=== PATIENT | male | born 1980 | race Caucasian/White ===

== ENCOUNTER 2018-08-13 20:25 | Emergency (ER) | payer MEDICAID ==
[2018-08-13 20:42] VITALS: BP 130/66
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
== END 2018-08-13 21:05 | disposition home or self-care (01) ==
LOC: EEVIPCON 20:25
DX: L97.529 Non-pressure chronic ulcer of other part of left foot with unspecified severity (principal); M20.42 Other hammer toe(s) (acquired), left foot

== ENCOUNTER 2018-10-07 20:59 | Inpatient (IN) | payer MEDICAID ==
[2018-10-07] MEDS ORDERED: NS 1,000 ML IV ONE (21:18)
[2018-10-07] MEDS ORDERED: ceFAZolin 2 GM/DEXTROSE 100 ML IV ONE (21:19)
[2018-10-07 22:05] LABS: PLATELET COUNT 176 10^3/uL (150-400)
[2018-10-07] MEDS ORDERED: ONDANSETRON 4 MG/2 ML VIAL IVP PRN (23:25)
[2018-10-07] MEDS ORDERED: NS 1,000 ML IV SCH (23:30)
--- NOTE | 2018-10-08 00:13 | PDGENHP ---
History and Physical - Chief Complaint left elbow pain - History of Present Illness Source - Patient provides history and appears reliable. EMR reviewed and case discussed with ED provider. HPI - this is a pleasant 38-year-old gentleman with past medical history significant for alcohol dependence, and a recent history of osteomyelitis in his left great toe that required amputation. Patient reports multiple injuries related to skateboarding. He recently sustained a fall on his left elbow lacerating it. Normally he has scrapes and cuts which heal on their own however this time patient has had worsening swelling and erythema and pain over the course of several days. Most recently patient had noticed increased swelling at his elbow joint without any joint pain with movement. Patient states that he attempted to squeeze at his elbow wound and he was able to get out serosanguineous type drainage. Patient denies any fevers although he has been feeling a little flushed. He does acknowledge some a night of sweats yesterday. Denies any nausea or vomiting. He denies any numbness tingling in his arm. He has chronic neuropathy in both feet. History Information - Allergies/Home Medication List Allergies/Adverse Reactions: No Known Allergies Allergy (Unverified 10/07/18 21:01) Home Medications: Amitriptyline HCl 08/13/18 [Last Taken Unknown] Gabapentin 08/13/18 [Last Taken Unknown] Hydroxyzine HCl 08/13/18 [Last Taken Unknown] Amitriptyline HCl 10/07/18 [Last Taken Unknown] Gabapentin 800 mg 10/07/18 [Last Taken Unknown] Hydroxyzine HCl 10/07/18 [Last Taken Unknown] I have personally reviewed and updated: family history, medical history, social history, surgical history - Past Medical History Additional medical history: History of osteomyelitis in the left great toe status post amputation. Alcohol dependence. Multiple injuries related to skateboarding accident. - Surgical History Additional surgical history: Left great toe amputation. - Family History Additional family history: Grandmother with colon and bladder cancer. Patient reports he has not seen his family in 7 years but does not believe there is any other chronic medical issues. - Social History Smoking Status: Current every day smoker Tobacco Use: Cigarettes (Up to 1 pack per day.) Alcohol Use: Heavy (Patient drinks hard liquor almost daily.) Drug Use: Marijuana Additional social history: Patient currently residing at a homeless [facility]. Cor status-full. Review of Systems Review of Systems: ROS: 10pt was reviewed & negative except for what was stated in HPI & below Constitutional: Reports: fever, other (Sweats overnight). Denies: chills EENMT: Reports: no symptoms Cardiac: Reports: no symptoms Respiratory: Reports: no symptoms Gastrointestinal: Reports: no symptoms Genitourinary: Reports: no symptoms Muscolosketal: Reports: other (Left arm pain.). Denies: joint pain (Patient denies any joint restrictions in the left elbow.) Skin: Reports: other (Left elbow wound with drainage, swelling, redness of the left forearm and increased pain.) Neurological: Reports: numbness (Patient with chronic neuropathy both feet.). Denies: weakness Hematologic/Lymphatic: Reports: no symptoms Physical Exam Physical Exam: Selected Entries 10/07/18 21:03 Blood Pressure Automatic Method Heart Rate 94 Respiratory 18 Rate O2 Sat (%) 94 Temperature (C) 37.3 C Blood Pressure 113/89 H Mean Arterial 97 Pressure (MAP) O2 Delivery Room Air Mode Temperature Oral Source Temp Pulse Resp BP Pulse Ox 37.0 C 74 16 126/68 H 90 L 10/08/18 00:00 10/08/18 00:00 10/08/18 00:00 10/08/18 00:00 10/08/18 00:00 Constitutional: no apparent distress, appears nourished, uncomfortable Eyes: anicteric sclera, EOMI Ears, Nose, Mouth, Throat: poor dentition, dry mucous membranes, other (No nasal discharge.) Cardiovascular: regular rate and rhythym, no murmur, rub, or gallop, pulses symmetric bilaterally, No edema Peripheral Pulses: 2+: dorsalis-pedis (R), dorsalis-pedis (L) Respiratory: no respiratory distress, no rales or rhonchi, No reduced air movement, No respiratory distress Gastrointestinal: normoactive bowel sounds, soft, non-tender abdomen, no palpable masses, No distension Genitourinary: no bladder tenderness, No delgadillo in urethra Skin: warm, normal color, no rashes or abrasions Neurologic: AAOx3, sensation intact bilaterally (Diminished lower extremities.) , No facial droop Psychiatric: interacting appropriately, not anxious, not encephalopathic, thought process linear Lab Data & Imaging Review 10/07/18 21:50 10/07/18 21:50 WBC 8.55 10^3/uL (3.80-9.50) 10/07/18 21:50 RBC 3.49 10^6/uL (4.40-6.38) L 10/07/18 21:50 Hgb 12.1 g/dL (13.7-17.5) L 10/07/18 21:50 Hct 33.9 % (40.0-51.0) L 10/07/18 21:50 MCV 97.1 fL (81.5-99.8) 10/07/18 21:50 MCH 34.7 pg (27.9-34.1) H 10/07/18 21:50 MCHC 35.7 g/dL (32.4-36.7) 10/07/18 21:50 RDW 13.9 % (11.5-15.2) 10/07/18 21:50 Plt Count 176 10^3/uL (150-400) 10/07/18 21:50 MPV 10.1 fL (8.7-11.7) 10/07/18 21:50 Neut % (Auto) 70.0 % (39.3-74.2) 10/07/18 21:50 Lymph % (Auto) 14.4 % (15.0-45.0) L 10/07/18 21:50 [place] % (Auto) 13.7 % (4.5-13.0) H 10/07/18 21:50 Eos % (Auto) 0.8 % (0.6-7.6) 10/07/18 21:50 Baso % (Auto) 0.5 % (0.3-1.7) 10/07/18 21:50 Nucleat RBC Rel Count 0.0 % (0.0-0.2) 10/07/18 21:50 Absolute Neuts (auto) 5.99 10^3/uL (1.70-6.50) 10/07/18 21:50 Absolute Lymphs (auto) 1.23 10^3/uL (1.00-3.00) 10/07/18 21:50 Absolute Monos (auto) 1.17 10^3/uL (0.30-0.80) H 10/07/18 21:50 Absolute Eos (auto) 0.07 10^3/uL (0.03-0.40) 10/07/18 21:50 Absolute Basos (auto) 0.04 10^3/uL (0.02-0.10) 10/07/18 21:50 Absolute Nucleated RBC 0.00 10^3/uL (0-0.01) 10/07/18 21:50 Immature Gran % 0.6 % (0.0-1.1) 10/07/18 21:50 Immature Gran # 0.05 10^3/uL (0.00-0.10) 10/07/18 21:50 Sodium 133 mEq/L (135-145) L 10/07/18 21:50 Potassium 4.1 mEq/L (3.5-5.2) 10/07/18 21:50 Chloride 98 mEq/L (97-110) 10/07/18 21:50 Carbon Dioxide 28 mEq/l (22-31) 10/07/18 21:50 Anion Gap 7 mEq/L (6-14) 10/07/18 21:50 BUN 10 mg/dL (7-23) 10/07/18 21:50 Creatinine 0.6 mg/dL (0.7-1.3) L 10/07/18 21:50 Estimated GFR > 60 10/07/18 21:50 Glucose 109 mg/dL (70-100) H 10/07/18 21:50 Calcium 8.7 mg/dL (8.5-10.4) 10/07/18 21:50 Imaging Review: Left Elbow, 3 Views Indication: Recent fall. Comparison: None Findings: The bones are anatomically aligned. No fracture or effusion. Moderate soft tissue swelling and subcutaneous gas is present along the dorsal aspect of the olecranon. No retained foreign body or periosteal reaction. Impression: 1. No acute fracture or effusion. 2. Diffuse posterior soft tissue swelling. Subcutaneous gas may be due to penetrating soft tissue injury or gas forming organism infection. No osteomyelitis. Dictated By: He Craft MD Visualized and Interpreted imaging results: Yes Assessment & Plan Assessment: 38-year-old male with history of alcohol dependence and remote osteo on the left great toe status post amputation presents to the emergency department complaining of several days of worsening left arm swelling pain and wound drainage at the left elbow following a fall. #Left arm cellulitis - patient with approximately 1 cm deep wound the left elbow following fall. He has been started on Unasyn. Erythema and swelling are quite extensive and do not feel this would be responsive appropriately to p.o. Antibiotics at this point. Patient with good radial pulse. He does not meet sepsis criteria. Anticipate he will require several days IV antibiotics. #Left elbow wound - patient with illness drainage. Wound cultures been obtained wound care consultation also ordered. X-ray of the elbow does not show any evidence of osteomyelitis. This some subcutaneous air at site of the wound and edema. Continue Unasyn as noted above. #Alcohol dependence - patient is reported history of withdrawals but no seizures. At this point patient feels that he would prefer to try to get off of alcohol and continue with Ativan. His last drink occurred approximately 4: 00 p.m. And patient reports that he still feels slightly buzzed when he arrived to the ED. Will monitor for signs of withdrawal initiate CIWA protocol as appropriate. #Hyponatremia - likely some component of dehydration versus alcohol dependence. Patient will be receiving continued IV fluids overnight on the medical floor will encourage oral intake. He does appear slightly dry. #Tobacco dependence - cessation encouraged. Patient declines nicotine patch. #Marijuana use - cessation also encouraged. #Anemia - likely of chronic disease in setting of alcohol dependence. Patient without elevation in MCV at this time. Thiamine replacement will be ordered. FEN - IV fluids overnight. Monitor sodium otherwise electrolytes appear adequate. Advance diet as tolerated. PPX-SCDs. Holding anticoagulation overnight pending reassessment in the morning for any potential need for surgical evaluation. Overall patient is low risk for DVT however. SCDs will be ordered. Encourage mobilization. Cor status-full Disposition-patient admitted to inpatient status on med surge floor. Anticipate greater than 2 midnight stay given the extensive nature of patient's cellulitis that warrants IV antibiotics at this time.
--- NOTE | 2018-10-08 02:25 | HOSPPROG ---
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 #Left arm cellulitis - patient with approximately 1 cm deep wound the left elbow following fall. He has been started on Unasyn. Erythema and swelling are quite extensive and do not feel this would be responsive appropriately to p.o. Antibiotics at this point. Patient with good radial pulse. He does not meet sepsis criteria. Anticipate he will require several days IV antibiotics. #Left elbow wound - patient with illness drainage. Wound cultures been obtained wound care consultation also ordered. X-ray of the elbow does not show any evidence of osteomyelitis. This some subcutaneous air at site of the wound and edema. Continue Unasyn as noted above. #Alcohol dependence - patient is reported history of withdrawals but no seizures. At this point patient feels that he would prefer to try to get off of alcohol and continue with Ativan. His last drink occurred approximately 4: 00 p.m. And patient reports that he still feels slightly buzzed when he arrived to the ED. Will monitor for signs of withdrawal initiate CIWA protocol as appropriate. #Hyponatremia - likely some component of dehydration versus alcohol dependence. Patient will be receiving continued IV fluids overnight on the medical floor will encourage oral intake. He does appear slightly dry. #Tobacco dependence - cessation encouraged. Patient declines nicotine patch. #Marijuana use - cessation also encouraged. #Anemia - likely of chronic disease in setting of alcohol dependence. Patient without elevation in MCV at this time. Thiamine replacement will be ordered. FEN - IV fluids overnight. Monitor sodium otherwise electrolytes appear adequate. Advance diet as tolerated. PPX-SCDs. Holding anticoagulation overnight pending reassessment in the morning for any potential need for surgical evaluation. Overall patient is low risk for DVT however. SCDs will be ordered. Encourage mobilization. Cor status-full Disposition-patient admitted to inpatient status on [facility] floor. Anticipate greater than 2 midnight stay given the extensive nature of patient's cellulitis that warrants IV antibiotics at this time. Objective: Vital Signs Temp Pulse Resp BP Pulse Ox 37.0 C 74 16 126/68 H 90 L 10/08/18 00:00 10/08/18 00:00 10/08/18 00:00 10/08/18 00:00 10/08/18 00:00 10/06/18 10/07/18 10/08/18 05:59 05:59 05:59 Intake Total 1000 Balance 1000
--- NOTE | 2018-10-08 02:57 | EDPHY ---
H & P Stated Complaint: Elbow Cellulitis Time Seen by Provider: 10/07/18 21:01 HPI/ROS: Chief complaint: Left elbow infection History of present illness: This is a 38-year-old male who presents to the emergency department concerned he has a left elbow infection. Reports a few days ago he fell onto the elbow cutting it open. Since then he has had increasing pain, redness and swelling. No report of fevers or chills, no red streaking, no abnormal coolness or paresthesias in the arm, he can still move the left arm well. His tetanus is reported as up-to-date. Review of systems: A 10 point review of systems was obtained and other than described above was negative - Personal History Current Tetanus/Diphtheria Vaccine: Unsure Current Tetanus Diphtheria and Acellular Pertussis (TDAP): Unsure - Medical/Surgical History Hx Asthma: No Hx Chronic Respiratory Disease: No Hx Diabetes: No Hx Cardiac Disease: No Hx Renal Disease: No Hx Cirrhosis: No Hx Alcoholism: Yes Hx HIV/AIDS: No Hx Splenectomy or Spleen Trauma: No Other PMH: neuropathy - Social History Smoking Status: Current every day smoker - Physical Exam Exam: General Appearance: Alert and nontoxic. Eyes: Pupils equal and round no injection. Respiratory: Chest is nontender, lungs are clear to auscultation. Cardiac: regular rate and rhythm. Gastrointestinal: Abdomen is soft and nontender, no masses, bowel sounds normal. Musculoskeletal: Patient is moving the left upper extremity well. He has full range of motion and strength in the left elbow without pain. Extremities have full range of motion and are nontender. Skin: There is erythema and edema starting around the olecranon region of the left elbow extending around and up onto the bicep region. It is warm and tender to palpation. Constitutional: Initial Vital Signs Temperature (C) 37.3 C 10/07/18 21:03 Heart Rate 94 10/07/18 21:03 Respiratory Rate 18 10/07/18 21:03 Blood Pressure 113/89 H 10/07/18 21:03 O2 Sat (%) 94 10/07/18 21:03 O2 Delivery Mode Room Air Allergies/Adverse Reactions: No Known Allergies Allergy (Unverified 10/07/18 21:01) Home Medications: Medication Instructions Recorded Amitriptyline HCl 08/13/18 Gabapentin 08/13/18 Hydroxyzine HCl 08/13/18 Amitriptyline HCl 10/07/18 Gabapentin 800 mg 10/07/18 Hydroxyzine HCl 10/07/18 Medical Decision Making - Diagnostics Imaging Results: Imaging Impressions Elbow X-Ray 10/07/18 21:18 Impression: 1. No acute fracture or effusion. 2. Diffuse posterior soft tissue swelling. Subcutaneous gas may be due to penetrating soft tissue injury or gas forming organism infection. No osteomyelitis. Imaging: I viewed and interpreted images myself ED Course/Re-evaluation: Patient is discussed with my secondary supervising physician Dr. Maurilio Bunch. Patient presents with what appears to be a significant cellulitis of the left elbow. However I do not appreciate evidence of severe complications such as septic joint or necrotizing fasciitis. Blood studies are obtained. He is started on 2 g of Ancef IV. He is admitted to the hospitalist service under the care of Dr. Savana Little for further evaluation and care. The plan has been discussed with the patient who voiced understanding and agreement with it. Differential Diagnosis: Included but not limited to cellulitis, abscess, bursitis, doubt full osteomyelitis, septic joint or necrotizing fasciitis - Data Points Laboratory Results: Laboratory Results 10/07/18 21:50 10/07/18 21:50 10/07/18 10/07/18 21:50 21:50 WBC 8.55 10^3/uL 10^3/uL (3.80-9.50) RBC 3.49 10^6/uL L 10^6/uL (4.40-6.38) Hgb 12.1 g/dL L g/dL (13.7-17.5) Hct 33.9 % L % (40.0-51.0) MCV 97.1 fL fL (81.5-99.8) MCH 34.7 pg H pg (27.9-34.1) MCHC 35.7 g/dL g/dL (32.4-36.7) RDW 13.9 % % (11.5-15.2) Plt Count 176 10^3/uL 10^3/uL (150-400) MPV 10.1 fL fL (8.7-11.7) Neut % (Auto) 70.0 % % (39.3-74.2) Lymph % (Auto) 14.4 % L % (15.0-45.0) [place] % (Auto) 13.7 % H % (4.5-13.0) Eos % (Auto) 0.8 % % (0.6-7.6) Baso % (Auto) 0.5 % % (0.3-1.7) Nucleat RBC Rel Count 0.0 % % (0.0-0.2) Absolute Neuts (auto) 5.99 10^3/uL 10^3/uL (1.70-6.50) Absolute Lymphs (auto) 1.23 10^3/uL 10^3/uL (1.00-3.00) Absolute Monos (auto) 1.17 10^3/uL H 10^3/uL (0.30-0.80) Absolute Eos (auto) 0.07 10^3/uL 10^3/uL (0.03-0.40) Absolute Basos (auto) 0.04 10^3/uL 10^3/uL (0.02-0.10) Absolute Nucleated RBC 0.00 10^3/uL 10^3/uL (0-0.01) Immature Gran % 0.6 % % (0.0-1.1) Immature Gran # 0.05 10^3/uL 10^3/uL (0.00-0.10) Sodium 133 mEq/L L mEq/L (135-145) Potassium 4.1 mEq/L mEq/L (3.5-5.2) Chloride 98 mEq/L mEq/L (97-110) Carbon Dioxide 28 mEq/l mEq/l (22-31) Anion Gap 7 mEq/L mEq/L (6-14) BUN 10 mg/dL mg/dL (7-23) Creatinine 0.6 mg/dL L mg/dL (0.7-1.3) Estimated GFR > 60 Glucose 109 mg/dL H mg/dL (70-100) Calcium 8.7 mg/dL mg/dL (8.5-10.4) Medications Given: Sodium Chloride (Ns) 1,000 mls @ 125 mls/hr IV CONT MEE Stop: 10/08/18 07:29 Last Admin: 10/08/18 00:34 Dose: 1,000 mls Discontinued Medications Sodium Chloride (Ns) 1,000 mls @ 0 mls/hr IV EDNOW ONE; Wide Open PRN Reason: Protocol Stop: 10/07/18 21:19 Last Admin: 10/07/18 22:00 Dose: 1,000 mls Cefazolin Sodium/Dextrose (Ancef) 100 mls @ 200 mls/hr IV EDNOW ONE PRN Reason: Protocol Stop: 10/07/18 21:48 Last Admin: 10/07/18 22:01 Dose: 100 mls Departure - Departure Disposition: [facility] Inpatient Acute Clinical Impression: Left arm cellulitis Condition: Good
[2018-10-08] MEDS: AMPICILLIN/SULBACTAM 3 GM in NS 100 ML IV SCH ×3 (04:42→20:43)
[2018-10-08] MEDS: IBUPROFEN 600 MG TAB PO PRN ×3 (04:49→20:45)
[2018-10-08 04:53] LABS: PLATELET COUNT 162 10^3/uL (150-400)
[2018-10-08] MEDS: oxyCODONE IR 5 MG TAB PO PRN ×2 (07:56→16:33)
[2018-10-08] MEDS: ACETAMINOPHEN 325 MG TAB PO PRN ×2 (07:56→16:33)
--- NOTE | 2018-10-08 12:52 | HOSPPROG ---
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 First encounter, chart reviewed. *left arm elbow area cellulitis -after fall on ice -on Unasyn -looks like a staph infection -curb sided ID and they agree w current treatment *left elbow wound -wound cx sent -xray shows no osteo *alcohol dependence -CIWA -no s/sx of withdrawal -will order prn Librium *hyponatremia -resolved *Nicotine dependence -declined patch, cessation recommended *Cannibis use *anemia -mild *plan: Mike will require another midnight stay for iv abx Subjective: Mike said he isn't have significant pain from left elbow area. Objective: Vital Signs Temp Pulse Resp BP Pulse Ox 36.8 C 63 14 122/66 H 96 10/08/18 12:00 10/08/18 12:00 10/08/18 12:00 10/08/18 12:00 10/08/18 12:00 Microbiology 10/07/18 23:46 Gram Stain - Final Elbow - Swab Laboratory Results 10/08/18 04:24 10/08/18 04:24 10/07/18 10/08/18 10/09/18 05:59 05:59 05:59 Intake Total 2130 Output Total 725 Balance 1405 - Physical Exam Constitutional: no apparent distress, unkempt Eyes: PERRL Ears, Nose, Mouth, Throat: hearing normal Cardiovascular: regular rate and rhythym Respiratory: no respiratory distress Gastrointestinal: normoactive bowel sounds Skin: other (left elbow area red without lymphadenopathy, able to get some serous purulent drainage) Musculoskeletal: full muscle strength, other (able to bend his elbow area without difficulty) Neurologic: AAOx3 Psychiatric: interacting appropriately ICD10 Worksheet Patient Problems: Problems Problem Status Onset Left arm cellulitis Acute
--- NOTE | 2018-10-08 14:21 | PDMN ---
Medical Necessity Medical necessity: Pt meets IP criteria as of 10/07/2018 per and MCG M-70 ( Cellulitis); est los > 2 mn for ongoing tx and management of L arm cellulitis in the setting of elbow wound s/p fall as well as ETOH dependence, hyponatremia and anemia; requiring IV ABX, CIWA protocol, wound care and pain management.
[2018-10-08] MEDS: GABAPENTIN 400 MG CAP PO SCH ×2 (16:33→20:46)
--- NOTE | 2018-10-08 17:00 | ASMTCMCOM ---
CM Note CM Note Notes: Pt is a 38 yo M with a history of ETOH dependence, osteomylitis of L great toe with am. Needs are TBD at this time. CM to follow. Plan: TBD Date Signed: 10/08/2018 04:59 PM Electronically Signed By:BERTA Sheridan
[2018-10-08] MEDS: LORazepam 0.5 MG TAB PO PRN (17:10)
[2018-10-08] MEDS: AMITRIPTYLINE HCL 25 MG TAB PO SCH (20:45)
[2018-10-08] MEDS: MELATONIN 3 MG TAB PO PRN (20:45)
--- NOTE | 2018-10-08 22:44 | PDCONSULT ---
<Autumn Guevara - Last Filed: 10/08/18 23:11> Field Instructor Note: - Chief Complaint Left elbow pain - History of Present Illness Supervising Physician: Dr. Rell Pineda. HPI: Patient is a pleasant 38-year-old D homeless male who presented to the ED following a left elbow laceration while skateboarding approximately 3-4 days ago, he does not recall exact DOI. He states normally he receives many cuts/ scrapes while skateboarding but this injury continued to cause pain and redness began to develop in addition to swelling. No other inciting injury or previous h/o trauma to the elbow. He presented to the ED 10/07/18 for F/U. He was admitted for cellulitis and placed on antibiotics and his erythema has begun to improve. Pain is well controlled at this time. Denies worsening pain, abnormal numbness/tingling, worsening change in ROM or strength, worsening swelling, fever, chills, worsening change in heat/color to the area since his admittance. History Information - Allergies/Home Medication List Allergies/Adverse Reactions: NKDA. Home Medications: Amitriptyline HCl, Gabapentin, Hydroxyzine. - Past Medical History Additional medical history: Peripheral neuropathy. History of osteomyelitis in the left great toe status post amputation. Alcohol dependence. Multiple injuries related to skateboarding accident. - Surgical History Additional surgical history: Left great toe amputation: no problems with bleeding/anesthesia at that time. - Family History Additional family history: Grandmother with colon and bladder cancer. - Social History Smoking Status: Current every day smoker Tobacco Use: Cigarettes (1ppd). Alcohol Use: Heavy (Daily hard liquor). Drug Use: Marijuana Additional social history: Patient currently residing at a homeless [facility]. FULL code status. POA: Self. Has not spoken to family in 7 years. Review of Systems Review of Systems: ROS: an otherwise 10pt was reviewed & negative except for as stated above. Physical Exam Physical Exam: Alone in room, able to respond appropriately to questions/ commands. Afebrile at this time. Constitutional: NAD, non-labored breathing, no diaphoresis. Eyes: EOMs intact. Ears, Nose, Mouth, Throat: Hearing normal, patent nares, moist bucosa. Cardiovascular: Non-labored breathing, no diaphoresis. Peripheral Pulses: 2+ BLUE/BLLE. Respiratory: Non-labored breathing, no diaphoresis. Gastrointestinal: soft, non-tender abdomen. MS: Focalized exam of b/l upper extremities: 5mm punctate wound noted to left elbow with mild serosanguinous drainage present and erythema around elbow, significantly decreased from prior outline performed in ED. Mild edema noted around area of erythema Calor associated with erythema around the elbow, approximately 11cm, but no longer has lymphangitis seen. No crepitation or gas felt during physical exam. No effusion noted. FROM with 5/5 strength present with brisk cap refill b/l and negative passive stretch. No pain during AROM/ PROM. DNVI with no focal deficits noted. All compartments soft with no other skin breakthrough noted. Calves soft/supple and NTTP b/l with negative b/l Homans. Neurologic: AAOx3, sensation intact bilaterally (Diminished lower extremities coinciding with h/o peripheral neuropathy). Psychiatric: interacting appropriately, not anxious, not encephalopathic, thought process linear Secondary Survey: Negative except for as stated above. Lab Data & Imaging Review Imaging Review: 3 views of left elbow shows no fractures, malalignments or deformities. Soft tissue swelling present over olecranon. Visualized and Interpreted imaging results: Yes by myself and Dr. Pineda. Labs: Swab of elbow wound showed gram positive cocci. Elevated CRP at this time. Will continue to monitor labs. Assessment & Plan Assessment: At this time patient's exam and findings were explained at length to the patient. Recommend continued plan per hospitalists regarding left elbow cellulitis with use of IV antibiotics and I/D consult. At this time appears there is no sign of active septic joint, however, we will continue to monitor as needed in close conjunction with hospitalists. Appreciate their consultation and the ability to assist in the care of this patient. Rest, ice, elevation prn recommended with dry dressing over punctate wound. Continue AROM/ PROM of left elbow as tolerated. Advised patient to watch for worsening pain, abnormal numbness/tingling, worsening ROM or strength, worsening change in heat/color of extremity ( specifically around original markings outlined in the ED) and to seek immediate medical attention if seen. He understands and agrees with this course of action. Patient was seen/examined in conjunction with Dr. Rell Pindea. Questions/concerns can be addressed to our clinic, [facility], at [phone]. <Rell Pineda - Last Filed: 10/09/18 10:29> Field Instructor Note: Agree with above. L elbow is nonsurgical at this time and responding to medical care, including IV abx. No fluid collection such as olecranon bursitis , gas, compartment syndrome or septic arthritis at this time. Continue non-op care, including local wound care. We will follow with you. Please call with any questions or change in his status.
[2018-10-09] MEDS: ACETAMINOPHEN 325 MG TAB PO PRN (00:42)
[2018-10-09] MEDS: oxyCODONE IR 5 MG TAB PO PRN (00:42)
[2018-10-09] MEDS: AMPICILLIN/SULBACTAM 3 GM in NS 100 ML IV SCH ×5 (01:26→23:08)
[2018-10-09] MEDS: IBUPROFEN 600 MG TAB PO PRN ×3 (05:44→23:04)
[2018-10-09] MEDS: GABAPENTIN 400 MG CAP PO SCH ×3 (08:37→21:06)
--- NOTE | 2018-10-09 12:15 | SOAPPROG ---
SOAP Progress Note Assessment/Plan: Assessment: L elbow laceration and wound infection (gm + cocci c/w staph) w/o any significant fluid collection or deep infection such as septic arthritis. He is improving with IV abx and medical management. Plan: Continue IV abx and medical care. Include local wound care with iodoform guaze packing and dsg changes BID-TID. Posterior long arm splint with elbow at 90 degrees, hand/wrist free. Sling prn. NWB LUE. All of the above discussed with Josee, who will obtain splint and apply. Please call with any questions. 10/09/18 12:15 Subjective: Pain well controlled. He feels his elbow is getting better, less red and hot, better motion. No fevers or chills noted. No LULA. Objective: Vital Signs Temp Pulse Resp BP Pulse Ox 36.9 C 85 17 124/91 H 96 10/09/18 12:00 10/09/18 12:00 10/09/18 12:00 10/09/18 12:00 10/09/18 12:00 Microbiology 10/07/18 23:46 Gram Stain - Final Elbow - Swab Laboratory Results 10/08/18 04:24 10/08/18 04:24 10/08/18 10/09/18 10/10/18 05:59 05:59 05:59 Intake Total 2130 2600 Output Total 725 1500 400 Balance 1405 1100 -400 L elbow erythema and calor improved from yesterday, edema present, no ecchymosis. 7-8mm laceration is open and w/o active drainage, though scant amount of purulence is expressible with milking. No palpable FC c/w a bursitis , no gas or crepitation. Compartments soft. ROM: 0-120 limited by minor pain , full P/S. DNVI BUE. Wound packed by me with 1/2" iodoform guaze and re-dressed. Wound does track somewhat, c/w olecranon bursal space. Tolerated well with limited pain. Micro: gm + cocci, most likely staph. ICD10 Worksheet Patient Problems: Problems Problem Status Onset Left arm cellulitis Acute
--- NOTE | 2018-10-09 15:16 | HOSPPROG ---
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 First encounter, chart reviewed. *left arm elbow area cellulitis -after fall on ice -on Unasyn -group A Strep -curb sided ID and they agree w current treatment *left elbow wound -wound cx sent -xray shows no osteo *alcohol dependence -CIWA -no s/sx of withdrawal -will order prn Librium *hyponatremia -resolved *Nicotine dependence -declined patch, cessation recommended *Cannibis use *anemia -mild *plan: Imke will require another midnight stay for iv abx cont supportive care Subjective: Still having pain. Tired. No other issues. Objective: Vital Signs Temp Pulse Resp BP Pulse Ox 36.9 C 85 17 124/91 H 96 10/09/18 12:00 10/09/18 12:00 10/09/18 12:00 10/09/18 12:00 10/09/18 12:00 Microbiology 10/07/18 23:46 Gram Stain - Final Elbow - Swab Laboratory Results 10/08/18 04:24 10/08/18 04:24 10/08/18 10/09/18 10/10/18 05:59 05:59 05:59 Intake Total 2130 2600 Output Total 725 1500 1100 Balance 1405 1100 -1100 - Physical Exam Constitutional: appears nourished, uncomfortable, No obese Eyes: PERRL, anicteric sclera, EOMI Ears, Nose, Mouth, Throat: moist mucous membranes, hearing normal, ears appear normal Cardiovascular: edema, No JVD, No tachycardia Respiratory: no respiratory distress, no rales or rhonchi, reduced air movement Gastrointestinal: normoactive bowel sounds, No tenderness, No ascites Skin: warm, normal color, erythema Musculoskeletal: joint effusion, joint tenderness, pain with ROM Neurologic: AAOx3 Psychiatric: not anxious, not encephalopathic, poor insight, poor judgement ICD10 Worksheet Patient Problems: Problems Problem Status Onset Left arm cellulitis Acute
[2018-10-09] MEDS: AMITRIPTYLINE HCL 25 MG TAB PO SCH (21:07)
[2018-10-09] MEDS: MELATONIN 3 MG TAB PO PRN (21:07)
[2018-10-10] MEDS: AMPICILLIN/SULBACTAM 3 GM in NS 100 ML IV SCH ×3 (05:32→17:50)
[2018-10-10] MEDS: oxyCODONE IR 5 MG TAB PO PRN ×2 (05:35→18:03)
[2018-10-10] MEDS: ACETAMINOPHEN 325 MG TAB PO PRN ×2 (07:41→18:02)
[2018-10-10] MEDS: GABAPENTIN 400 MG CAP PO SCH ×3 (07:41→20:52)
--- NOTE | 2018-10-10 12:55 | SOAPPROG ---
SOAP Progress Note Assessment/Plan: Assessment: L elbow laceration and wound infection with grp A strep pyo w/o any significant fluid collection or deep infection such as septic arthritis. He continues to improve with IV abx and medical management. Plan: Continue IV vs PO abx per ID recs and medical care. Include local wound care with iodoform guaze packing and dsg changes BID-TID while in-pt, daily changes once d/c'd. Consider wound care clinic referral for out-pt care. Posterior long arm splint with elbow at 90 degrees, hand/wrist free. Sling prn. NWB LUE. F/u with me 1 week after d/c. Please call with any questions. 10/09/18 12:15 10/10/18 12:53 Subjective: Continuing to improve subjectively. No LULA. Objective: Vital Signs Temp Pulse Resp BP Pulse Ox 36.6 C 71 16 135/87 H 94 10/10/18 08:00 10/10/18 08:00 10/10/18 08:00 10/10/18 08:00 10/10/18 08:00 Microbiology 10/07/18 23:46 Gram Stain - Final Elbow - Swab Wound Culture - Final Streptococcus Pyogenes Grp A Laboratory Results 10/08/18 04:24 10/08/18 04:24 10/09/18 10/10/18 10/11/18 05:59 05:59 05:59 Intake Total 2600 900 Output Total 1500 2100 Balance 1100 -1200 AF, VSS. L elbow improving with less erythema, edema and +skin wrinkle. Comp' s soft. FROM elbow. Wound packed, no expressible pus or palp FC. DNVI BUE. Micro: +s. pyo A ICD10 Worksheet Patient Problems: Problems Problem Status Onset Left arm cellulitis Acute
--- NOTE | 2018-10-10 13:32 | HOSPPROG ---
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 *left arm elbow area cellulitis -after fall on ice -on Unasyn -group A Strep -appreciate ortho consult *left elbow wound -wound cx sent -xray shows no osteo *alcohol dependence -CIWA -no s/sx of withdrawal -prn Librium *hyponatremia -resolved *Nicotine dependence -declined patch, cessation recommended *Cannibis use *anemia -mild *plan: Mike will require another midnight stay for iv abx cont supportive care Subjective: Feeling better today. Less tired. Objective: Vital Signs Temp Pulse Resp BP Pulse Ox 36.6 C 71 16 135/87 H 94 10/10/18 08:00 10/10/18 08:00 10/10/18 08:00 10/10/18 08:00 10/10/18 08:00 Microbiology 10/07/18 23:46 Gram Stain - Final Elbow - Swab Wound Culture - Final Streptococcus Pyogenes Grp A Laboratory Results 10/08/18 04:24 10/08/18 04:24 10/09/18 10/10/18 10/11/18 05:59 05:59 05:59 Intake Total 2600 900 Output Total 1500 2100 Balance 1100 -1200 - Physical Exam Constitutional: no apparent distress, appears nourished Eyes: PERRL, anicteric sclera Ears, Nose, Mouth, Throat: moist mucous membranes, hearing normal Cardiovascular: No JVD, No edema Respiratory: no respiratory distress, reduced air movement Gastrointestinal: No tenderness, No ascites Skin: warm, erythema, No mottled Musculoskeletal: joint tenderness, pain with ROM, generalized weakness Neurologic: AAOx3 Psychiatric: interacting appropriately, not anxious, not encephalopathic ICD10 Worksheet Patient Problems: Problems Problem Status Onset Left arm cellulitis Acute
[2018-10-10] MEDS: IBUPROFEN 600 MG TAB PO PRN (16:44)
[2018-10-10] MEDS: MELATONIN 3 MG TAB PO PRN (20:52)
[2018-10-10] MEDS: AMITRIPTYLINE HCL 25 MG TAB PO SCH (20:52)
[2018-10-11] MEDS: oxyCODONE IR 5 MG TAB PO PRN ×3 (00:24→21:16)
[2018-10-11] MEDS: AMPICILLIN/SULBACTAM 3 GM in NS 100 ML IV SCH ×4 (00:25→17:34)
[2018-10-11] MEDS: IBUPROFEN 600 MG TAB PO PRN ×2 (00:25→11:52)
[2018-10-11] MEDS: LORazepam 0.5 MG TAB PO PRN ×3 (00:33→17:33)
--- NOTE | 2018-10-11 07:39 | SOAPPROG ---
SOAP Progress Note Assessment/Plan: Assessment: L elbow laceration and wound infection (gm + cocci c/w staph) w/o any significant fluid collection or deep infection such as septic arthritis. He is improving with IV abx and medical management. Plan: Continue IV abx and current medical care per hospital team. Include local wound care with iodoform guaze packing and dsg changes BID-TID. Posterior long arm splint with elbow at 90 degrees, hand/wrist free. Sling prn. NWB LUE. Please call Dr. Castillo or Autumn SANDOVAL with any questions. Discharge: Progressing 10/11/18 07:41 Subjective: Subjective: Pain well controlled and Mike appears to be in good spirit/mood He feels his elbow is getting better day by day, less red and hot, better motion. No fever noted. He is having some intermittent chills. Denies CP, SOB, or N/V Objective: Vital Signs Temp Pulse Resp BP Pulse Ox 36.5 C 67 16 120/93 H 94 10/11/18 07:30 10/11/18 07:30 10/11/18 07:30 10/11/18 07:30 10/11/18 07:30 Microbiology 10/07/18 23:46 Gram Stain - Final Elbow - Swab Wound Culture - Final Streptococcus Pyogenes Grp A Laboratory Results 10/08/18 04:24 10/08/18 04:24 10/10/18 10/11/18 10/12/18 05:59 05:59 05:59 Intake Total 900 350 Output Total 2100 Balance -1200 350 PHYSICAL EXAM Alert and Oriented X3 Normal Mood/Affect Calm appearing LUE Splint and dressing removed. Moderate swelling and erythema localized around elbow (but improved since yesterday). No active drainage as packing is in place. Compartments soft and non-tender. Full ROM of wrist and fingers. Good strategic advisor strength. Distal Neurovasculature intact. ICD10 Worksheet Patient Problems: Problems Problem Status Onset Left arm cellulitis Acute
[2018-10-11] MEDS: GABAPENTIN 400 MG CAP PO SCH ×3 (09:03→20:55)
[2018-10-11] MEDS: ACETAMINOPHEN 325 MG TAB PO PRN (09:03)
--- NOTE | 2018-10-11 10:24 | HOSPPROG ---
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 *left arm elbow area cellulitis -after fall on ice -on Unasyn -group A Strep -appreciate ortho consult -I took care of him two days ago, skin is hot and has serous, purulent drainage when I evaluated today -will ask ID to get involved *left elbow wound -wound cx sent -xray shows no osteo *alcohol dependence -CIWA -no s/sx of withdrawal -prn Librium *hyponatremia -resolved *Nicotine dependence -declined patch, cessation recommended *Cannibis use *anemia -mild *homelessness -will ask CM to arrange a bed at the intermediate * ID to see today. He is improving slowly. Subjective: Mike is c/o ongoing pain at the left elbow site, the splint placed has helped w the pain. Objective: Vital Signs Temp Pulse Resp BP Pulse Ox 36.5 C 67 16 120/93 H 94 10/11/18 07:30 10/11/18 07:30 10/11/18 07:30 10/11/18 07:30 10/11/18 07:30 Microbiology 10/07/18 23:46 Gram Stain - Final Elbow - Swab Wound Culture - Final Streptococcus Pyogenes Grp A Laboratory Results 10/08/18 04:24 10/08/18 04:24 10/10/18 10/11/18 10/12/18 05:59 05:59 05:59 Intake Total 900 350 Output Total 2100 Balance -1200 350 - Physical Exam Constitutional: no apparent distress, appears nourished, uncomfortable Eyes: PERRL Ears, Nose, Mouth, Throat: hearing normal Respiratory: no respiratory distress Skin: warm, other (left forearm area warm, took dressing off and around the packing in the elbow was serous, purulent drainage) Neurologic: AAOx3 Psychiatric: interacting appropriately ICD10 Worksheet Patient Problems: Problems Problem Status Onset Left arm cellulitis Acute
[2018-10-11] MEDS: SULFAMETHOX/TMP 800/160 MG 1 TAB PO SCH ×2 (13:21→20:56)
--- NOTE | 2018-10-11 13:37 | ASMTCMCOM ---
CM Note CM Note Notes: Pt still on IV antibiotics, pt elbow had drainage today. ID to consult. Pt CIWA at 3 now. Pending is antibiotic plan, pt may need wound care clinic. CM to follow. D/c needs TBD still. Date Signed: 10/11/2018 01:36 PM Electronically Signed By:DARLYN Dia
--- NOTE | 2018-10-11 14:10 | PDCONSULT ---
Lawn Care Technician Note: Infectious Diseases Consult Note Impression: 38-year-old man with acute purulent cellulitis the left elbow after a fall. Suspect delayed resolution related to inability of purulence to drain with packing in the wound. Expressed purulence from around the wound until no more expressible fluid is obtainable and left the packing out of the wound so we can drain. Added oral Bactrim as this is consistent with Staphylococcus aureus as a cause of purulent cellulitis. 1. Left elbow cellulitis with underlying abscess, acute; no evidence for septic arthritis 2. Left elbow laceration 3. Alcohol abuse Plan: 1. Continue Unasyn 2. Start Bactrim 2 double-strength twice daily; 3. Discussed potential side effects of both antibiotics which include antibiotic associated diarrhea, C diff colitis, hyperkalemia, rash 4. Repeat CBC with diff and chemistries tomorrow Ladarius Hsieh MD Infectious Diseases Chief Complaint: Redness and pain in left elbow after a fall Requesting Provider: Shannon Keller Reason for Referral: Consultation was requested by Shannon Keller regarding antimicrobial management. HPI: 38-year-old man presented to the ED with approximately a week of increasing erythema, pain, and swelling of the left elbow. He notes a fall from a standing height on black top from a slipped on ice with all of his await the fell onto his left elbow. He was wearing both a long sleeve jacket and a long sleeve shirts at the time of his fall did not have any soil contamination of the caught in his elbow that developed. He notes no shoulder pain from the fall and no other joint pains. He presented to the ED because the pain and swelling did not improve on their own with the erythema spreading down his forearm. He had swelling extending down his forearm and into his hand that included his fingers. The cut that developed in his elbow from the fall initially blood with no purulent discharge. He notes no fever, chills, or night sweats after the fall including over the subsequent days as the swelling and erythema spread. Since admission he has had some improvement of the swelling of the left upper extremity and a slight improvement of the erythema. His arm has been maintained in a splint with dressing changes twice per day. He notes no diarrhea or rash since being placed on Unasyn admission. He has no other acute concerns. Past Medical History: Left great toe osteomyelitis Past Surgical History: Left great toe amputation December 2017 Social History: Smokes approximately a pack of cigarettes per day, drinks alcohol daily smokes marijuana daily, current homeless and sleeping on the street, no sexual activity over the past few months and none since his last HIV test which was negative Family History: No recurrent infections Allergies: NKDA Medications: Reviewed in medical record and confirmed with patient. ROS: 10 organ systems reviewed; pertinent positives and negatives listed in the HPI, all other organ systems negative. Physical Exam: VS: Reviewed Gen: No acute distress; Breathing comfortably without exogenous oxygen; Able to speak in complete sentences Eyes: No conjunctival injection; No scleral icterus HENT: No gross deformities Neck: No limitation in range of motion Pulm: Breath sounds clear to the bases bilaterally; No wheeze, rhonchi, or rales CV: Normal S1 and S2; Regular rate and rhythm; No murmurs, rubs, or gallops; No lower extremity edema Abd: Not distended; Normo-active bowel sounds; Soft; Non-tender Skin: A full skin exam including exposed bilateral upper extremities, bilateral lower extremities to the knees, face, neck, abdomen, chest, and back performed; Skin intact, warm, with no rash excepting the left elbow and erythema extending to the distal forearm MSK: Left elbow with approximately 1 cm linear laceration with visible soft tissue underneath; area of fluctuance distal to the laceration with fluid able to be mobilized and expressed through the laceration approximately 1-2 cc of purulent/bloody drainage expressed on to the gauze pad Ext: No clubbing or cyanosis Neuro: Awake and alert Psych: Normal mood and blunted affect Labs/Imaging: All microbiology testing (culture and non-culture) reviewed in the medical record. Personally reviewed and interpreted the images of the following radiographs: Left elbow x-ray without evidence for fracture. Medications Generic Name Dose Route Start Last Admin Trade Name Freq PRN Reason Stop Dose Admin Ampicillin Sodium/Sulbactam 100 mls @ 200 mls/hr 10/08/18 05:00 10/11/18 11: 52 Sodium 3 gm/ Sodium Chloride IV 11/07/18 04:59 100 mls Q6 [facility] Protocol Trimethoprim/Sulfamethoxazole 2 ea 10/11/18 12:30 10/11/18 13:21 Bactrim Ds PO 11/10/18 12:29 2 ea BID [facility] Protocol Laboratory Tests 10/07/18 10/07/18 10/08/18 21:50 21:50 04:24 WBC 8.55 7.04 Hgb 12.1 L 11.9 L Plt Count 176 162 Creatinine 0.6 L C-Reactive Protein 10/08/18 10/08/18 04:24 04:24 WBC Hgb Plt Count Creatinine 0.6 L C-Reactive Protein 57.6 H Ongoing monitoring for antimicrobial toxicity with: CBC, BMP. [id number] time with patient: 63 minutes with >50% of [id number] time spent in counseling, patient education, and coordinating care. Counseling provided included the microbiology of skin and soft tissue infections, purulent Staph infections, expected time to resolution, natural history without treatment, and side effects of treatment.
[2018-10-11] MEDS: AMITRIPTYLINE HCL 25 MG TAB PO SCH (20:56)
[2018-10-11] MEDS: ceFAZolin 2 GM/DEXTROSE 100 ML IV SCH (20:57)
[2018-10-12] MEDS: ceFAZolin 2 GM/DEXTROSE 100 ML IV SCH ×3 (05:32→21:54)
[2018-10-12] MEDS: oxyCODONE IR 5 MG TAB PO PRN ×3 (05:38→21:54)
[2018-10-12 05:55] LABS: PLATELET COUNT 450 10^3/uL (150-400)
[2018-10-12] MEDS: GABAPENTIN 400 MG CAP PO SCH ×3 (08:41→21:51)
[2018-10-12] MEDS: SULFAMETHOX/TMP 800/160 MG 1 TAB PO SCH ×3 (08:42→21:51)
--- NOTE | 2018-10-12 09:23 | PCMIDPN ---
Assessment/Plan: Assessment: 38-year-old man with acute purulent cellulitis of the left elbow after a fall. There is improvement of the erythema distally from the area of laceration on the left elbow, again able to express 1-2 cc of purulence from the wound. Change the dressing frequency to 3 times a day and wrapped loosely and cover with gauze to allow for drainage. Allowing drainage with accelerate healing and resolution of the cellulitis. 1. Left ankle cellulitis with underlying abscess, acute; no evidence for septic arthritis, improving 2. Left elbow laceration secondary to fall 3. Alcohol abuse 4. Thrombocytosis, likely secondary to inflammatory response related to cellulitis and abscess Plan: 1. Continue cefazolin 2 g q.8h 2. Continue Bactrim but increase dose to 2 double-strength tablets 3 times a day (12.8mg/kg/day) 3. Believe left upper extremity out of splint if tolerated 4. Dressing changes to be 3 times a day with gauze wrapped with Kerlix loosely to allow for drainage; also change dressing if gauze is soiled between scheduled changes 5. Discussed in detail potential side effects of Bactrim including hyperkalemia , increased creatinine, antibiotic associated diarrhea, and C diff colitis Ladarius Hsieh MD Infectious Diseases 10/12/18 09:30 Subjective: No fever or chills but does have occasional sensation of warmth in the morning. Denies diarrhea, nausea, rash. Appetite normal. Ambulating without difficulty. No new concerns today. Objective: Vital Signs Temp Pulse Resp BP Pulse Ox 36.4 C 104 H 14 115/75 95 10/12/18 08:00 10/12/18 08:00 10/12/18 08:00 10/12/18 08:00 10/12/18 08:00 Laboratory Results 10/12/18 05:23 10/12/18 05:23 10/11/18 10/12/18 10/13/18 05:59 05:59 05:59 Intake Total 350 350 Output Total 1450 Balance 350 -1100 ESR 6 MM/HR (0-15) 10/08/18 04:24 C-Reactive Protein 57.6 mg/L (<10.0) H 10/08/18 04:24 Medications Generic Name Dose Route Start Last Admin Trade Name Freq PRN Reason Stop Dose Admin Trimethoprim/Sulfamethoxazole 2 ea 10/12/18 14:00 Bactrim Ds PO 11/11/18 13:59 Q8 [facility] Protocol Cefazolin Sodium/Dextrose 100 mls @ 200 mls/hr 10/11/18 22:00 10/12/18 05:32 Ancef IV 11/10/18 21:59 100 mls Q8HRS [facility] Protocol Discontinued Medications Generic Name Dose Route Start Last Admin Trade Name Shen PRN Reason Stop Dose Admin Ampicillin Sodium/Sulbactam 100 mls @ 200 mls/hr 10/08/18 05:00 10/11/18 17: 34 Sodium 3 gm/ Sodium Chloride IV 11/07/18 04:59 100 mls Q6 [facility] Protocol Microbiology 10/07/18 23:46 Elbow - Swab Gram Stain - Final 10/07/18 23:46 Elbow - Swab Wound Culture - Final Streptococcus Pyogenes Grp A Laboratory Tests 10/08/18 10/08/18 10/12/18 04:24 04:24 05:23 WBC 7.04 9.87 H Hgb 11.9 L 13.4 L Plt Count 162 450 H Potassium Creatinine C-Reactive Protein 57.6 H 10/12/18 05:23 WBC Hgb Plt Count Potassium 4.5 Creatinine 0.7 C-Reactive Protein - Physical Exam General Appearance: alert, no apparent distress, non-toxic EENT: No scleral icterus Extremities: other (Left elbow with approximately 1 cm laceration with erythema extending distally the dorsal forearm and extending medially to the anterior forearm; tenderness about the left elbow with mobilization of fluctuant area) Skin: other (No rash except for the area of cellulitis on the left arm and elbow ) Neuro/Psych: alert, normal mood/affect, oriented x 3, No confused - Time Spent With Patient Time Spent with Patient: greater than 35 minutes Time Spent with Patient: Greater than 35 minutes spent on this patients care, greater than 50% of time spent counseling, educating, and coordinating care regarding the above mentioned plan. ICD10 Worksheet Patient Problems: Problems Problem Status Onset Left arm cellulitis Acute
[2018-10-12] MEDS: IBUPROFEN 600 MG TAB PO PRN ×2 (10:19→16:17)
[2018-10-12] MEDS: ACETAMINOPHEN 325 MG TAB PO PRN (10:20)
[2018-10-12] MEDS: ONDANSETRON DISINTEGRATING 4 MG TAB PO PRN ×2 (12:13→16:17)
--- NOTE | 2018-10-12 16:44 | HOSPPROG ---
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 *left arm elbow area cellulitis -after fall on ice -changed to Cefazolin -Bactrim added for MRSA coverage-he had purulent drainage -group A Strep *left elbow wound -wound cx sent -xray shows no osteo *alcohol dependence -CIWA -no s/sx of withdrawal -prn Librium *hyponatremia -resolved *Nicotine dependence -declined patch, cessation recommended *Cannibis use *anemia -mild *homelessness -will ask CM to arrange a bed at the senior care * Plan: slow improvement, suspect he will dc in the next few days w oral abx Subjective: Mike is feeling better daily. Objective: Vital Signs Temp Pulse Resp BP Pulse Ox 36.3 C 82 12 108/71 94 10/12/18 15:55 10/12/18 15:55 10/12/18 15:55 10/12/18 15:55 10/12/18 15:55 Laboratory Results 10/12/18 05:23 10/12/18 05:23 10/11/18 10/12/18 10/13/18 05:59 05:59 05:59 Intake Total 350 350 Output Total 1450 Balance 350 -1100 - Physical Exam Constitutional: no apparent distress, appears nourished, not in pain Eyes: PERRL Ears, Nose, Mouth, Throat: hearing normal Respiratory: no respiratory distress Skin: warm, other (left forearm still warm, red, less swelling, has a bit more redness extending towards the forearm area) Neurologic: AAOx3 Psychiatric: interacting appropriately ICD10 Worksheet Patient Problems: Problems Problem Status Onset Left arm cellulitis Acute
[2018-10-12] MEDS: AMITRIPTYLINE HCL 25 MG TAB PO SCH (21:51)
[2018-10-13] MEDS: SULFAMETHOX/TMP 800/160 MG 1 TAB PO SCH ×3 (05:42→21:54)
[2018-10-13] MEDS: ceFAZolin 2 GM/DEXTROSE 100 ML IV SCH (05:43)
[2018-10-13 06:10] LABS: PLATELET COUNT 465 10^3/uL (150-400)
--- NOTE | 2018-10-13 08:49 | PCMIDPN ---
Assessment/Plan: Assessment: 38-year-old man with acute purulent cellulitis of the left elbow after a fall. Overall the left elbow cellulitis and abscess or improving, with evolution to serosanguineous drainage as opposed to the gross purulence that was expressed of the last few days. More distally the elbows becoming more indurated with decreased intensity of erythema consistent with improving localized infection. 1. Hyperkalemia, mild; Bactrim side effect 2. Left elbow cellulitis with underlying abscess, acute; no evidence for septic arthritis, improving 3. Left elbow laceration secondary to fall 4. Alcohol abuse 5. Thrombocytosis, likely secondary to inflammatory response related to cellulitis and abscess Plan: 1. Encourage free water intake to clear except potassium, advised he exclude banana with breakfast and his smoothies the contains banana 2. Repeat potassium tomorrow 3. Stopped cefazolin 2 g q.8h 4. Continue Bactrim but decrease dose to 2 double-strength tablets 2 times a day (8.5mg/kg/day) 5. Leave left upper extremity out of splint if tolerated 6. Dressing changes to be 3 times a day with gauze wrapped with Kerlix loosely to allow for drainage; also change dressing if gauze is soiled between scheduled changes 7. Discussed in detail potential side effects of Bactrim including hyperkalemia , increased creatinine, antibiotic associated diarrhea, and C diff colitis Ladarius Hsieh MD Infectious Diseases 10/13/18 08:45 Subjective: No fever or chills. Denies diarrhea, nausea, rash. Appetite normal. Ambulating without difficulty. No new concerns today. Objective: Vital Signs Temp Pulse Resp BP Pulse Ox 36.5 C 84 16 104/71 94 10/13/18 07:29 10/13/18 07:29 10/13/18 07:29 10/13/18 07:29 10/13/18 07:29 Laboratory Results 10/13/18 05:14 10/13/18 05:14 10/12/18 10/13/18 10/14/18 05:59 05:59 05:59 Intake Total 350 500 Output Total 1450 Balance -1100 500 ESR 6 MM/HR (0-15) 10/08/18 04:24 C-Reactive Protein 57.6 mg/L (<10.0) H 10/08/18 04:24 Medications Generic Name Dose Route Start Last Admin Trade Name Shen PRN Reason Stop Dose Admin Cefazolin Sodium/Dextrose 100 mls @ 200 mls/hr 10/11/18 22:00 10/13/18 05:43 Ancef IV 11/10/18 21:59 100 mls Q8HRS [facility] Protocol Trimethoprim/Sulfamethoxazole 2 ea 10/13/18 09:00 Bactrim Ds PO 11/12/18 08:59 BID [facility] Protocol Discontinued Medications Generic Name Dose Route Start Last Admin Trade Name Freq PRN Reason Stop Dose Admin Trimethoprim/Sulfamethoxazole 2 ea 10/11/18 12:30 10/12/18 08:42 Bactrim Ds PO 11/10/18 12:29 2 ea [facility] Protocol Trimethoprim/Sulfamethoxazole 2 ea 10/12/18 16:00 10/13/18 05:42 Bactrim Ds PO 11/11/18 15:59 2 ea Q8 [facility] Protocol Laboratory Tests 10/12/18 10/12/18 10/13/18 05:23 05:23 05:14 WBC 9.87 H 7.95 Hgb 13.4 L 14.2 Plt Count 450 H 465 H Absolute Seg Neuts 4.37 Absolute Band Neuts 0.00 Potassium 4.5 10/13/18 05:14 WBC Hgb Plt Count Absolute Seg Neuts Absolute Band Neuts Potassium 5.3 H - Physical Exam General Appearance: alert, no apparent distress, non-toxic EENT: No scleral icterus Neck: full range of motion, supple Extremities: other (See skin exam) Skin: other (Left elbow erythema with a pocket of fluctuance, expressed serosanguineous fluid is less thick than the previous days, no isadora pus, erythema extends the dorsum of the left forearm approximately [address] towards the wrist with induration more proximally, erythema over the anterior portion of the forearm decreased, there is tenderness to palpation) Neuro/Psych: alert, normal mood/affect, oriented x 3, No confused - Time Spent With Patient Time Spent with Patient: greater than 25 minutes Time Spent with Patient: Greater than 25 minutes spent on this patients care, greater than 50% of time spent counseling, educating, and coordinating care regarding the above mentioned plan. ICD10 Worksheet Patient Problems: Problems Problem Status Onset Left arm cellulitis Acute
[2018-10-13] MEDS: GABAPENTIN 400 MG CAP PO SCH ×3 (09:07→21:54)
[2018-10-13] MEDS: IBUPROFEN 600 MG TAB PO PRN ×3 (09:18→21:55)
[2018-10-13] MEDS: LORazepam 0.5 MG TAB PO PRN ×2 (09:19→19:03)
[2018-10-13] MEDS: oxyCODONE IR 5 MG TAB PO PRN ×3 (09:19→21:55)
[2018-10-13] MEDS: ACETAMINOPHEN 325 MG TAB PO PRN ×2 (14:00→19:04)
--- NOTE | 2018-10-13 14:47 | HOSPPROG ---
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 *left arm elbow area cellulitis -after fall on ice -Cefazolin DC'd -Bactrim added for MRSA coverage-he had purulent drainage -group A Strep *left elbow wound -xray shows no osteo *alcohol dependence -CIWA DC -no s/sx of withdrawal -prn Librium *hyponatremia -resolved *Nicotine dependence -declined patch, cessation recommended *Hyperkalemia -related to bactrim dose -recheck in am *Cannibis use *anemia -mild *homelessness -will ask CM to arrange a bed at the senior living * Plan: slow improvement change to PO abx needs dressing changes 3 times a day follow in hospital Subjective: Feeling better. Less pain in elbow. Objective: Vital Signs Temp Pulse Resp BP Pulse Ox 36.5 C 84 16 104/71 94 10/13/18 07:29 10/13/18 07:29 10/13/18 07:29 10/13/18 07:29 10/13/18 07:29 Laboratory Results 10/13/18 05:14 10/13/18 05:14 10/12/18 10/13/18 10/14/18 05:59 05:59 05:59 Intake Total 350 500 Output Total 1450 Balance -1100 500 - Physical Exam Constitutional: no apparent distress, appears nourished Eyes: PERRL, anicteric sclera Ears, Nose, Mouth, Throat: moist mucous membranes, hearing normal Cardiovascular: No JVD, No edema Respiratory: no respiratory distress, reduced air movement Gastrointestinal: No tenderness, No ascites Skin: warm, erythema Musculoskeletal: joint tenderness, pain with ROM, generalized weakness Neurologic: AAOx3 Psychiatric: not anxious, not encephalopathic, thought process linear ICD10 Worksheet Patient Problems: Problems Problem Status Onset Left arm cellulitis Acute
--- NOTE | 2018-10-13 15:37 | ASMTCMCOM ---
CM Note CM Note Notes: Spoke w/[employer], pt will dc to [facility] on Tuesday on oral abx. CM to call and reserve bed. DC Plan: [facility] Date Signed: 10/13/2018 03:36 PM Electronically Signed By:Carmita Burrell RN
[2018-10-13] MEDS: AMITRIPTYLINE HCL 25 MG TAB PO SCH (21:54)
[2018-10-14] MEDS: IBUPROFEN 600 MG TAB PO PRN (08:20)
[2018-10-14] MEDS: GABAPENTIN 400 MG CAP PO SCH ×3 (08:20→22:20)
[2018-10-14] MEDS: oxyCODONE IR 5 MG TAB PO PRN ×3 (08:20→22:20)
[2018-10-14] MEDS ORDERED: DOXYCYCLINE HYCLATE 100 MG CAP/TAB PO SCH (09:00)
--- NOTE | 2018-10-14 12:53 | PCMIDPN ---
Assessment/Plan: 1. Left elbow septic olecranon bursitis/forearm cellulitis secondary to group a strep: Cellulitic component has markedly improved compared with previous as per patient. Still has some scant drainage from the bursa. Patient was transitioned to Bactrim 2 days ago, but has had recalcitrant hyperkalemia, necessitating a change to doxycycline. Of note, doxycycline unfortunately does not provide good coverage for group a strep. Given extent of infection and his homelessness, would prefer to put him back on cefazolin intravenously while he is in-house, and discharge on Tuesday with an oral beta-lactam. Asked the patient whether not he could remember to take an antibiotic like Keflex 4 times daily. He honestly told me that that would be difficult for him and he would prefer a twice daily drug. Augmentin 875 p. O. Twice daily is fine. Will also ask wound Care to see him. Expressed the importance of making sure that his elbow wound closes, to prevent additional complications such as osteomyelitis. Patient expressed understanding. 2. Miscellaneous: Will obtain hepatitis a total antibody to ensure he is immune in the setting of and hepatitis a outbreak among the homeless. This was explained to him today. He declines a flu vaccine in spite of my counseling. He states his last Tdap was in the past few years, given to him at [facility]. Over 25 min spent with this patient today. Subjective: Still has some tenderness of his left elbow and forearm and mild drainage from the incision. Transition to oral doxycycline this morning given refractory hyperkalemia from Bactrim. Objective: Doxycycline 100 mg p.o. Twice daily (total antibiotics day 7) No fevers Vital Signs Temp Pulse Resp BP Pulse Ox 36.4 C 88 16 104/70 94 10/14/18 08:00 10/14/18 08:00 10/14/18 08:00 10/14/18 08:00 10/14/18 08:00 Laboratory Results 10/13/18 05:14 10/14/18 05:17 10/13/18 10/14/18 10/15/18 05:59 05:59 05:59 Intake Total 500 Balance 500 ESR 6 MM/HR (0-15) 10/08/18 04:24 C-Reactive Protein 57.6 mg/L (<10.0) H 10/08/18 04:24 Wound culture with group a strep - Physical Exam General Appearance: alert, no apparent distress EENT: pharynx normal, No thrush Respiratory: lungs clear Extremities: other (Elbow: Small approximately 1 cm incision over olecranon there is draining a small amount of seropurulent drainage. No fluctuance. He does have some soft tissue pinkish erythema that extends up the forearm that has improved.) ICD10 Worksheet Patient Problems: Problems Problem Status Onset Left arm cellulitis Acute
[2018-10-14] MEDS ORDERED: ceFAZolin 2 GM/DEXTROSE 100 ML IV SCH (13:00)
--- NOTE | 2018-10-14 13:25 | HOSPPROG ---
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 *left arm elbow area cellulitis -after fall on ice -Cefazolin restarted, D/W Dr Perez -Bactrim added for MRSA coverage-he had purulent drainage -group A Strep *left elbow wound -xray shows no osteo *alcohol dependence -CIWA DC -no s/sx of withdrawal -prn Librium *hyponatremia -resolved *Nicotine dependence -declined patch, cessation recommended *Hyperkalemia -related to bactrim dose -DC bactrim -follow labs *Cannibis use *anemia -mild *homelessness -will ask CM to arrange a bed at the residential * Plan: slow improvement change to PO abx needs dressing changes 3 times a day follow in hospital Subjective: Feeling ok. No specific issues. Elbow still painful. Objective: Vital Signs Temp Pulse Resp BP Pulse Ox 36.4 C 88 16 104/70 94 10/14/18 08:00 10/14/18 08:00 10/14/18 08:00 10/14/18 08:00 10/14/18 08:00 Laboratory Results 10/13/18 05:14 10/14/18 05:17 10/13/18 10/14/18 10/15/18 05:59 05:59 05:59 Intake Total 500 Balance 500 - Physical Exam Constitutional: no apparent distress, appears nourished, No obese Eyes: PERRL, anicteric sclera, EOMI Ears, Nose, Mouth, Throat: moist mucous membranes, hearing normal, ears appear normal Cardiovascular: No JVD, No tachycardia, No edema Respiratory: no respiratory distress, no rales or rhonchi, reduced air movement Gastrointestinal: normoactive bowel sounds, No tenderness, No ascites Skin: warm, normal color, No mottled Musculoskeletal: joint tenderness, pain with ROM, generalized weakness Neurologic: AAOx3 Psychiatric: interacting appropriately, not anxious, not encephalopathic ICD10 Worksheet Patient Problems: Problems Problem Status Onset Left arm cellulitis Acute
[2018-10-14] MEDS: LORazepam 0.5 MG TAB PO PRN (13:34)
[2018-10-14] MEDS: ceFAZolin 2 GM/DEXTROSE 100 ML IV SCH ×2 (13:34→23:42)
[2018-10-14] MEDS: ACETAMINOPHEN 325 MG TAB PO PRN (18:52)
[2018-10-14] MEDS: AMITRIPTYLINE HCL 25 MG TAB PO SCH (22:20)
[2018-10-15] MEDS: ceFAZolin 2 GM/DEXTROSE 100 ML IV SCH ×3 (05:42→22:50)
[2018-10-15] MEDS: oxyCODONE IR 5 MG TAB PO PRN ×2 (07:57→22:48)
[2018-10-15] MEDS: ONDANSETRON DISINTEGRATING 4 MG TAB PO PRN (07:57)
[2018-10-15] MEDS: GABAPENTIN 400 MG CAP PO SCH ×3 (07:58→22:48)
--- NOTE | 2018-10-15 09:18 | PCMIDPN ---
Assessment/Plan: 1. Left elbow septic olecranon bursitis/forearm cellulitis secondary to group a strep: Much, much better this morning compared to yesterday. Forearm erythema practically gone, and drainage from the elbow has significantly diminished. Gave patient option of going home today on Augmentin, verses going home tomorrow , and he prefers tomorrow which is fine. Continue cefazolin IV while he is in- house, and change to oral Augmentin 875 p.o. Twice daily for 4 more days. Small incision over olecranon bursa is starting to close today, and emphasized the importance to the patient of making sure this heals. Have also asked him to reconnect with Abdirahman Peguero next week. He does not necessarily need to follow up with us. Given that the wound is closing, I do not feel he needs wound Care Clinic, either. 2. Miscellaneous: Hepatitis a total antibody should be run in the morning; if not immune needs 1st vaccine prior to discharge. This was also conveyed to him today. He declines a flu vaccine as per my note yesterday, and states he is up-to-date on Tdap. Will also try to get patient a new shirt (have spoken with social work), as he states he bled through all of the clothes he had previously. 3. Transaminitis: Talked to the patient about this today, and gave him a printout of his lab results to take to [facility]. Needs screening for hepatitis B and C moving forward. This could also be related to alcoholic hepatitis, as the patient imbibes quite a bit of alcohol. Counseled him to stop that. Over 25 min spent with this patient today. 10/15/18 09:19 Subjective: Arm is much less tender and much less swollen today. Erythema along his forearm is practically gone. Long conversation with patient today about unexplained transaminitis, and plans moving forward to reconnect with Abdirahman Peguero. Objective: Cefazolin 2 g IV q.8 hours antibiotics day 8 No fevers Vital Signs Temp Pulse Resp BP Pulse Ox 36.3 C 82 14 111/71 96 10/15/18 07:51 10/15/18 07:51 10/15/18 07:51 10/15/18 07:51 10/15/18 07:51 Laboratory Results 10/13/18 05:14 10/15/18 05:30 10/14/18 10/15/18 10/16/18 05:59 05:59 05:59 Intake Total 750 Balance 750 ESR 6 MM/HR (0-15) 10/08/18 04:24 C-Reactive Protein 57.6 mg/L (<10.0) H 10/08/18 04:24 - Physical Exam General Appearance: alert, no apparent distress EENT: No thrush Respiratory: lungs clear Extremities: other (Left arm: Scant drainage from small incision over bursa. Forearm erythema is practically gone. Swelling is much better today as well. No fluctuance around the bursa.) ICD10 Worksheet Patient Problems: Problems Problem Status Onset Left arm cellulitis Acute
--- NOTE | 2018-10-15 12:06 | HOSPPROG ---
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 *left arm elbow area cellulitis -after fall on ice -Cefazolin restarted, D/W Dr Perez -Bactrim added , did not tolerate -cont cefazolin, change to augmentin in am -group A Strep *left elbow wound -xray shows no osteo *alcohol dependence -CIWA DC -no s/sx of withdrawal -prn Librium *elevated LFT -hep A pending -needs outpatient follow up *hyponatremia -resolved *Nicotine dependence -declined patch, cessation recommended *Hyperkalemia -related to bactrim dose -DC bactrim -follow labs *Cannibis use *anemia -mild *homelessness -will ask CM to arrange a bed at the care home * Plan: slow improvement follow in hospital cont IV abx change to PO abx in am recheck potassium in am Subjective: Feeling better today. Less pain and tenderness. Objective: Vital Signs Temp Pulse Resp BP Pulse Ox 36.3 C 82 14 111/71 96 10/15/18 07:51 10/15/18 07:51 10/15/18 07:51 10/15/18 07:51 10/15/18 07:51 Laboratory Results 10/13/18 05:14 10/15/18 05:30 10/14/18 10/15/18 10/16/18 05:59 05:59 05:59 Intake Total 750 Balance 750 - Physical Exam Constitutional: no apparent distress, appears nourished, not in pain Eyes: PERRL, anicteric sclera, EOMI Ears, Nose, Mouth, Throat: moist mucous membranes, hearing normal, ears appear normal Cardiovascular: regular rate and rhythym, No JVD, No edema Respiratory: no respiratory distress, no rales or rhonchi, reduced air movement Gastrointestinal: normoactive bowel sounds, No tenderness, No ascites Skin: warm, abrasion, erythema, No mottled Musculoskeletal: full muscle strength, joint tenderness, pain with ROM Neurologic: AAOx3 Psychiatric: interacting appropriately, not anxious, not encephalopathic ICD10 Worksheet Patient Problems: Problems Problem Status Onset Left arm cellulitis Acute
[2018-10-15] MEDS: LORazepam 0.5 MG TAB PO PRN (13:54)
--- NOTE | 2018-10-15 15:44 | ASMTCMCOM ---
CM Note CM Note Notes: CM met with patient, he states he understands the plan is to discharge tomorrow and will take a long term bed placement tomorrow. We discussed [facility] service, he states he doesn't think he is connected to [facility] and has been having a difficult time getting around. CM completed online Medical Certificate of Transportation, CM explained process and patient will call [facility] (gave ) to confirm they received the form. Patient to call [facility] tomorrow to schedule a follow up appointment. Patient states he is interested in connecting to mental health support and will attempt to connect to [facility], CM encouraged patient to ask about connecting to Mental Health through [facility] as well. Patient is in need of a large shirt and pants. CM to look and see if there are any options in the clothing closet for him. CM to follow. D/C Plan: [facility] bed Date Signed: 10/15/2018 03:43 PM Electronically Signed By:Nidhi Weaver
[2018-10-15] MEDS: ACETAMINOPHEN 325 MG TAB PO PRN (18:23)
[2018-10-15] MEDS: AMITRIPTYLINE HCL 25 MG TAB PO SCH (22:48)
[2018-10-16] MEDS: AMOXICILLIN/CLAVULANATE POT 875/125 MG TAB PO SCH ×2 (05:33→07:57)
[2018-10-16 06:52] LABS: HEPATITIS A ANTIBODY TOTAL NEGATIVE (NEGATIVE)
[2018-10-16 07:43] VITALS: BP 110/86
[2018-10-16] MEDS: GABAPENTIN 400 MG CAP PO SCH (07:58)
[2018-10-16] MEDS: oxyCODONE IR 5 MG TAB PO PRN (08:02)
[2018-10-16] MEDS ORDERED: HEPATITIS A VIRUS VACCINE 1,440 UNIT/ML SYRINGE IM ONE (08:50)
--- NOTE | 2018-10-16 08:53 | PCMIDPN ---
Assessment/Plan: Assessment: 38-year-old man with acute purulent cellulitis of the left elbow after a fall. Erythema and fluctuance area have resolved. 1. Hyperkalemia, mild; Bactrim side effect; resolved with cessation of Bactrim 2. Left elbow cellulitis with underlying abscess, acute; no evidence for septic arthritis, improved 3. Left elbow laceration secondary to fall; healing 4. Alcohol abuse 5. Thrombocytosis, likely secondary to inflammatory response related to cellulitis and abscess Plan: 1. Finish planned Augmentin x4 more days 2. Follow-up in the ID clinic or with clinica 3. Hepatitis a vaccine x1 today followed by a 2nd dose in 4 weeks 4. Discussed in detail potential side effects of Augmentin including hyperkalemia, increased creatinine, antibiotic associated diarrhea, and C diff colitis Ladarius Hsieh MD Infectious Diseases 10/16/18 08:54 10/16/18 08:56 Subjective: No fever or chills. Denies diarrhea, nausea, rash. Appetite normal. Ambulating without difficulty. No new concerns today. Left elbow feels near-normal. Objective: Vital Signs Temp Pulse Resp BP Pulse Ox 36.6 C 72 16 110/86 H 96 10/16/18 07:41 10/16/18 07:41 10/16/18 07:41 10/16/18 07:41 10/16/18 07:41 Laboratory Results 10/13/18 05:14 10/16/18 04:49 10/15/18 10/16/18 10/17/18 05:59 05:59 05:59 Intake Total 750 Balance 750 ESR 6 MM/HR (0-15) 10/08/18 04:24 C-Reactive Protein 57.6 mg/L (<10.0) H 10/08/18 04:24 Laboratory Tests 10/12/18 10/13/18 10/14/18 05:23 05:14 13:30 WBC 9.87 H 7.95 Hgb 13.4 L 14.2 Plt Count 450 H 465 H Sodium Potassium Hepatitis A Ab Total NEGATIVE 10/15/18 10/16/18 05:30 04:49 WBC Hgb Plt Count Sodium 136 137 Potassium 5.6 H 4.6 Hepatitis A Ab Total - Physical Exam General Appearance: alert, no apparent distress, non-toxic EENT: No scleral icterus Extremities: other (Dressing taken down over left elbow, completely resolved erythema, slight swelling in fluctuance around the healing laceration, fluctuance that was previously present or distally has resolved, he has desquamation over the distal part of the left elbow) Neuro/Psych: alert, normal mood/affect, oriented x 3, No confused ICD10 Worksheet Patient Problems: Problems Problem Status Onset Left arm cellulitis Acute
--- NOTE | 2018-10-16 08:54 | HOSPPROG ---
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 Evaluated patient w Dr Hsieh this morning *left arm elbow area cellulitis -after fall on ice -Cefazolin restarted -dc on augmentin -cont cefazolin, change to augmentin in am -group A Strep *left elbow wound -xray shows no osteo *alcohol dependence -CIWA DC -no s/sx of withdrawal -prn Librium *elevated LFT *hyponatremia -resolved *Nicotine dependence -declined patch, cessation recommended *Hyperkalemia -related to bactrim dose -DC bactrim -follow labs *Cannibis use *anemia -mild *homelessness -will ask CM to [facility] bed [facility] *Plan: CM to get him clothes, Hepatitis A shot prior to dc, Augmentin from [facility] Subjective: Mike is feeling fine this morning, no coomplaints. Objective: Vital Signs Temp Pulse Resp BP Pulse Ox 36.6 C 72 16 110/86 H 96 10/16/18 07:41 10/16/18 07:41 10/16/18 07:41 10/16/18 07:41 10/16/18 07:41 Laboratory Results 10/13/18 05:14 10/16/18 04:49 10/15/18 10/16/18 10/17/18 05:59 05:59 05:59 Intake Total 750 Balance 750 - Physical Exam Constitutional: no apparent distress, appears nourished, not in pain Eyes: PERRL Ears, Nose, Mouth, Throat: hearing normal Respiratory: no respiratory distress Skin: other (left elbow area with no further erythema) Musculoskeletal: full muscle strength Neurologic: AAOx3 Psychiatric: interacting appropriately ICD10 Worksheet Patient Problems: Problems Problem Status Onset Left arm cellulitis Acute
--- NOTE | 2018-10-16 09:32 | ASMTLACE ---
[facility] Length of stay for Answers: 7-13 days current admission Acuity / Level of Answers: Yes Care: Did the patient have an inpatient admission? Comorbidities - select Answers: Other Notes: Hx of osteomyelitis all that apply # of Emergency department Answers: 1-2 visits in the last 6 months Social determinants Answers: History of substance abuse (ETOH, street drugs, prescription drugs, etc.) Score: 13 Date Signed: 10/16/2018 09:31 AM Electronically Signed By:BERTA Sellers
--- NOTE | 2018-10-16 09:43 | ASMTDCNOTE ---
Case Management Discharge Discharge Order Complete? Answers: Yes Patient to Obtain Answers: Independently Medications Transportation Arranged Answers: Bus Tokens EMTALA Complete Answers: No Case Management Transport Answers: No Form Complete Faxed Final Orders Answers: No Agency/Facility Transfer Answers: No Report Printed & Faxed to Receiving Agency Family Notified Answers: No Discharge Comments Notes: Pts case discussed w/ Shannon Keller NP and ANJELICA Mahoney. Pt is being d/c'd today. CM reserved a skilled nursing bed with [facility], provided pt w/ clothes and a bus pass. Referral made to [facility]. No other needs at this time. CM available for changes. Plan: Independent Date Signed: 10/16/2018 09:42 AM Electronically Signed By:BERTA Sellers
--- NOTE | 2018-10-16 10:01 | GDS ---
[f rep st] DISCHARGE SUMMARY DISCHARGE DIAGNOSES: 1. Left arm elbow cellulitis. 2. Alcohol dependence. 3. Elevated liver enzymes. 4. Hyponatremia. 5. Nicotine dependence. 6. Hyperkalemia. 7. Cannabis use. 8. Anemia. 9. Homelessness. CONSULTATION: Dr. Henry Hsieh with Infectious Disease. HISTORY OF PRESENT ILLNESS: Briefly, the patient is a 38-year-old gentleman with a past medical history significant for alcohol dependence. He has a recent history of osteomyelitis in his left great toe that required amputation. He has had multiple injuries related to skateboarding. He recently sustained a fall landing on his left elbow lacerating it. He was seen and evaluated by Orthopedics and recommendation with dressing changes and close monitoring. In addition, he was seen and evaluated by the Infectious Disease team. He was initially treated with Unasyn, Bactrim was added for MRSA coverage. During his stay he developed hyperkalemia secondary to Bactrim. This was discontinued. He will be discharged today on Augmentin. Recommendation is for him to follow up with Infectious Disease. He will get a hepatitis A shot today and will need one more in 4 weeks. HOSPITAL COURSE PER PROBLEM: 1. Left arm elbow cellulitis. He is doing markedly better. It is almost completely resolved with a small scab. 2. Alcohol dependence. He has had no signs or symptoms of withdrawal at discharge. Recommending abstinence with all alcohol use. 3. Elevated liver enzymes. This is likely secondary to his alcohol use. 4. Hyponatremia, resolved. 5. Nicotine dependence. He had a patch in place. 6. Hyperkalemia. This resolved. This was due to Bactrim. 7. Cannabis use. 8. Anemia, resolved. 9. Homelessness. He will go to the alf this evening. DISCHARGE CONDITION: Stable. VITAL SIGNS: Blood pressure is 110/86, heart rate is 72, respiratory rate is 16 , O2 sats on room air 96%, temperature is 36.6 Celsius. MEDICATIONS AT DISCHARGE: Please see the EMR. DISCHARGE INSTRUCTIONS: 1. To follow up with Orthopedics, they have written out in detail what they would like him to do. 2. Follow up with Dr. Ladarius Hsieh in 2-4 weeks. 3. Get his 2nd hepatitis A shot in 4 weeks. Greater than 30 minutes discharging and coordinating the patient's care. /[id number]/MODL MTDD
== END 2018-10-16 10:15 | disposition home or self-care (01) | DRG 383 ==
LOC: EDUNIT# → F3N 23:54 → F3E 10-11 13:36
PROVIDERS: ADMIT Family Medicine; ATTEND Family Medicine
DX: L03.114 Cellulitis of left upper limb (principal); E87.1 Hypo-osmolality and hyponatremia; E87.5 Hyperkalemia; D64.9 Anemia, unspecified; S51.012A Laceration without foreign body of left elbow, initial encounter; B95.0 Streptococcus, group A, as the cause of diseases classified elsewhere; W19.XXXA Unspecified fall, initial encounter; M70.22 Olecranon bursitis, left elbow; T37.0X5A Adverse effect of sulfonamides, initial encounter; E86.9 Volume depletion, unspecified; F10.20 Alcohol dependence, uncomplicated; F17.210 Nicotine dependence, cigarettes, uncomplicated; F12.90 Cannabis use, unspecified, uncomplicated; Z59.0 Homelessness; Z89.412 Acquired absence of left great toe; Z80.0 Family history of malignant neoplasm of digestive organs; Z80.52 Family history of malignant neoplasm of bladder
CPT/HCPCS: 86708-90; 96365; J0295; J0690

== ENCOUNTER 2018-10-26 01:07 | Emergency (ER) | payer MEDICAID ==
[2018-10-26 01:13] VITALS: BP 145/91
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
== END 2018-10-26 01:18 ==
DX: M79.671 Pain in right foot (principal); M79.672 Pain in left foot; G89.29 Other chronic pain; F17.200 Nicotine dependence, unspecified, uncomplicated; F10.99 Alcohol use, unspecified with unspecified alcohol-induced disorder; Z59.0 Homelessness

== ENCOUNTER 2018-11-01 15:13 | Emergency (ER) | payer MEDICAID ==
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
[2018-11-01] MEDS ORDERED: NS 1,000 ML IV ONE ×2 (19:41)
[2018-11-01] MEDS ORDERED: CHLORDIAZEPOXIDE 25MG PREPK#6 BTL TAKEHOME ONE (22:23)
[2018-11-01] MEDS ORDERED: chlordiazePOXIDE 25 MG CAP ONE (22:30)
[2018-11-01] MEDS ORDERED: chlordiazePOXIDE 25 MG CAP PO ONE (22:30)
[2018-11-01 22:36] VITALS: BP 97/67
== END 2018-11-01 23:23 | disposition home or self-care (01) ==
LOC: EDUNIT#
DX: T68.XXXA Hypothermia, initial encounter (principal); F10.129 Alcohol abuse with intoxication, unspecified; E86.9 Volume depletion, unspecified; Z59.0 Homelessness; Z89.412 Acquired absence of left great toe

== ENCOUNTER 2018-11-11 22:45 | Inpatient (IN) | payer MEDICAID ==
--- NOTE | 2018-11-12 04:20 | EDPHY ---
H & P Stated Complaint: L foot frostbite Time Seen by Provider: 11/12/18 04:19 HPI/ROS: HPI CHIEF COMPLAINT: Worsening left foot pain. HISTORY OF PRESENT ILLNESS: Patient is a 38-year-old male, homeless, presents to the emergency room with left worsening foot pain. Patient states for the past 48 hr if it increasing pain and drainage from his 2nd and 3rd toe and swelling and redness. Unsure about fever. However he states providing him to function walk. The pain has gotten worse. Patient states he initially got frostbite to his toes. Past Medical History: Significant medical history for cellulitis, alcohol dependency, hyponatremia, left elbow cellulitis Past Surgical History: Previous left great toe amputation. Social History: Smokes marijuana. Homeless. Family History: Noncontributory ROS REVIEW OF SYSTEMS: 10 Systems were reviewed and negative with the exception of the elements mentioned in the history of present illness. Exam Constitutional triage nursing summary reviewed, vital signs reviewed, awake/ alert. Eyes normal conjunctivae and sclera, EOMI, PERRLA. HENT normal inspection, atraumatic, moist mucus membranes, no epistaxis, neck supple/ no meningismus, no raccoon eyes. Respiratory clear to auscultation bilaterally, normal breath sounds, no respiratory distress, no wheezing. Cardiovascular rate normal, regular rhythm, no murmur, no edema, distal pulses normal. Gastrointestinal soft, non-tender, no rebound, no guarding, normal bowel sounds, no distension, no pulsatile mass. Genitourinary no CVA tenderness. Musculoskeletal Left lower extremity: Mild redness over the dorsum of the foot as well as the anterior tibia, his 1st great toe is previously amputated, 2nd and 3rd toe her swollen erythematous, appear infected grossly, and pus. Blackness to the distal aspect of the 3rd toe. no midline vertebral tenderness, full range of motion, no calf swelling, no tenderness of extremities, no meningismus, good pulses, neurovascularly intact. Skin pink, warm, & dry, no rash, skin atraumatic. Neurologic awake, alert and oriented x 3, AAOx3, moves all 4 extremities equally, motor intact, sensory intact, CN II-XII intact, normal cerebellar, normal vision, normal speech. Psychiatric normal mood/affect. Heme/Lymph/Immune no lymphadenopathy. Differential Diagnosis: Includes but is not limited to in a particular order frostbite of the toes, soft tissue infection, cellulitis, osteomyelitis, abscess , necrotizing fasciitis. Medical Decision Making: Plan for this patient IV establishment, inflammatory markers, blood cultures, IV vancomycin IV Zosyn, x-ray left foot, most likely needs admission to the hospital for surgical treatment and antibiotics. Re-evaluation: X-ray left foot review shows bony destruction of the 2nd phalanx. Plan for patient be admitted the hospital for IV antibiotics, further evaluation of his left foot cellulitis and infected toes. Concern for osteomyelitis. Will consult the hospitalist service for admission Serum alcohol level 282. Hospitalist service consult Dr. Ferguson, Agrees to admit. Source: Patient - Personal History Current Tetanus Diphtheria and Acellular Pertussis (TDAP): Yes - Medical/Surgical History Hx Asthma: No Hx Chronic Respiratory Disease: No Hx Diabetes: No Hx Cardiac Disease: No Hx Renal Disease: No Hx Cirrhosis: No Hx Alcoholism: Yes Hx HIV/AIDS: No Hx Splenectomy or Spleen Trauma: No Other PMH: neuropathy,frostbite, - Social History Smoking Status: Current every day smoker Constitutional: Initial Vital Signs Temperature (C) 36.4 C 11/11/18 23:22 Heart Rate 84 11/11/18 23:22 Respiratory Rate 16 11/11/18 23:22 Blood Pressure 145/74 H 11/11/18 23:22 O2 Sat (%) 92 11/11/18 23:22 O2 Delivery Mode Room Air Allergies/Adverse Reactions: No Known Allergies Allergy (Unverified 11/11/18 23:22) Home Medications: Medication Instructions Recorded Amitriptyline HCl [Elavil] 25 mg PO TID 10/08/18 Gabapentin [Gabapentin 800 mg] 800 mg PO TID 10/08/18 Herbals/Supplements -Info Only 1 ea PO DAILY 10/08/18 Melatonin [Melatonin 3 MG (*)] 3 mg PO HS PRN 10/08/18 Multivitamins [Multivitamin (*)] 1 each PO DAILY 10/08/18 [place]-3 Fatty Acids [Fish Oil 1000 1,000 mg PO DAILY 10/08/18 mg (*)] hydrOXYzine HCL [Vistaril 50MG 50 mg PO DAILY 10/08/18 (RX)] hydrOXYzine HCL [Vistaril 50MG 50 mg PO TID PRN 10/08/18 (RX)] Medical Decision Making - Data Points Laboratory Results: Laboratory Results 11/12/18 04:38 11/12/18 04:38 Medications Given: Acetaminophen (Tylenol) 650 mg PO Q4HRS PRN PRN Reason: Pain, Mild/Fever, Can Take PO Stop: 05/11/19 06:01 Last Admin: 11/12/18 09:50 Dose: 650 mg Enoxaparin Sodium (Lovenox) 40 mg SC DAILY [facility] Stop: 05/11/19 08:59 Last Admin: 11/12/18 10:10 Dose: Not Given Ethyl Alcohol (Vodka) 50 ml PO TID [facility] Stop: 05/11/19 12:14 Last Admin: 11/12/18 22:11 Dose: 50 ml Folic Acid (Folic Acid) 1 mg PO DAILY [facility] Stop: 05/11/19 08:59 Last Admin: 11/12/18 09:50 Dose: 1 mg Vancomycin HCl 1.25 gm/ Sodium (Chloride) 250 mls @ 166.667 mls/hr IV Q12H [facility] Stop: 12/12/18 16:59 Last Admin: 11/12/18 17:03 Dose: 250 mls Piperacillin/Tazobactam/Dextrose (Zosyn 3.375 Gm (Premix)) 50 mls @ 100 mls/hr IV Q6HRS [facility] PRN Reason: Protocol Stop: 12/12/18 14:59 Last Admin: 11/13/18 00:49 Dose: 50 mls Multivitamins (Tab-A-Ree) 1 each PO DAILY [facility] Stop: 05/11/19 08:59 Last Admin: 11/12/18 09:50 Dose: 1 each Oxycodone HCl (Oxycodone Ir) 5 - 10 mg PO Q4HRS PRN; Protocol PRN Reason: 1 tab for mod or 2 severe pain Stop: 11/22/18 11:48 Last Admin: 11/13/18 00:56 Dose: 10 mg Discontinued Medications Sodium Chloride (Ns) 1,000 mls @ 0 mls/hr IV EDNOW ONE; Wide Open PRN Reason: Protocol Stop: 11/12/18 04:27 Last Admin: 11/12/18 05:40 Dose: 1,000 mls Vancomycin/Sodium Chloride (Vancomycin 1 Gm (Premix)) 250 mls @ 250 mls/hr IV EDNOW ONE PRN Reason: Protocol Stop: 11/12/18 05:26 Last Admin: 11/12/18 07:17 Dose: 250 mls Piperacillin/Tazobactam/Dextrose (Zosyn (Premix)) 100 mls @ 200 mls/hr IV EDNOW ONE PRN Reason: Protocol Stop: 11/12/18 04:56 Last Admin: 11/12/18 08:27 Dose: 100 mls Lorazepam (Ativan Injection) 0 mg IVP Q1H PRN; Protocol PRN Reason: Alcohol Withdrawal w/IV access Stop: 05/11/19 06:04 Last Admin: 11/12/18 10:16 Dose: 2 mg Lorazepam (Ativan) 1 mg PO ONCE ONE Stop: 11/12/18 15:03 Last Admin: 11/12/18 17:04 Dose: 1 mg Departure - Departure Disposition: [facility] Clinical Impression: Cellulitis of foot Osteomyelitis Qualifiers: Osteomyelitis type: unspecified type Osteomyelitis location: foot Laterality: left Qualified Code(s): M86.9 - Osteomyelitis, unspecified Condition: Serious
[2018-11-12] MEDS ORDERED: NS 1,000 ML IV ONE (04:26)
[2018-11-12] MEDS ORDERED: VANCOMYCIN HCL/NORMAL SALINE 250 ML IV ONE (04:27)
[2018-11-12] MEDS ORDERED: PIPERACILLIN/TAZO 4.5 GM/DEX 100 ML IV ONE (04:27)
[2018-11-12 04:50] LABS: PLATELET COUNT 310 10^3/uL (150-400)
[2018-11-12 04:59] LABS: INR 1.04 (0.83-1.16); PROTIME(PATIENT) 13.2 SEC (12.0-15.0)
[2018-11-12] MEDS ORDERED: ACETAMINOPHEN 325 MG TAB PO PRN (06:02)
[2018-11-12] MEDS ORDERED: ONDANSETRON 4 MG/2 ML VIAL IVP PRN (06:02)
[2018-11-12] MEDS ORDERED: ONDANSETRON DISINTEGRATING 4 MG TAB PO PRN (06:02)
[2018-11-12] MEDS ORDERED: LORazepam 2 MG/ML INJ IVP PRN (06:05)
[2018-11-12] MEDS ORDERED: FLUMAZENIL 0.5 MG/5 ML MDV IVP PRN (06:05)
--- NOTE | 2018-11-12 06:54 | PDGENHP ---
History and Physical - Chief Complaint L foot pain - History of Present Illness 38 yo homeless male w/ ETOH use d/o presents with L foot pain. The patient has a hx of L great toe OM s/p osteomyelitis. Today he presents with 3 days of L 2nd and 3rd toe pain, redness, and purulent discharge. He has also had night sweats the last 2 nights. He is not displaying evidence of sepsis physiology but has markedly elevated CRP. XR demonstrates likely OM. The patient is being admitted for management of this. He drinks heavily on a daily basis, typically 1-2 pints daily. He tells me his last drink was about 6 hours prior to admission. He is not displaying signs of withdrawal at this point. Case discussed with ED physician Dr. Saini; records reviewed and summarized above. History Information - Allergies/Home Medication List Allergies/Adverse Reactions: No Known Allergies Allergy (Unverified 11/11/18 23:22) Home Medications: Amitriptyline HCl [Elavil] 25 mg PO HS 10/08/18 [Last Taken 09/08/18] Gabapentin [Gabapentin 800 mg] 800 mg PO TID 10/08/18 [Last Taken 09/08/18] Herbals/Supplements -Info Only 1 ea PO DAILY 10/08/18 [Last Taken 09/08/18] Melatonin [Melatonin 3 MG (*)] 3 mg PO HS PRN 10/08/18 [Last Taken 09/08/18] Multivitamins [Multivitamin (*)] 1 each PO DAILY 10/08/18 [Last Taken 09/08/18] [place]-3 Fatty Acids [Fish Oil 1000 mg (*)] 1,000 mg PO DAILY 10/08/18 [Last Taken 09/08/18] hydrOXYzine HCL [Vistaril 50MG (RX)] 50 mg PO DAILY 10/08/18 [Last Taken ] hydrOXYzine HCL [Vistaril 50MG (RX)] 50 mg PO TID PRN 10/08/18 [Last Taken 09/08] I have personally reviewed and updated: family history, medical history - Past Medical History Additional medical history: History of osteomyelitis in the left great toe status post amputation. Alcohol dependence. Multiple injuries related to skateboarding accident. - Surgical History Additional surgical history: Left great toe amputation. - Family History Additional family history: Grandmother with colon and bladder cancer. Patient reports he has not seen his family in 7 years but does not believe there is any other chronic medical issues. - Social History Smoking Status: Current every day smoker Additional social history: Patient currently residing at a homeless fdc. Cor status-full. Review of Systems Review of Systems: ROS: 10pt was reviewed & negative except for what was stated in HPI & below Physical Exam Physical Exam: Temp Pulse Resp BP Pulse Ox 36.4 C 90 16 89/62 L 94 11/12/18 03:08 11/12/18 06:47 11/12/18 06:47 11/12/18 06:47 11/12/18 06:47 Constitutional: uncomfortable, unkempt Eyes: PERRL, EOMI Ears, Nose, Mouth, Throat: moist mucous membranes, no oral mucosal ulcers Cardiovascular: regular rate and rhythym, no murmur, rub, or gallop Respiratory: no respiratory distress, no rales or rhonchi Gastrointestinal: normoactive bowel sounds, soft, non-tender abdomen Skin: warm, other (2nd, 3rd L toes erythematous w/ purulent drainage) Musculoskeletal: full muscle strength, no joint effusions Neurologic: AAOx3, CN II-XII Intact Psychiatric: interacting appropriately, not anxious Lab Data & Imaging Review 11/12/18 04:38 11/12/18 04:38 WBC 8.21 10^3/uL (3.80-9.50) 11/12/18 04:38 RBC 4.03 10^6/uL (4.40-6.38) L 11/12/18 04:38 Hgb 13.7 g/dL (13.7-17.5) 11/12/18 04:38 Hct 39.6 % (40.0-51.0) L 11/12/18 04:38 MCV 98.3 fL (81.5-99.8) 11/12/18 04:38 MCH 34.0 pg (27.9-34.1) 11/12/18 04:38 MCHC 34.6 g/dL (32.4-36.7) 11/12/18 04:38 RDW 14.1 % (11.5-15.2) 11/12/18 04:38 Plt Count 310 10^3/uL (150-400) 11/12/18 04:38 MPV 8.6 fL (8.7-11.7) L 11/12/18 04:38 Neut % (Auto) 57.8 % (39.3-74.2) 11/12/18 04:38 Lymph % (Auto) 28.5 % (15.0-45.0) 11/12/18 04:38 [place] % (Auto) 9.3 % (4.5-13.0) 11/12/18 04:38 Eos % (Auto) 3.0 % (0.6-7.6) 11/12/18 04:38 Baso % (Auto) 0.7 % (0.3-1.7) 11/12/18 04:38 Nucleat RBC Rel Count 0.0 % (0.0-0.2) 11/12/18 04:38 Absolute Neuts (auto) 4.74 10^3/uL (1.70-6.50) 11/12/18 04:38 Absolute Lymphs (auto) 2.34 10^3/uL (1.00-3.00) 11/12/18 04:38 Absolute Monos (auto) 0.76 10^3/uL (0.30-0.80) 11/12/18 04:38 Absolute Eos (auto) 0.25 10^3/uL (0.03-0.40) 11/12/18 04:38 Absolute Basos (auto) 0.06 10^3/uL (0.02-0.10) 11/12/18 04:38 Absolute Nucleated RBC 0.00 10^3/uL (0-0.01) 11/12/18 04:38 Immature Gran % 0.7 % (0.0-1.1) 11/12/18 04:38 Immature Gran # 0.06 10^3/uL (0.00-0.10) 11/12/18 04:38 ESR 34 MM/HR (0-15) H 11/12/18 04:38 PT 13.2 SEC (12.0-15.0) 11/12/18 04:38 INR 1.04 (0.83-1.16) 11/12/18 04:38 APTT 41.0 SEC (23.0-38.0) H 11/12/18 04:38 VBG Lactic Acid 1.9 mmol/L (0.7-2.1) 11/12/18 04:38 Sodium 145 mEq/L (135-145) 11/12/18 04:38 Potassium 3.8 mEq/L (3.5-5.2) 11/12/18 04:38 Chloride 107 mEq/L (97-110) 11/12/18 04:38 Carbon Dioxide 27 mEq/l (22-31) 11/12/18 04:38 Anion Gap 11 mEq/L (6-14) 11/12/18 04:38 BUN 6 mg/dL (7-23) L 11/12/18 04:38 Creatinine 0.6 mg/dL (0.7-1.3) L 11/12/18 04:38 Estimated GFR > 60 11/12/18 04:38 Glucose 80 mg/dL (70-100) 11/12/18 04:38 Calcium 8.3 mg/dL (8.5-10.4) L 11/12/18 04:38 C-Reactive Protein 87.4 mg/L (<10.0) H 11/12/18 04:38 Ethyl Alcohol 282 mg/dL (0-10) H 11/12/18 04:38 Assessment & Plan Assessment: 38 yo homeless M w/ ETOH use d/o presents with L foot infection, likely OM. Plan: 1. L foot infection - Suspect OM noting appearance of foot XR (personally reviewed/interpreted), although formal read is pending. CRP 87, ESR 34. - Vancomycin IV - Blood cultures pending - ID consult placed - Consider additional imaging if OM questionable - Will likely benefit from surgical consult for I&D 2. ETOH use d/o - Drinks 1-2 pints daily; no signs of ETOH withdrawal yet. - CIWA protocol ordered - Daily MVI, folate, thiamine 3. Homelessness - CM consult placed Diet - Regular Code - Full Ppx - LMWH Dispo - Admit under observation status
[2018-11-12] MEDS: MULTIVITAMINS 1 EACH TAB PO SCH (09:50)
[2018-11-12] MEDS: FOLIC ACID 1 MG TAB PO SCH (09:50)
[2018-11-12] MEDS: ENOXAPARIN 40 MG/0.4 ML SYR SC SCH (10:10)
[2018-11-12] MEDS: VODKA 50 ML BOTTLE PO SCH ×3 (14:39→22:11)
[2018-11-12] MEDS: oxyCODONE IR 5 MG TAB PO PRN ×2 (14:43→20:10)
--- NOTE | 2018-11-12 14:56 | PCMIDPN ---
Assessment/Plan: 1. Left 2nd and 3rd toe skin and soft tissue infection/osteomyelitis with concomitant left lower extremity cellulitis in homeless alcoholic male: Drainage from his toes is extremely foul-smelling, suggesting a mixed infection. Patient is at risk for MRSA given recent hospitalization and chronic homelessness. He states he has a history of MRSA many years ago. For now, will cover broadly with vancomycin and Zosyn, and obtain MRI to further evaluate extent of infection. The patient will need surgical intervention moving forward, and Dr. Desouza will see him after the MRI. Asked patient please keep his left lower extremity elevated as much as he is able to tolerate. 2. Miscellaneous: Patient recently tested HIV negative. He received a 1st vaccination for hepatitis a. Tdap up-to-date. Over 30 mins spent with pt today. 11/12/18 14:59 Subjective: Patient is well known to me from previous admission for group a strep septic olecranon bursitis. Patient tells me that it has been extremely cold outside, and his left foot has become increasingly more painful. He has mal-fitting shoes, and noticed redness in his 2nd and 3rd toes for the past several days, and new redness in his left lower extremity over the past 48 hr. He denies fevers or shaking chills. He says that it is difficult for him to take a shower , and he has been doing his best to keep his wounds clean. He agrees that the drainage from his toes is extremely foul-smelling. Objective: Vancomycin 1.25 g IV q.12 hours Status post Zosyn 4.5 g x1 in the emergency room No fevers Vital Signs Temp Pulse Resp BP Pulse Ox 36.6 C 90 16 108/62 92 11/12/18 11:50 11/12/18 11:50 11/12/18 11:50 11/12/18 11:50 11/12/18 11:50 11/11/18 11/12/18 11/13/18 04:59 05:59 05:59 Intake Total 800 Balance 800 ESR 34 MM/HR (0-15) H 11/12/18 04:38 C-Reactive Protein 87.4 mg/L (<10.0) H 11/12/18 04:38 No new microbiologic data Blood cultures x2 no growth so far Previous cultures from left elbow showed group a strep - Physical Exam General Appearance: other (Disheveled, nontoxic) EENT: No scleral icterus, No thrush Respiratory: lungs clear Cardiac/Chest: regular rate, rhythm, No systolic murmur Extremities: other (Left great toe is missing from previous amputation. The left lower extremity and foot are swollen compared to the right. The 2nd and 3rd toes are extremely swollen, with foul-smelling purulence draining from the tips of the toes. The toes are hammertoes. Both toes are erythematous. There is some mild erythema on the dorsum of the foot that skips the ankle, then significant erythema is noted in his left lower extremity pretibial area that is circumferential. No vesicles or hypesthesia. No significant tenderness out of proportion to exam findings.) Skin: No rash ICD10 Worksheet Patient Problems: Problems Problem Status Onset Cellulitis of foot Acute Left arm cellulitis Acute
[2018-11-12] MEDS ORDERED: LORazepam 1 MG TAB PO ONE (15:02)
[2018-11-12] MEDS: PIPERACILLIN/TAZO 3.375 GM/DEX 50 ML IV SCH ×2 (15:25→20:41)
--- NOTE | 2018-11-12 16:01 | HOSPPROG ---
Hospitalist Progress Note Assessment/Plan: Pt admitted this am. Chart reviewed. He is admitted with left foot osteomyelitis with risk factors for resistant organisms. Plan is to continue broad spectrum atbx with Vanc and Zosyn. MRI today to further evaluate for osteo. Surgery will consult as he will likely need surgical intervention. VSS , afebrile, no sepsis. He has h/o etoh abuse and does not wish to stop drinking. Will d/c CIWA and give vodka TID to prevent w/d. CM following given homelessness. Objective: Vital Signs Temp Pulse Resp BP Pulse Ox 36.6 C 85 16 120/79 92 11/12/18 15:35 11/12/18 15:35 11/12/18 15:35 11/12/18 15:35 11/12/18 15:35 11/11/18 11/12/18 11/13/18 04:59 05:59 05:59 Intake Total 800 Balance 800 PT 13.2 SEC (12.0-15.0) 11/12/18 04:38 INR 1.04 (0.83-1.16) 11/12/18 04:38 ICD10 Worksheet Patient Problems: Problems Problem Status Onset Cellulitis of foot Acute Left arm cellulitis Acute
[2018-11-12] MEDS: VANCOMYCIN 1.25 GM in NS 250 ML IV SCH (17:03)
[2018-11-12] MEDS ORDERED: GADOBUTROL 10 ML VIAL IVP ONE (17:06)
--- NOTE | 2018-11-12 23:27 | GCON ---
[f rep st] CONSULTATION DATE OF CONSULTATION: 11/12/2018 CHIEF COMPLAINT: Osteomyelitis of left 2nd and 3rd toes. HISTORY OF PRESENT ILLNESS: The patient is a 38-year-old man who initially had been camping with a female 3 years ago and he took off his wool socks to give to the pail tester. His feet became very sweaty. He had unzipped the bottom of his sleeping bag, and the temperature that night had plummeted to 17 which was unexpected. He suffered some frostbite. He initially thought he would recover from this as he had in the past. However, he has since then developed neuropathy in the area, and he has also had an amputation of the great toe. More recently he has had pain on the 2nd and 3rd toes with associated night sweats. He has no history of diabetes. PAST MEDICAL HISTORY: He drinks 1-2 pints daily. PAST SURGICAL HISTORY: Left great toe amputation. SOCIAL HISTORY: Every day smoker. He lives in a homeless nursing home. He drinks on a daily basis. FAMILY HISTORY: Significant for cancer. REVIEW OF SYSTEMS: No chest pain or shortness of breath. PHYSICAL EXAMINATION: VITAL SIGNS: 36.6, 85, 120/79, 16, 92% room air. GENERAL: Pleasant, sitting up in bed, well-groomed, cooperative with exam. HEENT: Normocephalic, atraumatic. No gross hearing deficits. Mucous membranes moist. Pupils equal and round. No scleral icterus. LUNGS: Clear to auscultation bilaterally. No increased work of breathing. CARDIAC: Regular rate. No peripheral edema. MUSCULOSKELETAL: Normal strength. SKIN: He has obvious osteomyelitis of the left 2nd and 3rd toes. They are markedly edematous. There is no ascending infection. NEURO: Decreased sensation. IMPRESSION/PLAN: 38-year-old with osteomyelitis of the 2nd and 3rd toes as evidenced on plain film as well as clinically. He is going for MRI. We discussed that IV antibiotics do not work in this case. I recommend amputation. He has had this for quite some time. I do not feel he has to make an emergent decision in terms of going to the operating room tonight. Continue antibiotics. /[id number]/MODL MTDD
[2018-11-13] MEDS: PIPERACILLIN/TAZO 3.375 GM/DEX 50 ML IV SCH ×3 (00:49→12:41)
[2018-11-13] MEDS: oxyCODONE IR 5 MG TAB PO PRN ×4 (00:56→20:43)
[2018-11-13] MEDS: VANCOMYCIN 1.25 GM in NS 250 ML IV SCH ×3 (04:51→19:03)
[2018-11-13] MEDS: FOLIC ACID 1 MG TAB PO SCH (09:03)
[2018-11-13] MEDS: MULTIVITAMINS 1 EACH TAB PO SCH (09:03)
[2018-11-13] MEDS: ENOXAPARIN 40 MG/0.4 ML SYR SC SCH (09:04)
[2018-11-13] MEDS: VODKA 50 ML BOTTLE PO SCH ×3 (09:04→21:41)
--- NOTE | 2018-11-13 09:49 | HOSPPROG ---
Hospitalist Progress Note Assessment/Plan: 38 yo homeless M w/ ETOH abuse d/o presents with L foot infection, likely OM. Plan: Osteomyelitis of 2nd MT and 3rd MT and 3rd toe - MRI reviewed. He is s/p great toe amputation. - cont Zosyn plus Vanc per ID - surgery following, will require amputation ETOH abuse - Drinks 1-2 pints daily, does not plan to quit - vodka TID - Daily MVI, folate, thiamine Homelessness - CM consult placed, will need assistance at d/c, ?respite bed Diet - Regular Code - Full Ppx - LMWH Dispo - Change to inpt for ongoing management of OM and probable amputation Subjective: Pt doing ok. Pain controlled. No fevers/chills. Taking po well. He is worried about his discharge needs if he gets an amputation as he is homeless. Objective: Vital Signs Temp Pulse Resp BP Pulse Ox 36.7 C 68 20 128/75 H 94 11/13/18 07:19 11/13/18 07:19 11/13/18 07:19 11/13/18 07:19 11/13/18 07:19 Microbiology 11/12/18 15:00 Gram Stain - Final Toe - Eswab 11/12/18 11/13/18 11/14/18 05:59 05:59 05:59 Intake Total 2800 Output Total 550 Balance 2250 PT 13.2 SEC (12.0-15.0) 11/12/18 04:38 INR 1.04 (0.83-1.16) 11/12/18 04:38 - Physical Exam Constitutional: no apparent distress Eyes: PERRL Ears, Nose, Mouth, Throat: moist mucous membranes Cardiovascular: regular rate and rhythym Respiratory: no respiratory distress, clear to auscultation Gastrointestinal: normoactive bowel sounds, soft, non-tender abdomen Skin: warm Musculoskeletal: full muscle strength, other (2nd and 3rd toe with ulceration / callous, no purulence) Neurologic: AAOx3 Psychiatric: interacting appropriately ICD10 Worksheet Patient Problems: Problems Problem Status Onset Cellulitis of foot Acute Osteomyelitis Acute Left arm cellulitis Acute
[2018-11-13] MEDS ORDERED: LORazepam 1 MG TAB PO ONE (12:51)
[2018-11-13] MEDS: NICOTINE 14 MG/24 HR PATCH TD SCH (13:11)
--- NOTE | 2018-11-13 15:21 | PDGENHP ---
History & Physical Chief Complaint: L foot pain. History of Present Illness: see admitting and ER H and P. 38 M Homeless. Left Great toe amp less than one year ago at [facility]. Works odd labor jobs. EtOH. 2nd and 3rd toe pain over the last month. Freezing weather has made it worse. Pertinent Past, Social, Family History: NC Relevant Physical Exam: 2nd and 3rd toes look wet and necrotic. minimal tender midfoot. skin looks healthy on plantar and dorsal side of foot. MRI with edema in toes, 2nd/3rd met and middle cuneiform. Xrays with evidence of GT amp and chronic changes in involved metatarsals Cardiorespiratory Assessment: RRR CTAB
--- NOTE | 2018-11-13 15:29 | PCMIDPN ---
Assessment/Plan: Assessment: 38-year-old man with left 2nd and 3rd toe osteomyelitis and cellulitis with osteomyelitis of the 2nd metatarsal extending proximally to involve 3/4 of the bone. No ongoing systemic manifestations of infection. He has been wearing waterproof boots but has been showering at a fpc in his bare feet. Although the shower at a fpc may place him at higher risk for environmental non-fermenting gram negative organisms, Staph and Streptococcal organisms are more likely underlying this infection. 1. 2nd and 3rd left toe chronic osteomyelitis with deep soft tissue infection 2. 2nd metatarsal chronic osteomyelitis with deep soft tissue infection 3. History of left elbow abscess with cellulitis (treated October 2018) 4. Alcohol abuse 5. Chronic homelessness 6. Intolerance to Bactrim with hyperkalemia (October 2018) Plan: 1. Continue vancomycin with goal trough 15-20 2. Stop pip/tazo 3. Start ceftriaxone 2gm daily 4. If no surgical amputation/debridement, will require IV antibiotics for osteomyelitis 5. Reviewed in detail potential side effects of beta-lactam antibiotics to include: allergy, rash, nausea, antibiotic-associated diarrhea, Clostridioides difficile colitis. 6. Reviewed in detail potential side effects of vancomycin to include: allergy, rash, nausea, antibiotic-associated diarrhea, Clostridioides difficile colitis, acute kidney injury. Ladarius Hsieh MD Infectious Diseases 11/13/18 15:53 Subjective: No fever or chills in the past 24-hours. Tolerating oral diet with solids and liquids. No diarrhea, nausea, or other GI symptoms. No rash. Appetite improving. Pain in left second and third toe ongoing. No improvement overall since admission with left foot pain the most prominent symptom(s). Objective: Vital Signs Temp Pulse Resp BP Pulse Ox 36.9 C 76 16 115/72 97 11/13/18 11:44 11/13/18 11:44 11/13/18 11:44 11/13/18 11:44 11/13/18 11:44 Microbiology 11/12/18 15:00 Gram Stain - Final Toe - Eswab 11/12/18 11/13/18 11/14/18 05:59 05:59 05:59 Intake Total 2800 Output Total 550 Balance 2250 ESR 34 MM/HR (0-15) H 11/12/18 04:38 C-Reactive Protein 87.4 mg/L (<10.0) H 11/12/18 04:38 Medications Generic Name Dose Route Start Last Admin Trade Name Freq PRN Reason Stop Dose Admin Piperacillin/Tazobactam/Dextrose 50 mls @ 100 mls/hr 11/12/18 15:00 11/13/18 12:41 Zosyn 3.375 Gm (Premix) IV 12/12/18 14:59 50 mls Q6HRS MEE Protocol Vancomycin HCl 1.25 gm/ Sodium 250 mls @ 166.667 mls/hr 11/12/18 17:00 04:51 Chloride IV 12/12/18 16:59 250 mls Q12H [facility] Microbiology 11/12/18 15:00 Toe - Eswab Gram Stain - Final 11/12/18 04:38 Blood Blood Culture - Preliminary 11/12/18 04:30 Blood Blood Culture - Preliminary Laboratory Tests 11/12/18 11/12/18 11/12/18 04:38 04:38 04:38 WBC 8.21 Hgb 13.7 Plt Count 310 ESR 34 H INR 1.04 Creatinine 0.6 L C-Reactive Protein 87.4 H Ethyl Alcohol 282 H - Physical Exam General Appearance: no apparent distress, thin, non-toxic EENT: No scleral icterus Respiratory: No accessory muscle use Neck: full range of motion, supple Extremities: other (Left great toe amputation site well healed; left 2nd and 3rd toe with circumferential edema, loss of medial from the 2nd left toe, edema extending to the dorsum of the left foot without extension of erythema; 3 cm diameter circular area of erythema the distal mid rasmussen with minimal blanching, no tenderness to palpation, no induration or fluctuance) Skin: No rash Neuro/Psych: alert, oriented x 3, depressed affect, No confused - Time Spent With Patient Time Spent with Patient: greater than 25 minutes Time Spent with Patient: Greater than 25 minutes spent on this patients care, greater than 50% of time spent counseling, educating, and coordinating care regarding the above mentioned plan. ICD10 Worksheet Patient Problems: Problems Problem Status Onset Cellulitis of foot Acute Osteomyelitis Acute Left arm cellulitis Acute
--- NOTE | 2018-11-13 15:31 | SOAPPROG ---
SOAP Progress Note Assessment/Plan: Assessment: Plan: Subjective: see h and P patient has strong desires to keep his foot and ankle. I spoke with foot and ankle team. Limited toe amp, trans metatarsal amp and BKA are all reasonable options. I spoke with Dr Desouza and communicated the ortho perspective Please let us know if you would like us to be involved. Objective: Vital Signs Temp Pulse Resp BP Pulse Ox 36.9 C 76 16 115/72 97 11/13/18 11:44 11/13/18 11:44 11/13/18 11:44 11/13/18 11:44 11/13/18 11:44 Microbiology 11/12/18 15:00 Gram Stain - Final Toe - Eswab 11/12/18 11/13/18 11/14/18 05:59 05:59 05:59 Intake Total 2800 Output Total 550 Balance 2250 PT 13.2 SEC (12.0-15.0) 11/12/18 04:38 INR 1.04 (0.83-1.16) 11/12/18 04:38 ICD10 Worksheet Patient Problems: Problems Problem Status Onset Cellulitis of foot Acute Osteomyelitis Acute Left arm cellulitis Acute
--- NOTE | 2018-11-13 15:46 | ASMTCMCOM ---
CM Note CM Note Notes: Patient admitted with L Foot Osteomyelitis, surgery following - may need amputation. Per RN, patient has concerns about long-term plan if surgery is indicated. Met with patient to discuss concerns. Patient is currently homeless, has been staying with a friend some. He states he has been trying to work, however, the pain in his feet has caused some limitations. CM explained the options including: possible SNF placement under LTC Medicaid or fpc/[facility] follow-up if surgery is not indicated (Patient is currently being followed by [facility]). Patient states he is a [facility] patient and has completed CE in the past. Once medical plan is confirmed, will proceed with disposition plan, either d/c home with community follow-up or attempt to place in SNF. Patient states he would agree to the 30-day Medicaid stay. CM will follow. Plan: TBD Date Signed: 11/13/2018 03:45 PM Electronically Signed By:Tegan Sotelo RN
--- NOTE | 2018-11-13 15:49 | SOAPPROG ---
SOAP Progress Note Assessment/Plan: Assessment/Plan: 38yo M admitted with left foot osteomyelitis. Homelessness. Alcohol abuse. Smoker. MRI shows osteomyelitis of the 2nd and 3rd metatarsals, to the cuneiform. Continue IV antibiotics Discussed amputation options - MRI looks very extensive and only way to fully remove osteo would be below-knee amputation. Patient is very upset with this and desires a 2nd opinion. Will consult with orthopedics Appreciate hospitalist management Dispo: Inpatient for surgical planning and intervention S: Very nervous about needing surgery. Reports that pain is stable, no worsening swelling, fevers or chills. O: Lying in bed, comfortable, no acute distress Respiratory: No increased work of breathing Cardiovascular: Edema of the left toes and foot. No peripheral edema right lower extremity. Palpable left PT and DP pulses MSK: Status post left great toe amputation. Skin: Ulceration of left 2nd and 3rd toes significant edema. Erythema of the left 2nd and 3rd toes, with another patch of erythema of the left rasmussen. Objective: Vital Signs Temp Pulse Resp BP Pulse Ox 36.9 C 76 16 115/72 97 11/13/18 11:44 11/13/18 11:44 11/13/18 11:44 11/13/18 11:44 11/13/18 11:44 Microbiology 11/12/18 15:00 Gram Stain - Final Toe - Eswab 11/12/18 11/13/18 11/14/18 05:59 05:59 05:59 Intake Total 2800 Output Total 550 Balance 2250 PT 13.2 SEC (12.0-15.0) 11/12/18 04:38 INR 1.04 (0.83-1.16) 11/12/18 04:38 ICD10 Worksheet Patient Problems: Problems Problem Status Onset Cellulitis of foot Acute Osteomyelitis Acute Left arm cellulitis Acute
--- NOTE | 2018-11-13 16:18 | PDMN ---
Medical Necessity Medical necessity: MCG M600 Osteomyelitis, 3 days: 38 yo w/ L foot infection, suspicious for OM, initially OBS for workup tx but pt requires additional MN for confirmed dx of osteomyelitis of 2nd MT and 3rd MT and 3rd toe after dx testing. Surgery and ID consults, amputation pending. Cont IV antibx. Change to IP status 11/13/18@1602 per MD order. Hx homeless, etoh abuse
[2018-11-13] MEDS: GABAPENTIN 400 MG CAP PO SCH (21:41)
[2018-11-13] MEDS: AMITRIPTYLINE HCL 25 MG TAB PO SCH (21:41)
[2018-11-14] MEDS: oxyCODONE IR 5 MG TAB PO PRN ×3 (01:05→21:40)
[2018-11-14] MEDS: VANCOMYCIN 1.25 GM in NS 250 ML IV SCH ×3 (02:21→20:47)
--- NOTE | 2018-11-14 08:58 | SOAPPROG ---
SOAP Progress Note Assessment/Plan: Assessment/Plan: 38yo M admitted with left foot osteomyelitis. Homelessness. Alcohol abuse. Smoker. MRI shows osteomyelitis of the 2nd and 3rd metatarsals, to the cuneiform. Culture MSSA, group A strep pyogenes - continue IV antibiotics per ID Will go to OR this afternoon for amputation of L 2nd and 3rd toes. NPO. Therapeutic abx. Pt understands that if osteo at margin on final path, will need a second surgery - he understands this and wishes to proceed. Appreciate hospitalist management Case management work on placement after admission - SNF or respite Seen with Dr. Desouza S: Very nervous about needing surgery - has many concerns which were discussed in great detail. Reports that pain is stable, no worsening swelling, fevers or chills. O: Lying in bed, comfortable, no acute distress Respiratory: No increased work of breathing Cardiovascular: No peripheral edema Dressings in place 11/14/18 09:18 Objective: Vital Signs Temp Pulse Resp BP Pulse Ox 36.8 C 68 16 115/74 92 11/14/18 04:00 11/14/18 04:00 11/14/18 04:00 11/14/18 04:00 11/14/18 04:00 11/13/18 11/14/18 11/15/18 05:59 05:59 05:59 Intake Total 350 Balance 350 PT 13.2 SEC (12.0-15.0) 11/12/18 04:38 INR 1.04 (0.83-1.16) 11/12/18 04:38 ICD10 Worksheet Patient Problems: Problems Problem Status Onset Cellulitis of foot Acute Osteomyelitis Acute Left arm cellulitis Acute
[2018-11-14] MEDS: GABAPENTIN 400 MG CAP PO SCH ×3 (09:28→20:47)
[2018-11-14] MEDS: FOLIC ACID 1 MG TAB PO SCH (09:31)
[2018-11-14] MEDS: OMEGA-3 FATTY ACIDS 1,000 MG CAP PO SCH (09:31)
[2018-11-14] MEDS: AMITRIPTYLINE HCL 25 MG TAB PO SCH ×3 (09:31→20:47)
[2018-11-14] MEDS: MULTIVITAMINS 1 EACH TAB PO SCH (09:31)
[2018-11-14] MEDS: VODKA 50 ML BOTTLE PO SCH ×3 (09:32→22:30)
[2018-11-14] MEDS: hydrOXYzine HCL 50 MG TAB PO SCH (09:38)
[2018-11-14] MEDS: NICOTINE 14 MG/24 HR PATCH TD SCH (10:26)
[2018-11-14] MEDS: hydrOXYzine HCL 50 MG TAB PO PRN (12:37)
[2018-11-14] MEDS ORDERED: NICOTINE POLACRILEX 2 MG GUM B PRN (14:23)
--- NOTE | 2018-11-14 14:26 | HOSPPROG ---
Hospitalist Progress Note Assessment/Plan: 38 yo homeless M w/ ETOH abuse presents with L foot infection, now with confirmed osteomyelitis. Will go to OR today for 2nd and 3rd toe amputation. He is distraught 1 hr prior to surgery, states he wants to end it all. Plan: Osteomyelitis of 2nd MT and 3rd MT and 3rd toe - MRI reviewed. He is s/p great toe amputation. - OR today for 2nd/3rd toe amputation, pt understands may need 2nd surgery - cont Zosyn plus Vanc per ID Suicidal thoughts - I contacted [facility] immediately and they will evaluate him STAT - he is deemed safe and will go to OR ETOH abuse - Drinks 1-2 pints daily, does not plan to quit - vodka TID - Daily MVI, folate, thiamine Tobacco abuse - 1/2 ppd, has nicoderm patch, which he feels is not effective. He is upset about not being able to smoke - trial nicorette gum Homelessness - CM consult placed, will need assistance at d/c, ?respite bed Diet - Regular Code - Full Ppx - LMWH Dispo - Cont inpt, surgery today, CM involved with dispo planning Subjective: Pt is distraught. Upset with his life, wants to smoke. Says he is thinking about "ending it all". Says he has a plan, I asked him what that was and he did not want to share that. Pain is controlled. No CP or SOB. Objective: Vital Signs Temp Pulse Resp BP Pulse Ox 36.3 C 80 16 127/74 H 94 11/14/18 11:59 11/14/18 11:59 11/14/18 11:59 11/14/18 11:59 11/14/18 11:59 Laboratory Results 11/14/18 09:50 11/13/18 11/14/18 11/15/18 05:59 05:59 05:59 Intake Total 350 Balance 350 PT 13.2 SEC (12.0-15.0) 11/12/18 04:38 INR 1.04 (0.83-1.16) 11/12/18 04:38 - Physical Exam Constitutional: no apparent distress Eyes: PERRL Ears, Nose, Mouth, Throat: moist mucous membranes Cardiovascular: regular rate and rhythym Respiratory: no respiratory distress, clear to auscultation Gastrointestinal: normoactive bowel sounds, soft, non-tender abdomen Skin: warm Musculoskeletal: full muscle strength, other (LE itoe ulcers unchanged) Neurologic: AAOx3 Psychiatric: interacting appropriately ICD10 Worksheet Patient Problems: Problems Problem Status Onset Cellulitis of foot Acute Osteomyelitis Acute Left arm cellulitis Acute
[2018-11-14] MEDS ORDERED: BUPIVACAINE 0.5% 30 ML SDV ONE (14:33)
--- NOTE | 2018-11-14 15:42 | ASMTCMCOM ---
CM Note CM Note Notes: Patient is to go to OR for amputation of two toes. He expressed to hospital medicine a desire to inflict harm to himself, [facility] called and is seeing patient. I have sent the ULTC 100 application to see if LTC can be a feasible option. CM to follow for needs. Plan: TBD Date Signed: 11/14/2018 03:41 PM Electronically Signed By:Martha Banuelos RN
--- NOTE | 2018-11-14 16:23 | ASMTLCPROG ---
Notes Note: Notes: Pt's hospitalist contacted [facility], after pt referred to some vague SI, just prior to undergoing surgery where he will lose part if not all of his foot. [facility] clinician spent 90 minutes with pt. Pt is presently unemployed and homeless; he has had multiple losses throughout his life, both material and emotional, and is now facing the loss of part of his limb. He is without family support and is not involved in [facility] or other supportive agency. He has had medical needs in the past that have been addressed and left him feeling uncared for and neglected. He is expressing much anxiety, fear and sadness. Pt will not directly say whether he is suicidal. He speaks of a friend who has committed suicide and casually expresses methods that he could use if he also wanted to kill himself. His suicidal language appears directly related to above mentioned emotions and to his concern of surviving in his world with less physical capacity. He has been treated for psychiatric issues in the past, most probablly depression. Following the amputation of his big toe,from his presently infected foot, he was sent to [facility]. He also refers to being placed on anti-depressants in the past. Throughout the course of the discussion pt's speech became less guarded and less angry; he was able to express increasingly personal information. Many of his statements inferred that he is expecting a future following surgery. Pt does not currently present as a danger to himelf ; however depending on the outcome of surgery and whether he will be able to be provided some medical respite prior to returning to his homelessness, this could again become a concern. [facility] clincian will check in with pt following his surgery. Date Signed: 11/14/2018 04:22 PM Electronically Signed By:Shira Barragan
[2018-11-14] MEDS ORDERED: LR 1,000 ML IV ONE (16:33)
[2018-11-14] MEDS ORDERED: MIDAZOLAM 2 MG/2 ML VIAL IVP ONE (16:47)
--- NOTE | 2018-11-14 16:55 | PDANEPAE ---
ANE History of Present Illness Left 2nd and third toe amputation ANE Past Medical History - Cardiovascular History Hx Hypertension: No Hx Arrhythmias: No Hx Chest Pain: No Hx Coronary Artery / Peripheral Vascular Disease: No Hx CHF / Valvular Disease: No Hx Palpitations: No - Pulmonary History Hx COPD: No Hx Asthma/Reactive Airway Disease: No Hx Recent Upper Respiratory Infection: No Hx Oxygen in Use at Home: No Hx Sleep Apnea: No Sleep Apnea Screening Result - Last Documented: Negative - Endocrine History Hx Diabetes: No Hypothyroid: No Hyperthyroid: No Obesity: no - Chronic Pain History Chronic Pain: Yes ANE Review of Systems Review of Systems: - Exercise capacity METS (RN): 4 METS ANE Patient History - Allergies Allergies/Adverse Reactions: No Known Allergies Allergy (Unverified 11/11/18 23:22) - Home Medications Home Medications: Amitriptyline HCl [Elavil] 25 mg PO TID 10/08/18 [Last Taken 11/11/18 PM] Gabapentin [Gabapentin 800 mg] 800 mg PO TID 10/08/18 [Last Taken 11/11/18 PM] Herbals/Supplements -Info Only 1 ea PO DAILY 10/08/18 [Last Taken 09/08/18] Melatonin [Melatonin 3 MG (*)] 3 mg PO HS PRN 10/08/18 [Last Taken 09/08/18] Multivitamins [Multivitamin (*)] 1 each PO DAILY 10/08/18 [Last Taken 09/08/18] Beverly-3 Fatty Acids [Fish Oil 1000 mg (*)] 1,000 mg PO DAILY 10/08/18 [Last Taken 09/08/18] hydrOXYzine HCL [Vistaril 50MG (RX)] 50 mg PO DAILY 10/08/18 [Last Taken ] hydrOXYzine HCL [Vistaril 50MG (RX)] 50 mg PO TID PRN 10/08/18 [Last Taken 11/11 PM] - NPO status NPO Status: no food or drink >8 hours NPO Since - Liquids (Date): 11/14/18 NPO Since - Liquids (Time): 10:30 NPO Since - Solids (Date): 11/13/18 NPO Since - Solids (Time): 20:00 - Smoking Hx Smoking Status: Current every day smoker ANE Labs/Vital Signs - Labs Result Diagrams: 11/12/18 04:38 11/14/18 09:50 - Vital Signs Blood Pressure: 125/85 Heart Rate: 65 Respiratory Rate: 16 O2 Sat (%): 94 Height: 187.96 cm Weight: 79.379 kg ANE Physical Exam - Airway Neck exam: FROM Mouth exam: dentures - Pulmonary Pulmonary: no respiratory distress, no rales or rhonchi - Cardiovascular Cardiovascular: regular rate and rhythym, no murmur, rub, or gallop - ASA Status ASA Status: III ANE Anesthesia Plan Anesthesia Plan: general endotracheal anesthesia (Possible popliteal and ACB Pt has neuropathy left foot .. 6 inches above ankle)
[2018-11-14] MEDS ORDERED: fentaNYL 250 MCG/5 ML INJ ONE (16:59)
[2018-11-14] MEDS ORDERED: PROPOFOL/EMULSION 500 MG/50 ML BOTTLE IV ONE (16:59)
[2018-11-14] MEDS ORDERED: fentaNYL 100 MCG/2 ML INJ ONE (17:25)
[2018-11-14] MEDS ORDERED: PROPOFOL 200 MG/20 ML VIAL ONE ×2 (17:25)
[2018-11-14] MEDS ORDERED: ROCURONIUM 50 MG/5 ML VIAL ONE (17:30)
[2018-11-14] MEDS ORDERED: GLYCOPYRROLATE 0.2 MG/1 ML VIAL ONE ×4 (17:30→18:05)
[2018-11-14] MEDS ORDERED: NEOSTIGMINE METHYLSULFATE 5 MG/5 ML SYR ONE (18:05)
--- NOTE | 2018-11-14 18:05 | POSTOPPROG ---
Post Op Note Date of Operation: 11/14/18 Surgeon: Hermelinda Desouza Unloader Operator: love Anesthesiologist: prakash Anesthesia: GET(General Endotracheal) Pre-op Diagnosis: osteomylitis Post-op Diagnosis: same Indication: 38 yo with osteomylitis Procedure: amputation 2nd 3rd toe and met head Findings: soft 2nd met head Inf/Abcess present in the surg proc area at time of surgery?: Yes Depth: Deep Incisional (Fascial) EBL: Minimal Specimen(s): toes, met head
[2018-11-14] MEDS ORDERED: fentaNYL 100 MCG/2 ML INJ IVP PRN (18:27)
[2018-11-14] MEDS ORDERED: DIAZEPAM 5 MG/ML 1 ML SYR IVP PRN (18:27)
[2018-11-14] MEDS ORDERED: HYDROmorphONE/DILAUDID 2 MG/ML INJ IVP PRN (18:27)
[2018-11-14] MEDS ORDERED: NALOXONE HCL 0.4 MG/ML INJ IVP PRN (18:27)
[2018-11-14] MEDS ORDERED: ONDANSETRON 4 MG/2 ML VIAL IVP PRN (18:27)
--- NOTE | 2018-11-14 19:18 | POSTANESTH ---
Post Anesthetic Evaluation Cardiovascular Status: Normal, Stable, Similar to Pre-Op Cond Respiratory Status: Normal, Stable Level of Consciousness/Mental Status: Can Participate in Eval Pain Control: Adequate, Prn Tx Ordered Nausea/Vomiting Control: Adequate, Prn Tx Ordered Complications Possibly Related to Anesthesia: None Noted
--- NOTE | 2018-11-14 20:47 | ASMTLCPROG ---
Notes Note: Notes: [facility] clinician met again with pt following surgery. He had 2 of his toes on his left foot removed. In 3 days they will determine if any additional surgery is needed. Pt's spirits were bright; he shared details of his growing up in a poor and tough neighborhood and used his sense of humor to, as he called it ,"reframe" this experience. He spoke of things he would like to do in his future; he has been thinking of returning to school. There are noconcerns at the current time re self-harm/suicidal intent. Date Signed: 11/14/2018 08:47 PM Electronically Signed By:Shira Barragan
[2018-11-15] MEDS: oxyCODONE IR 5 MG TAB PO PRN ×3 (01:21→08:21)
[2018-11-15] MEDS: VANCOMYCIN 1.25 GM in NS 250 ML IV SCH ×5 (01:23→20:49)
[2018-11-15] MEDS: THIAMINE HCL 100 MG TAB PO SCH ×2 (05:51→08:21)
[2018-11-15] MEDS: AMITRIPTYLINE HCL 25 MG TAB PO SCH ×4 (08:21→21:07)
[2018-11-15] MEDS: OMEGA-3 FATTY ACIDS 1,000 MG CAP PO SCH (08:21)
[2018-11-15] MEDS: GABAPENTIN 400 MG CAP PO SCH ×3 (08:21→21:24)
[2018-11-15] MEDS: MULTIVITAMINS 1 EACH TAB PO SCH (08:21)
[2018-11-15] MEDS: hydrOXYzine HCL 50 MG TAB PO SCH (08:21)
[2018-11-15] MEDS: FOLIC ACID 1 MG TAB PO SCH (08:22)
[2018-11-15] MEDS: NICOTINE 14 MG/24 HR PATCH TD SCH (08:37)
[2018-11-15] MEDS: VODKA 50 ML BOTTLE PO SCH ×4 (09:15→21:06)
[2018-11-15] MEDS: hydrOXYzine HCL 50 MG TAB PO PRN (21:06)
--- NOTE | 2018-11-15 22:22 | PCMIDPN ---
Assessment/Plan: Assessment: 38-year-old man with left 2nd and 3rd toe osteomyelitis and cellulitis with osteomyelitis of the 2nd metatarsal extending proximally to involve 3/4 of the bone. Although he has undergone source control with amputation of the left 2nd and 3rd toes the 2nd metatarsal remains in place with osteomyelitis of the bone identified on MRI. Will require ongoing IV therapy for curative intent. 1. 2nd and 3rd left toe chronic osteomyelitis with deep soft tissue infection 2. 2nd metatarsal chronic osteomyelitis with deep soft tissue infection 3. Status post left 2nd and left 3rd toe amputation 11/14/2018 4. History of left elbow abscess with cellulitis (treated October 2018) 5. Alcohol abuse 6. Chronic homelessness 7. Intolerance to Bactrim with hyperkalemia (October 2018) Plan: 1. Continue vancomycin with goal trough 15-20 2. Continue ceftriaxone 2gm daily 3. Reviewed in detail potential side effects of beta-lactam antibiotics to include: allergy, rash, nausea, antibiotic-associated diarrhea, Clostridioides difficile colitis. 4. Reviewed in detail potential side effects of vancomycin to include: allergy, rash, nausea, antibiotic-associated diarrhea, Clostridioides difficile colitis, acute kidney injury. Ladarius Hsieh MD Infectious Diseases 11/15/18 22:23 Subjective: No fever or chills in the past 24-hours. Underwent amputation of the left 2nd and 3rd toes yesterday. Continues to have pain on the dorsum of the left foot that is unchanged over the past few months. Tolerating oral diet with solids and liquids. No diarrhea, nausea, or other GI symptoms. No rash. Appetite improving. Objective: Vital Signs Temp Pulse Resp BP Pulse Ox 37.2 C 82 18 126/89 H 92 11/15/18 20:00 11/15/18 20:00 11/15/18 20:00 11/15/18 20:00 11/15/18 20:00 Microbiology 11/14/18 17:30 Gram Stain - Final Toe - Bone Laboratory Results 11/14/18 09:50 11/14/18 11/15/18 11/16/18 05:59 05:59 05:59 Intake Total 350 2040 550 Output Total 310 525 Balance 350 1730 25 ESR 34 MM/HR (0-15) H 11/12/18 04:38 C-Reactive Protein 87.4 mg/L (<10.0) H 11/12/18 04:38 Medications Generic Name Dose Route Start Last Admin Trade Name Shen PRN Reason Stop Dose Admin Ceftriaxone Sodium 2 gm/ 50 mls @ 100 mls/hr 11/13/18 16:00 11/15/18 09:16 Sodium Chloride IV 12/13/18 15:59 50 mls DAILY [facility] Protocol Vancomycin HCl 1.25 gm/ Sodium 250 mls @ 166.667 mls/hr 11/13/18 18:00 20:49 Chloride IV 12/13/18 17:59 Not Given Q8H [facility] Microbiology 11/14/18 17:30 Toe - Bone Gram Stain - Final 11/12/18 15:00 Toe - Eswab Gram Stain - Final 11/14/18 17:30 Toe - Bone Anaerobic Culture - Preliminary 11/12/18 15:00 Toe - Eswab Anaerobic Culture - Preliminary Streptococcus Pyogenes Grp A MRSA Finegoldia Magna 11/12/18 04:38 Blood Blood Culture - Preliminary 11/12/18 04:30 Blood Blood Culture - Preliminary Laboratory Tests 11/12/18 11/12/18 11/13/18 04:38 04:38 16:40 WBC 8.21 Plt Count 310 ESR 34 H Creatinine 0.6 L C-Reactive Protein 87.4 H Vancomycin Trough 6.2 Ethyl Alcohol 282 H 11/15/18 09:25 WBC Plt Count ESR Creatinine C-Reactive Protein Vancomycin Trough 14.5 Ethyl Alcohol - Physical Exam General Appearance: no apparent distress, non-toxic EENT: No scleral icterus Respiratory: No accessory muscle use Neck: full range of motion, supple Extremities: other (Left foot with postsurgical dressing in place over the amputated sites of the 2nd and 3rd toe, blood on the dressing with no surrounding erythema, and no erythema extending proximally over the dorsum of the foot) Skin: other (Small circular area of erythema the mid left rasmussen, improved with no induration fluctuance) Neuro/Psych: alert, oriented x 3, depressed affect, No confused - Time Spent With Patient Time Spent with Patient: greater than 25 minutes Time Spent with Patient: Greater than 25 minutes spent on this patients care, greater than 50% of time spent counseling, educating, and coordinating care regarding the above mentioned plan. ICD10 Worksheet Patient Problems: Problems Problem Status Onset Cellulitis of foot Acute Osteomyelitis Acute Left arm cellulitis Acute
[2018-11-16] MEDS: VANCOMYCIN 1.25 GM in NS 250 ML IV SCH ×3 (02:26→18:15)
[2018-11-16] MEDS: oxyCODONE IR 5 MG TAB PO PRN ×3 (05:40→19:59)
[2018-11-16] MEDS: VODKA 50 ML BOTTLE PO SCH (08:27)
[2018-11-16] MEDS: FOLIC ACID 1 MG TAB PO SCH (08:27)
[2018-11-16] MEDS: THIAMINE HCL 100 MG TAB PO SCH (08:28)
[2018-11-16] MEDS: hydrOXYzine HCL 50 MG TAB PO SCH (08:28)
[2018-11-16] MEDS: AMITRIPTYLINE HCL 25 MG TAB PO SCH ×3 (08:28→22:20)
[2018-11-16] MEDS: GABAPENTIN 400 MG CAP PO SCH ×3 (08:28→18:15)
[2018-11-16] MEDS: MULTIVITAMINS 1 EACH TAB PO SCH (08:28)
[2018-11-16] MEDS: OMEGA-3 FATTY ACIDS 1,000 MG CAP PO SCH (08:28)
[2018-11-16] MEDS: NICOTINE 14 MG/24 HR PATCH TD SCH (08:29)
--- NOTE | 2018-11-16 10:20 | ASMTCMCOM ---
CM Note CM Note Notes: Chart reviewed. POD 2. No therapies yet. [facility] to come to assess today. [facility] following. CM to follow for needs, Plan: TBD Date Signed: 11/16/2018 10:19 AM Electronically Signed By:Martha Banuelos RN
--- NOTE | 2018-11-16 10:32 | SOAPPROG ---
SOAP Progress Note Assessment/Plan: Assessment/Plan 38 year old male with OM left foot s/p P2/P3 amputation POD#2. Homeless, alcohol abuse. wound swab-strep pyogenes, MRSA+ continue IV vanc per ID-bone cultures pending, oxy/gabapentin for pain control clear for discharge from a surgical standpoint continue wound management/dressing changes-ok to shower cam boot for walking and support S: Still having pain that he feels is not controlled with oral meds, no fever/ chills. Adjusting to walking with cam boot. O: laying in bed, NAD afebrile, VSS no increased WOB HR reg skin warm and dry, left foot-pedal and distal tibial pulses 2+. Minor swelling and erythema , incisions with small amount serosanguinous drainage on bandage. Erythema on medial edge of foot is new - strep like color vs pressure from boot ? Will monitor 11/16/18 10:27 11/16/18 10:33 11/16/18 10:35 11/16/18 10:37 11/16/18 15:34 11/16/18 15:37 11/16/18 15:39 11/16/18 16:27 Objective: Vital Signs Temp Pulse Resp BP Pulse Ox 36.9 C 82 14 124/85 H 94 11/16/18 08:00 11/16/18 08:00 11/16/18 08:00 11/16/18 08:00 11/16/18 08:00 Microbiology 11/14/18 17:30 Gram Stain - Final Toe - Bone Laboratory Results 11/16/18 04:34 11/15/18 11/16/18 11/17/18 05:59 05:59 05:59 Intake Total 2040 1700 Output Total 310 1075 Balance 1730 625 PT 13.2 SEC (12.0-15.0) 11/12/18 04:38 INR 1.04 (0.83-1.16) 11/12/18 04:38 ICD10 Worksheet Patient Problems: Problems Problem Status Onset Cellulitis of foot Acute Osteomyelitis Acute Left arm cellulitis Acute
--- NOTE | 2018-11-16 10:54 | GOP ---
[f rep st] OPERATIVE REPORT DATE OF OPERATION: 11/14/2018 SURGEON: Hermelinda Desouza MD BODY HANGER: Lalita Silva, SAIGE. ANESTHESIA: General. ANESTHESIOLOGIST: Roz Rascon MD. PREOPERATIVE DIAGNOSIS: Osteomyelitis of second and third toe and metatarsals. POSTOPERATIVE DIAGNOSIS: Osteomyelitis of second and third toe and metatarsals. PROCEDURE PERFORMED: Amputation of left second and third toes and metatarsal heads. FINDINGS: SPECIMENS: Second and third toe for pathology, stitch marked second toe. Second toe for microbiolog y. Second metatarsal head ink rodríguez proximal and third metatarsal head ink rodríguez proximal for perman ent. ESTIMATED BLOOD LOSS: 25 cc. INDICATIONS: The patient is a 38-year-old man, who developed a frostbite injury approximately 3 year s ago. He had his great toe amputated, and then he is now having difficulty with his second and thir d toes. MRI was performed, which showed osteomyelitis of the second ray including second cuneiform, third metatarsal, and third toe; osteomyelitis of the distal third toe distal and distal middle phala nge. We discussed multiple options with the patient and even had Orthopedics come see him. The best option for him would be a below-knee amputation. He could try for an ankle-sparing procedure with a transmetatarsal amputation, although having osteomyelitis of the cuneiform does create some instabil ity. The patient began having suicidal ideation and even said things like he would rather take 20 g of heroin and alcohol than proceed. I had another conversation with the patient and discussed we cou ld take the second and third toe, and see if there is pathologic evidence of osteomyelitis at the met atarsal heads. This would require a second surgery, but it seemed that this was appropriate stepwise . [facility] was also involved. DESCRIPTION OF PROCEDURE: The patient was brought into the operating room and placed supine on the t able. General anesthesia was administered. His foot was prepped and draped in the usual sterile fas hion. I infiltrated the areas with 0.5% Marcaine prior to making incisions. I removed the second an d third toe, and I marked the second toe with a stitch and submitted this to Pathology. I used a per iosteal elevator and elevated the skin away from the bone. I took a slice of bone from the second to e and sent this for microbiology. I extended my incision over the dorsum of the foot so that I could evaluate the metatarsals. I used a periosteal elevator to continue my dissection beyond the metatar sharmin heads. The third metatarsal head was actually quite firm, and the second metatarsal head was sma ll and had a tendency to crumble. I used the microsagittal saw to obtain a sample of both the second and third metatarsals. These were inked proximally and sent to Pathology for permanent. Hemostasis was achieved within the wound. The deep layer was closed with 2-0 Vicryl. I was able to close the skin with 2-0 nylon. A sterile dressing was applied. He was awakened in the operating room, extubat ed, and transferred to PACU in stable condition. /[id number]/MODL
--- NOTE | 2018-11-16 12:15 | HOSPPROG ---
Hospitalist Progress Note Assessment/Plan: # R toe OM s/p resection of 2nd and 3rd toes (great toe previously resected) - wound swab with MRSA, GAS, finegoldia - cont rocephin and vanc per ID - pain control with gabapentin and oxy # etOH abuse - we discussed tapering his vodka - change to just HS today and stop entirely in a few days - he is very open to this # SI - suspect there is a component of PTSD - Carmita Arreola will consult today # tobacco use - Nicorette gum # homeless - working on SNF discharge; [id number] sent # dvt ppx - lovenox Subjective: long conversation about his foot and toes, etOH and seeing a counselor Objective: Vital Signs Temp Pulse Resp BP Pulse Ox 36.8 C 87 14 131/85 H 94 11/16/18 11:30 11/16/18 11:30 11/16/18 11:30 11/16/18 11:30 11/16/18 11:30 Microbiology 11/14/18 17:30 Gram Stain - Final Toe - Bone Laboratory Results 11/16/18 04:34 11/15/18 11/16/18 11/17/18 05:59 05:59 05:59 Intake Total 2040 1700 Output Total 310 1075 Balance 1730 625 PT 13.2 SEC (12.0-15.0) 11/12/18 04:38 INR 1.04 (0.83-1.16) 11/12/18 04:38 - Time Spent With Patient Time Spent with Patient: greater than 35 minutes Time Spent with Patient: Greater than 35 minutes spent on this patients care, greater than 50% of time spent counseling, educating, and coordinating care regarding the above mentioned plan. - Physical Exam Constitutional: no apparent distress, appears nourished Musculoskeletal: other (R foot with bandage, CDI) ICD10 Worksheet Patient Problems: Problems Problem Status Onset Left arm cellulitis Acute Cellulitis of foot Acute Osteomyelitis Acute
--- NOTE | 2018-11-16 15:33 | ASMTCMCOM ---
CM Note CM Note Notes: Patient plan of care reviewed in am rounds. Patient is a 38 year old homeless male with anxiety and history of alcohol abuse admitted with osteomylitis of his toes on left foot. Amputation of second and third toes 2 days ago. Awaiting PT evaluation. Dr. Lorena Hernandez asked to weigh in on behaviours and [facility] has seen the patient two times recently. He is not appropriate for behavioral health admission per Dr. Hernandez at this time. This brief writer has left a message with Carmita Arreola to see patient. Patient is hoping to get some type of respite care and seems very cooperative with measures to taper alcohol use. He has no family or contacts. ULTC 100 pending. Awaiting therapy recommendations. Plan: TBD Date Signed: 11/16/2018 03:32 PM Electronically Signed By:Martha Banuelos RN
--- NOTE | 2018-11-16 16:02 | PCMIDPN ---
Assessment/Plan: Assessment/Plan: * Left 2/3 toe osteomyelitis with concern for residual more proximal osteomyelitis post amputation: Bone culture showing growth of Staphylococcus aureus which likely will represent MRSA. Prior tissue culture showing growth of MRSA, group A Streptococcus, and Finegoldia. No gram-negative chitra isolated to date. Given this finding, will transition to vancomycin monotherapy with discontinuation of ceftriaxone. Continued followup of cultures over time with modification of antibiotic therapy based on findings. Patient with new erythema over foot today which does appear cellulitic in nature. Other consideration would be irritant effect from wearing boot. Will continue to monitor this with time. Repeat vancomycin trough tomorrow to ensure no evidence of accumulation. Await pathology findings. If residual osteomyelitis present, additional debridement/amputation would be necessary as medical therapy alone unlikely to be curative. 11/16/18 15:59 11/16/18 16:08 11/16/18 16:10 Subjective: Patient without specific complaints. No itching, rash or diarrhea. Objective: Vital Signs Temp Pulse Resp BP Pulse Ox 36.8 C 87 14 131/85 H 94 11/16/18 11:30 11/16/18 11:30 11/16/18 11:30 11/16/18 11:30 11/16/18 11:30 Microbiology 11/14/18 17:30 Gram Stain - Final Toe - Bone Laboratory Results 11/16/18 04:34 11/15/18 11/16/18 11/17/18 05:59 05:59 05:59 Intake Total 2040 1700 Output Total 310 1075 Balance 1730 625 ESR 34 MM/HR (0-15) H 11/12/18 04:38 C-Reactive Protein 87.4 mg/L (<10.0) H 11/12/18 04:38 Vancomycin #5 Ceftriaxone #4 Bone culture with growth of Staphylococcus aureus Tissue culture with growth of MRSA, group A Laboratory Tests 11/15/18 09:25 Vancomycin Trough 14.5 Streptococcus, and Finegoldia - Physical Exam General Appearance: alert, no apparent distress EENT: No scleral icterus, No thrush Respiratory: lungs clear, No respiratory distress Cardiac/Chest: regular rate, rhythm Extremities: inflammation (Right foot amputation site with intact incision line with scant blood draining; faint erythema present over dorsum laterally and medially aspect of foot with mild warmth) Abdomen: non-tender, No distended ICD10 Worksheet Patient Problems: Problems Problem Status Onset Cellulitis of foot Acute Osteomyelitis Acute Left arm cellulitis Acute
[2018-11-16] MEDS ORDERED: VODKA 50 ML BOTTLE PO SCH (18:00)
[2018-11-16] MEDS: hydrOXYzine HCL 50 MG TAB PO PRN (19:58)
[2018-11-17] MEDS: VANCOMYCIN 1.25 GM in NS 250 ML IV SCH ×3 (02:48→20:15)
[2018-11-17 05:40] LABS: PLATELET COUNT 384 10^3/uL (150-400)
--- NOTE | 2018-11-17 08:53 | SOAPPROG ---
SOAP Progress Note Assessment/Plan: Assessment/Plan: 38yo M admitted with left foot osteomyelitis. Homelessness. Alcohol abuse. Smoker. POD#3 s/p amputation L 2nd and 3rd toes and distal metatarsals Wound culture - strep pyogenes, MRSA PO pain meds Clear for discharge from a surgical standpoint Continue wound management/dressing changes-ok to shower Cam boot for walking and support Awaiting path report to determine if needs further amputation Appreciate hospitalists and ID Seen with Dr. Desouza S: No new complaints this am. PO pain control. Ambulating without difficulty O: laying in bed, comfortable, NAD No increased WOB Palp L DP pulse Left foot edematous to midfoot, erythema of medial foot improved compared to yesterday but persistent around incision. Sutures intact. Objective: Vital Signs Temp Pulse Resp BP Pulse Ox 37.0 C 91 16 134/99 H 94 11/17/18 08:27 11/17/18 08:27 11/17/18 08:27 11/17/18 08:27 11/17/18 08:27 Microbiology 11/14/18 17:30 Gram Stain - Final Toe - Bone Laboratory Results 11/17/18 04:50 11/16/18 04:34 11/16/18 11/17/18 11/18/18 05:59 05:59 05:59 Intake Total 1700 1425 Output Total 1075 525 Balance 625 900 PT 13.2 SEC (12.0-15.0) 11/12/18 04:38 INR 1.04 (0.83-1.16) 11/12/18 04:38 ICD10 Worksheet Patient Problems: Problems Problem Status Onset Cellulitis of foot Acute Osteomyelitis Acute Left arm cellulitis Acute
[2018-11-17] MEDS: hydrOXYzine HCL 50 MG TAB PO SCH (08:59)
[2018-11-17] MEDS: THIAMINE HCL 100 MG TAB PO SCH (08:59)
[2018-11-17] MEDS: GABAPENTIN 400 MG CAP PO SCH ×3 (08:59→17:57)
[2018-11-17] MEDS: FOLIC ACID 1 MG TAB PO SCH (08:59)
[2018-11-17] MEDS: MULTIVITAMINS 1 EACH TAB PO SCH (08:59)
[2018-11-17] MEDS: AMITRIPTYLINE HCL 25 MG TAB PO SCH ×3 (08:59→21:15)
[2018-11-17] MEDS: OMEGA-3 FATTY ACIDS 1,000 MG CAP PO SCH (08:59)
[2018-11-17] MEDS: NICOTINE 14 MG/24 HR PATCH TD SCH (09:00)
[2018-11-17] MEDS: oxyCODONE IR 5 MG TAB PO PRN ×3 (11:43→21:15)
[2018-11-17] MEDS: ENOXAPARIN 40 MG/0.4 ML SYR SC SCH (11:43)
--- NOTE | 2018-11-17 11:47 | HOSPPROG ---
Hospitalist Progress Note Assessment/Plan: # R toe OM s/p resection of 2nd and 3rd toes (great toe previously resected) - bone culture with staph a. - suspect will be MRSA - vanc per ID - follow up on path for margins # etOH abuse - we discussed stopping his vodka today # SI - suspect there is a component of PTSD - Carmita Arreola will was not able to consult due to being over her hours - i think he would greatly benefit from this consult # tobacco use - Nicorette gum # homeless - working on SNF discharge; [id number] sent # dvt ppx - lovenox Subjective: He expresses frustration over multiple facet of his hospitalization including not being able to smoke, not getting socks quickly enough, people not answering his call light quickly enough, IVs beeping Objective: Vital Signs Temp Pulse Resp BP Pulse Ox 36.7 C 85 18 121/80 H 95 11/17/18 11:22 11/17/18 11:22 11/17/18 11:22 11/17/18 11:22 11/17/18 11:22 Microbiology 11/14/18 17:30 Gram Stain - Final Toe - Bone Laboratory Results 11/17/18 04:50 11/16/18 04:34 11/16/18 11/17/18 11/18/18 05:59 05:59 05:59 Intake Total 1700 1425 Output Total 1075 525 Balance 625 900 PT 13.2 SEC (12.0-15.0) 11/12/18 04:38 INR 1.04 (0.83-1.16) 11/12/18 04:38 - Time Spent With Patient Time Spent with Patient: greater than 35 minutes Time Spent with Patient: Greater than 35 minutes spent on this patients care, greater than 50% of time spent counseling, educating, and coordinating care regarding the above mentioned plan. - Physical Exam Constitutional: no apparent distress, appears nourished, other (sitting in chair ) ICD10 Worksheet Patient Problems: Problems Problem Status Onset Left arm cellulitis Acute Cellulitis of foot Acute Osteomyelitis Acute
--- NOTE | 2018-11-17 13:23 | PCMIDPN ---
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 Patient on vancomycin monotherapy. Will check vancomycin trough prior to next Vanco dose today. Adjust as to levels. Erythema on the dorsum of the right foot appears to be somewhat improved. Will continue to observe this. Plan: 1. Continue vancomycin at present dose. 2. Follow up on vancomycin trough later today. 11/17/18 13:21 Subjective: Patient is resting in his hospital bed. Awakened easily upon my entry. Notes that the redness on the top of his foot is improved since yesterday. Is having no problems with diarrhea or rash. No fevers. Objective: Vancomycin # 6 Vital Signs Temp Pulse Resp BP Pulse Ox 36.7 C 85 18 121/80 H 95 11/17/18 11:22 11/17/18 11:22 11/17/18 11:22 11/17/18 11:22 11/17/18 11:22 Microbiology 11/14/18 17:30 Gram Stain - Final Toe - Bone Laboratory Results 11/17/18 04:50 11/16/18 04:34 11/16/18 11/17/18 11/18/18 05:59 05:59 05:59 Intake Total 1700 1425 Output Total 1075 525 Balance 625 900 ESR 34 MM/HR (0-15) H 11/12/18 04:38 C-Reactive Protein 87.4 mg/L (<10.0) H 11/12/18 04:38 - Physical Exam General Appearance: WD/WN, alert, no apparent distress, non-toxic Extremities: non-tender, erythema, No normal inspection (Right foot status post 2nd and 3rd toe amputation. Erythema on the dorsum.), No necrosis Skin: normal color, warm/dry, No rash Neuro/Psych: alert, normal mood/affect, oriented x 3 ICD10 Worksheet Patient Problems: Problems Problem Status Onset Cellulitis of foot Acute Osteomyelitis Acute Left arm cellulitis Acute
--- NOTE | 2018-11-17 14:57 | ASMTCMCOM ---
CM Note CM Note Notes: CM received call from Carmita Maxwell, she shared she is unable to meet with the patient and will be able to meet with him on Tuesday if he is still inpatient. CM met with patient to sign Release of Information for [employer] [facility] to support [facility] processing. Patient signed WILLIAM without issue. Mike shared he is ready to leave the hospital and is frustrated about his condition. CM worked with the patient during the last discharge and reflected back to him that he is sharing his discomfort with medical treatment and also see he presented back to the hospital after he was discharged and asked what motivated him to come back. He shared his toes looked really bad and though he is frustrated & depressed, he does not want to . 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 CM shared I will fax the Medical Records request to [employer] [facility] [employer] (faxed & received confirmation) to continue processing for application for LTC Medicaid. CM to follow. D/C Plan: TBD Date Signed: 11/17/2018 02:56 PM Electronically Signed By:Nidhi Weaver
[2018-11-17] MEDS: hydrOXYzine HCL 50 MG TAB PO PRN (21:16)
[2018-11-18] MEDS: VANCOMYCIN 1.25 GM in NS 250 ML IV SCH ×3 (03:33→17:36)
[2018-11-18] MEDS: oxyCODONE IR 5 MG TAB PO PRN ×5 (03:40→20:56)
[2018-11-18] MEDS: GABAPENTIN 400 MG CAP PO SCH ×3 (09:28→17:36)
[2018-11-18] MEDS: OMEGA-3 FATTY ACIDS 1,000 MG CAP PO SCH (09:28)
[2018-11-18] MEDS: hydrOXYzine HCL 50 MG TAB PO SCH (09:28)
[2018-11-18] MEDS: AMITRIPTYLINE HCL 25 MG TAB PO SCH ×3 (09:28→20:55)
[2018-11-18] MEDS: MULTIVITAMINS 1 EACH TAB PO SCH (09:29)
[2018-11-18] MEDS: FOLIC ACID 1 MG TAB PO SCH (09:29)
[2018-11-18] MEDS: NICOTINE 14 MG/24 HR PATCH TD SCH (09:30)
[2018-11-18] MEDS: ENOXAPARIN 40 MG/0.4 ML SYR SC SCH (09:30)
[2018-11-18] MEDS: THIAMINE HCL 100 MG TAB PO SCH (09:30)
--- NOTE | 2018-11-18 10:02 | SOAPPROG ---
SOAP Progress Note Assessment/Plan: Assessment/Plan: 38yo M admitted with left foot osteomyelitis. Homelessness. Alcohol abuse. Smoker. S/p amputation L 2nd and 3rd toes and distal metatarsals Wound culture - strep pyogenes, MRSA. Surgical cultures pending PO pain meds Clear for discharge from a surgical standpoint Continue wound management/dressing changes-ok to shower CAM boot for walking and support Awaiting path report to determine if needs further amputation Appreciate hospitalists and ID Dispo: Awaiting placement. Cleared for discharge from surgery standpoint, but may require readmission for further amputation if needed S: No changes today. Continues to be frustrated about the situation and this hospitalization O: laying in bed, comfortable, NAD No increased WOB Palp L DP pulse Left foot edema improving, erythema of dorsal foot stable/slightly improved. Dressing intact 11/18/18 10:00 Objective: Vital Signs Temp Pulse Resp BP Pulse Ox 37.1 C 80 16 118/73 96 11/18/18 08:00 11/18/18 08:00 11/18/18 08:00 11/18/18 08:00 11/18/18 08:00 Microbiology 11/14/18 17:30 Gram Stain - Final Toe - Bone Laboratory Results 11/17/18 04:50 11/18/18 05:00 11/17/18 11/18/18 11/19/18 05:59 05:59 05:59 Intake Total 1425 1400 Output Total 525 Balance 900 1400 PT 13.2 SEC (12.0-15.0) 11/12/18 04:38 INR 1.04 (0.83-1.16) 11/12/18 04:38 ICD10 Worksheet Patient Problems: Problems Problem Status Onset Cellulitis of foot Acute Osteomyelitis Acute Left arm cellulitis Acute
--- NOTE | 2018-11-18 10:09 | PCMIDPN ---
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 Patient on vancomycin monotherapy. Vanc trough of 13. Creatinine stable. No adjustment required. Erythema on the dorsum of the right foot appears to be somewhat improved. Deeper tissue culture is growing a methicillin sensitive strain of Staph aureus. Regardless given the MRSA isolate from 2 days prior will continue to cover with vancomycin. Plan: 1. Continue vancomycin at present dose. 2. Follow clinical appearance of the right foot. Subjective: Patient is resting comfortably in his hospital bed. He is in good spirits. He has no new complaints. No rash. Tolerating antibiotics. Objective: Vancomycin # 7 Vital Signs Temp Pulse Resp BP Pulse Ox 37.1 C 80 16 118/73 96 11/18/18 08:00 11/18/18 08:00 11/18/18 08:00 11/18/18 08:00 11/18/18 08:00 Microbiology 11/14/18 17:30 Gram Stain - Final Toe - Bone Laboratory Results 11/17/18 04:50 11/18/18 05:00 11/17/18 11/18/18 11/19/18 05:59 05:59 05:59 Intake Total 1425 1400 Output Total 525 Balance 900 1400 ESR 34 MM/HR (0-15) H 11/12/18 04:38 C-Reactive Protein 87.4 mg/L (<10.0) H 11/12/18 04:38 - Physical Exam General Appearance: WD/WN, alert, non-toxic Respiratory: lungs clear, normal breath sounds, No respiratory distress Cardiac/Chest: regular rate, rhythm, No tachycardia Extremities: non-tender, No normal inspection Skin: normal color, warm/dry, No rash Neuro/Psych: alert, normal mood/affect, oriented x 3 ICD10 Worksheet Patient Problems: Problems Problem Status Onset Cellulitis of foot Acute Osteomyelitis Acute Left arm cellulitis Acute
--- NOTE | 2018-11-18 13:43 | HOSPPROG ---
Hospitalist Progress Note Assessment/Plan: # R toe OM: s/p resection of 2nd and 3rd toes (great toe previously resected) -awaiting further path. Cont IV Vanc -cont dressing changes # Etoh abuse: counseled on cessation. Alcohol stopped # SI - suspect there is a component of PTSD - Carmita mendoza was not able to consult due to being over her hours - reconsult Tuesday # tobacco use - Nicorette gum # homeless - working on SNF discharge; ULTC10 #DVT ppx: Lovenox Disp: inpatient admission for IV abx Subjective: sad "I won't be normal person again" Objective: Vital Signs Temp Pulse Resp BP Pulse Ox 37.1 C 75 16 109/79 95 11/18/18 12:05 11/18/18 12:05 11/18/18 12:05 11/18/18 12:05 11/18/18 12:05 Microbiology 11/14/18 17:30 Gram Stain - Final Toe - Bone Laboratory Results 11/17/18 04:50 11/18/18 05:00 11/17/18 11/18/18 11/19/18 05:59 05:59 05:59 Intake Total 1425 1400 Output Total 525 Balance 900 1400 PT 13.2 SEC (12.0-15.0) 11/12/18 04:38 INR 1.04 (0.83-1.16) 11/12/18 04:38 - Time Spent With Patient Time Spent with Patient: greater than 35 minutes Time Spent with Patient: Greater than 35 minutes spent on this patients care, greater than 50% of time spent counseling, educating, and coordinating care regarding the above mentioned plan. - Physical Exam Constitutional: no apparent distress Eyes: PERRL Ears, Nose, Mouth, Throat: moist mucous membranes Cardiovascular: regular rate and rhythym Respiratory: no respiratory distress Gastrointestinal: normoactive bowel sounds, soft, non-tender abdomen Genitourinary: no bladder fullness Skin: warm Musculoskeletal: other (right 2nd-3rd amputation site sutured. Min purulence, some redness extending on dorsum of foot) Neurologic: AAOx3, CN II-XII Intact Psychiatric: interacting appropriately, flat affect ICD10 Worksheet Patient Problems: Problems Problem Status Onset Cellulitis of foot Acute Osteomyelitis Acute Left arm cellulitis Acute
[2018-11-19] MEDS: oxyCODONE IR 5 MG TAB PO PRN ×6 (01:03→21:41)
[2018-11-19] MEDS: VANCOMYCIN 1.25 GM in NS 250 ML IV SCH ×3 (01:03→18:40)
[2018-11-19] MEDS: THIAMINE HCL 100 MG TAB PO SCH (09:30)
[2018-11-19] MEDS: ENOXAPARIN 40 MG/0.4 ML SYR SC SCH (09:30)
[2018-11-19] MEDS: OMEGA-3 FATTY ACIDS 1,000 MG CAP PO SCH (09:31)
[2018-11-19] MEDS: MULTIVITAMINS 1 EACH TAB PO SCH (09:31)
[2018-11-19] MEDS: hydrOXYzine HCL 50 MG TAB PO SCH (09:31)
[2018-11-19] MEDS: GABAPENTIN 400 MG CAP PO SCH ×3 (09:31→18:26)
[2018-11-19] MEDS: AMITRIPTYLINE HCL 25 MG TAB PO SCH ×3 (09:33→21:42)
[2018-11-19] MEDS: NICOTINE 14 MG/24 HR PATCH TD SCH (09:33)
[2018-11-19] MEDS: FOLIC ACID 1 MG TAB PO SCH (09:33)
[2018-11-19] MEDS ORDERED: BISACODYL 10 MG SUPP PR PRN (10:59)
[2018-11-19] MEDS ORDERED: POLYETHYLENE GLYCOL 3350 17 GM PKT PO PRN (10:59)
[2018-11-19] MEDS ORDERED: MAGNESIUM HYDROXIDE 30 ML UDCUP PO PRN (10:59)
[2018-11-19] MEDS ORDERED: LACTULOSE 20 GM/30 ML UDCUP PO PRN (10:59)
--- NOTE | 2018-11-19 13:20 | SOAPPROG ---
SOAP Progress Note Assessment/Plan: Assessment/Plan: 38yo M admitted with left foot osteomyelitis. Homelessness. Alcohol abuse. Smoker. S/p amputation L 2nd and 3rd toes and distal metatarsals. Cultures MRSA CAM boot for walking and support Awaiting path report to determine if needs further amputation Appreciate hospitalists and ID Dispo: Awaiting placement. Cleared for discharge from surgery standpoint, but may require readmission for further amputation if needed S: No changes today O: laying in bed, comfortable, NAD No increased WOB Dressings intact Objective: Vital Signs Temp Pulse Resp BP Pulse Ox 36.9 C 86 16 99/67 L 92 11/19/18 12:35 11/19/18 12:35 11/19/18 12:35 11/19/18 12:35 11/19/18 12:35 Microbiology 11/14/18 17:30 Gram Stain - Final Toe - Bone Laboratory Results 11/17/18 04:50 11/19/18 10:12 11/18/18 11/19/18 11/20/18 05:59 05:59 05:59 Intake Total 1400 1000 Balance 1400 1000 PT 13.2 SEC (12.0-15.0) 11/12/18 04:38 INR 1.04 (0.83-1.16) 11/12/18 04:38 ICD10 Worksheet Patient Problems: Problems Problem Status Onset Cellulitis of foot Acute Osteomyelitis Acute Left arm cellulitis Acute
--- NOTE | 2018-11-19 15:18 | HOSPPROG ---
Hospitalist Progress Note Assessment/Plan: #Left foot OM: s/p resection of 2nd and 3rd toes (great toe previously resected) -awaiting further path. Cont IV Vanc -cont dressing changes #Etoh abuse: counseled on cessation. Alcohol stopped # SI - suspect there is a component of PTSD, mood depressed with amputation -reconsult Carmita Arreola Tuesday #Tobacco use - Nicorette gum # Homeless - working on SNF discharge; ULTC10 #DVT ppx: Lovenox Disp: inpatient admission for IV abx Subjective: "very frustrated, almost want to leave here" Objective: Vital Signs Temp Pulse Resp BP Pulse Ox 36.9 C 86 16 99/67 L 92 11/19/18 12:35 11/19/18 12:35 11/19/18 12:35 11/19/18 12:35 11/19/18 12:35 Microbiology 11/14/18 17:30 Gram Stain - Final Toe - Bone Laboratory Results 11/17/18 04:50 11/19/18 10:12 11/18/18 11/19/18 11/20/18 05:59 05:59 05:59 Intake Total 1400 1000 Balance 1400 1000 PT 13.2 SEC (12.0-15.0) 11/12/18 04:38 INR 1.04 (0.83-1.16) 11/12/18 04:38 - Time Spent With Patient Time Spent with Patient: greater than 35 minutes Time Spent with Patient: Greater than 35 minutes spent on this patients care, greater than 50% of time spent counseling, educating, and coordinating care regarding the above mentioned plan. - Physical Exam Constitutional: no apparent distress Eyes: PERRL Ears, Nose, Mouth, Throat: moist mucous membranes Cardiovascular: regular rate and rhythym Respiratory: no respiratory distress Gastrointestinal: normoactive bowel sounds Genitourinary: no bladder fullness Skin: warm Musculoskeletal: other (left foot dressed with EDNA, CDI. No streaking up ankle) Neurologic: AAOx3, CN II-XII Intact Psychiatric: flat affect ICD10 Worksheet Patient Problems: Problems Problem Status Onset Cellulitis of foot Acute Osteomyelitis Acute Left arm cellulitis Acute
[2018-11-19] MEDS: MELATONIN 3 MG TAB PO PRN (21:42)
[2018-11-19] MEDS: SENNOSIDES/DOCUSATE SODIUM TAB PO SCH (22:06)
[2018-11-20] MEDS: oxyCODONE IR 5 MG TAB PO PRN ×5 (00:46→21:15)
[2018-11-20] MEDS: VANCOMYCIN 1.25 GM in NS 250 ML IV SCH ×3 (00:46→18:15)
[2018-11-20] MEDS: hydrOXYzine HCL 50 MG TAB PO SCH (09:09)
[2018-11-20] MEDS: FOLIC ACID 1 MG TAB PO SCH (09:09)
[2018-11-20] MEDS: ENOXAPARIN 40 MG/0.4 ML SYR SC SCH (09:09)
[2018-11-20] MEDS: OMEGA-3 FATTY ACIDS 1,000 MG CAP PO SCH (09:09)
[2018-11-20] MEDS: MULTIVITAMINS 1 EACH TAB PO SCH (09:09)
[2018-11-20] MEDS: GABAPENTIN 400 MG CAP PO SCH ×3 (09:09→21:15)
[2018-11-20] MEDS: AMITRIPTYLINE HCL 25 MG TAB PO SCH ×3 (09:10→21:15)
[2018-11-20] MEDS: NICOTINE 14 MG/24 HR PATCH TD SCH (09:10)
[2018-11-20] MEDS: SENNOSIDES/DOCUSATE SODIUM TAB PO SCH ×2 (09:10→21:16)
[2018-11-20] MEDS: THIAMINE HCL 100 MG TAB PO SCH (09:10)
--- NOTE | 2018-11-20 12:47 | ASMTCMCOM ---
CM Note CM Note Notes: 11/20/2018 Case Management Note Discussed pt during rounds this morning. Path results pending to determine discharge iv antibiotic needs. Pt on contact precautions for MRSA and MSSA. PT has cleared for independent discharge. Pt ambulates in the halls without difficulty. Met w/pt to discuss discharge options. Pt is not willing to agree to a 30 day stay in SNF. Pt states he feels he will recover faster than that. Mari Vickers from [facility] to assess pt today for Level 2 PASRR. Provided requested records. Pt does not have friends or family in the area where he can recuperate. Attempted to discuss coming to the outpatient infusion center daily. Pt stated if transportation were provided he would consider it, however he felt the iv abx were not needed. Pt is upset about multiple iv insertions. Pt also upset that he is not allowed to smoke on [facility]. Updated Formal Waiter/Waitress and Director on case. Case Management d/c poc: to be determined. Case Management to follow. Date Signed: 11/20/2018 12:47 PM Electronically Signed By:Brii Rascon RN
[2018-11-20] MEDS ORDERED: IBUPROFEN 600 MG TAB PO PRN (15:19)
--- NOTE | 2018-11-20 15:21 | HOSPPROG ---
Hospitalist Progress Note Assessment/Plan: #Left foot OM: s/p resection of 2nd and 3rd toes (great toe previously resected) -awaiting further path. Cont IV Vanc -cont dressing changes #RUE swelling: check U/S. Warm compresses, NSAIDs #Etoh abuse: counseled on cessation. Alcohol stopped # SI - suspect there is a component of PTSD, mood depressed with amputation -Carmita Arreola evaluated today #Tobacco use - Nicorette gum # Homeless - working on SNF discharge; ULTC10. Frustrated and keeps threatening to leave #DVT ppx: Lovenox Disp: inpatient admission for IV abx. Subjective: right arm swollen and red. "sick of this place" Objective: Vital Signs Temp Pulse Resp BP Pulse Ox 36.9 C 71 16 116/89 H 95 11/20/18 11:13 11/20/18 11:13 11/20/18 11:13 11/20/18 11:13 11/20/18 11:13 Microbiology 11/14/18 17:30 Gram Stain - Final Toe - Bone Laboratory Results 11/17/18 04:50 11/19/18 10:12 11/19/18 11/20/18 11/21/18 05:59 05:59 05:59 Intake Total 1000 1450 Balance 1000 1450 PT 13.2 SEC (12.0-15.0) 11/12/18 04:38 INR 1.04 (0.83-1.16) 11/12/18 04:38 - Time Spent With Patient Time Spent with Patient: greater than 35 minutes Time Spent with Patient: Greater than 35 minutes spent on this patients care, greater than 50% of time spent counseling, educating, and coordinating care regarding the above mentioned plan. - Physical Exam Eyes: PERRL Ears, Nose, Mouth, Throat: moist mucous membranes Cardiovascular: regular rate and rhythym Respiratory: no respiratory distress Gastrointestinal: normoactive bowel sounds Genitourinary: No delgadillo in urethra Skin: warm Musculoskeletal: full muscle strength, other (RUE swollen/red. Left foot wrapped with EDNA bandage) Psychiatric: depressed, agitated ICD10 Worksheet Patient Problems: Problems Problem Status Onset Cellulitis of foot Acute Osteomyelitis Acute Left arm cellulitis Acute
--- NOTE | 2018-11-20 15:54 | ASMTCMCOM ---
CM Note CM Note Notes: Mari from [facility] here today to complete a Level 2 PASRR evaluation. She will write up report tonight. Pt's d/c plan still unclear. D/C plan: TBD Date Signed: 11/20/2018 03:53 PM Electronically Signed By:DARLYN Nathan
--- NOTE | 2018-11-20 17:00 | SOAPPROG ---
SOAP Progress Note Assessment/Plan: Pt meeting with Carmita Arreola - will try to stop by later Assessment/Plan: 38yo M admitted with left foot osteomyelitis. Homelessness. Alcohol abuse. Smoker. S/p amputation L 2nd and 3rd toes and distal metatarsals. Cultures MRSA CAM boot for walking and support Awaiting path report to determine if needs further amputation Appreciate hospitalists and ID Dispo: Awaiting placement. Cleared for discharge from surgery standpoint, but may require readmission for further amputation if needed Objective: Vital Signs Temp Pulse Resp BP Pulse Ox 37.1 C 74 18 130/86 H 92 11/20/18 15:28 11/20/18 15:28 11/20/18 15:28 11/20/18 15:28 11/20/18 15:28 Microbiology 11/14/18 17:30 Gram Stain - Final Toe - Bone Laboratory Results 11/17/18 04:50 11/19/18 10:12 11/19/18 11/20/18 11/21/18 05:59 05:59 05:59 Intake Total 1000 1450 Balance 1000 1450 PT 13.2 SEC (12.0-15.0) 11/12/18 04:38 INR 1.04 (0.83-1.16) 11/12/18 04:38 ICD10 Worksheet Patient Problems: Problems Problem Status Onset Cellulitis of foot Acute Osteomyelitis Acute Left arm cellulitis Acute
--- NOTE | 2018-11-20 18:23 | PCMIDPN ---
Assessment/Plan: Assessment/Plan: * Left 2/3 toe osteomyelitis with concern for residual more proximal osteomyelitis post amputation: Bone culture showing growth of MSSA with prior tissue culture showing growth of MRSA, group A Streptococcus, and Fine[place]ia. No gram-negative chitra isolated to date. Continue vancomycin given mixed staphylococcal susceptibilities pending pathology data. Will reassess vancomycin trough tomorrow. Creatinine remains stable on therapy. * Right upper extremity superficial thrombophlebitis: Continue supportive care. 11/20/18 18:20 11/20/18 18:21 Subjective: Patient complains of right forearm pain. Mild itching with vancomycin. Objective: Vital Signs Temp Pulse Resp BP Pulse Ox 37.1 C 74 18 130/86 H 92 11/20/18 15:28 11/20/18 15:28 11/20/18 15:28 11/20/18 15:28 11/20/18 15:28 Microbiology 11/14/18 17:30 Gram Stain - Final Toe - Bone Laboratory Results 11/17/18 04:50 11/19/18 10:12 11/19/18 11/20/18 11/21/18 05:59 05:59 05:59 Intake Total 1000 1450 Balance 1000 1450 ESR 34 MM/HR (0-15) H 11/12/18 04:38 C-Reactive Protein 87.4 mg/L (<10.0) H 11/12/18 04:38 Vancomycin # 9 - Physical Exam General Appearance: alert, no apparent distress EENT: No scleral icterus Respiratory: No respiratory distress Extremities: inflammation (Right foot with resolution of prior erythema; incision line intact with scant bleeding; no purulent drainage) Skin: other (Thrombophlebitis with small cord present over right upper forearm without fluctuance) ICD10 Worksheet Patient Problems: Problems Problem Status Onset Cellulitis of foot Acute Osteomyelitis Acute Left arm cellulitis Acute
[2018-11-21] MEDS: oxyCODONE IR 5 MG TAB PO PRN ×4 (00:52→21:38)
[2018-11-21] MEDS: VANCOMYCIN 1.25 GM in NS 250 ML IV SCH ×3 (02:57→18:47)
[2018-11-21] MEDS: MELATONIN 3 MG TAB PO PRN ×2 (03:23→21:37)
[2018-11-21] MEDS: ENOXAPARIN 40 MG/0.4 ML SYR SC SCH (09:36)
[2018-11-21] MEDS: THIAMINE HCL 100 MG TAB PO SCH (09:37)
[2018-11-21] MEDS: hydrOXYzine HCL 50 MG TAB PO SCH ×2 (09:37→21:38)
[2018-11-21] MEDS: OMEGA-3 FATTY ACIDS 1,000 MG CAP PO SCH (09:37)
[2018-11-21] MEDS: GABAPENTIN 400 MG CAP PO SCH ×4 (09:37→21:43)
[2018-11-21] MEDS: SENNOSIDES/DOCUSATE SODIUM TAB PO SCH ×2 (09:37→21:37)
[2018-11-21] MEDS: MULTIVITAMINS 1 EACH TAB PO SCH (09:38)
[2018-11-21] MEDS: AMITRIPTYLINE HCL 25 MG TAB PO SCH ×3 (09:38→21:39)
[2018-11-21] MEDS: FOLIC ACID 1 MG TAB PO SCH (09:38)
[2018-11-21] MEDS: NICOTINE 14 MG/24 HR PATCH TD SCH (09:38)
--- NOTE | 2018-11-21 11:50 | ASMTCMCOM ---
CM Note CM Note Notes: 11/21/2018 Case Management Note Discussed pt during rounds. Pathology report pending. Please see Carmita Arreola note from 11/20. Please see RN note from 11/20 regarding pt behaviors overnight. Discharge plan regarding IV antibiotics will be complicated by event last night. Case Management d/c poc: to be determined. Case Management to follow. Date Signed: 11/21/2018 11:49 AM Electronically Signed By:Brii Rascon RN
--- NOTE | 2018-11-21 15:34 | HOSPPROG ---
Hospitalist Progress Note Assessment/Plan: #Left foot OM: s/p resection of 2nd and 3rd toes (great toe previously resected) -awaiting further path. Cont IV Vanc per ID -cont dressing changes #RUE Superficial Thrombophlebitis: seen on U/S done 11/20. Apply warm compress. #Etoh abuse: counseled on cessation. Alcohol stopped # SI - suspect there is a component of PTSD, mood depressed with amputation -[facility] evaluation ordered #Tobacco use - Nicorette gum # Homeless - working on SNF discharge; ULTC10. Frustrated and keeps threatening to leave #DVT ppx: Lovenox Disp: inpatient admission for IV abx. Subjective: Patient reports frustration with not being able to smoke cigarettes Objective: Vital Signs Temp Pulse Resp BP Pulse Ox 36.9 C 96 16 123/77 H 95 11/21/18 08:23 11/21/18 11:52 11/21/18 11:52 11/21/18 11:52 11/21/18 11:52 Microbiology 11/14/18 17:30 Gram Stain - Final Toe - Bone Anaerobic Culture - Final Staphylococcus Aureus Laboratory Results 11/17/18 04:50 11/21/18 09:30 11/20/18 11/21/18 11/22/18 05:59 05:59 05:59 Intake Total 1450 1200 Balance 1450 1200 PT 13.2 SEC (12.0-15.0) 11/12/18 04:38 INR 1.04 (0.83-1.16) 11/12/18 04:38 - Physical Exam Constitutional: unkempt Eyes: PERRL Ears, Nose, Mouth, Throat: moist mucous membranes Cardiovascular: regular rate and rhythym Respiratory: no respiratory distress Gastrointestinal: normoactive bowel sounds Skin: warm Musculoskeletal: full muscle strength Neurologic: AAOx3 Psychiatric: anxious ICD10 Worksheet Patient Problems: Problems Problem Status Onset Cellulitis of foot Acute Osteomyelitis Acute Left arm cellulitis Acute
--- NOTE | 2018-11-21 15:34 | HOSPPROG ---
Hospitalist Progress Note Objective: Vital Signs Temp Pulse Resp BP Pulse Ox 36.9 C 96 16 123/77 H 95 11/21/18 08:23 11/21/18 11:52 11/21/18 11:52 11/21/18 11:52 11/21/18 11:52 Microbiology 11/14/18 17:30 Gram Stain - Final Toe - Bone Anaerobic Culture - Final Staphylococcus Aureus Laboratory Results 11/17/18 04:50 11/21/18 09:30 11/20/18 11/21/18 11/22/18 05:59 05:59 05:59 Intake Total 1450 1200 Balance 1450 1200 PT 13.2 SEC (12.0-15.0) 11/12/18 04:38 INR 1.04 (0.83-1.16) 11/12/18 04:38 ICD10 Worksheet Patient Problems: Problems Problem Status Onset Cellulitis of foot Acute Osteomyelitis Acute Left arm cellulitis Acute
--- NOTE | 2018-11-21 18:14 | PCMIDPN ---
Assessment/Plan: Assessment/Plan: * Left 2/3 toe osteomyelitis with concern for residual more proximal osteomyelitis post amputation: Bone pathology shows no evidence of osteomyelitis at proximal margins of left 2nd and 3rd toes as well as no osteomyelitis of the 2nd and 3rd metatarsal heads. Given this finding, will complete 10 days of vancomycin in total (day # 10/10) with plans for observation off antibiotics thereafter. Patient will have follow-up with surgery postoperatively for ongoing management of his surgical site. * Right upper extremity superficial thrombophlebitis: Clinically improving with supportive care. No signs or symptoms of superinfection. 11/21/18 18:11 Subjective: Patient with less right forearm pain. Objective: Vital Signs Temp Pulse Resp BP Pulse Ox 37.1 C 75 18 121/81 H 93 11/21/18 16:00 11/21/18 16:00 11/21/18 16:00 11/21/18 16:00 11/21/18 16:00 Microbiology 11/14/18 17:30 Gram Stain - Final Toe - Bone Anaerobic Culture - Final Staphylococcus Aureus Laboratory Results 11/17/18 04:50 11/21/18 09:30 11/20/18 11/21/18 11/22/18 05:59 05:59 05:59 Intake Total 1450 1200 850 Balance 1450 1200 850 ESR 34 MM/HR (0-15) H 11/12/18 04:38 C-Reactive Protein 87.4 mg/L (<10.0) H 11/12/18 04:38 Vancomycin # 10 Pathology showing no evidence of osteomyelitis at proximal margins of 2nd and 3rd toe; no evidence of osteomyelitis affecting 2nd or 3rd metatarsal head Laboratory Tests 11/21/18 09:30 Vancomycin Trough 18.2 - Physical Exam General Appearance: alert, no apparent distress EENT: No scleral icterus, No thrush Extremities: inflammation (Right foot without residual cellulitis; tiny area of incisional dehiscence distally; no drainage present other than scant blood on dressing; no tenderness to palpation) Abdomen: non-tender, No distended Skin: other (Right forearm phlebitis less prominent without fluctuance) ICD10 Worksheet Patient Problems: Problems Problem Status Onset Cellulitis of foot Acute Osteomyelitis Acute Left arm cellulitis Acute
[2018-11-22] MEDS: VANCOMYCIN 1.25 GM in NS 250 ML IV SCH (01:59)
[2018-11-22] MEDS: oxyCODONE IR 5 MG TAB PO PRN ×2 (02:07→08:23)
[2018-11-22] MEDS: OMEGA-3 FATTY ACIDS 1,000 MG CAP PO SCH (08:16)
[2018-11-22] MEDS: SENNOSIDES/DOCUSATE SODIUM TAB PO SCH (08:16)
[2018-11-22] MEDS: FOLIC ACID 1 MG TAB PO SCH (08:16)
[2018-11-22] MEDS: AMITRIPTYLINE HCL 25 MG TAB PO SCH (08:16)
[2018-11-22] MEDS: MULTIVITAMINS 1 EACH TAB PO SCH (08:16)
[2018-11-22] MEDS: THIAMINE HCL 100 MG TAB PO SCH (08:17)
[2018-11-22] MEDS: NICOTINE 14 MG/24 HR PATCH TD SCH (08:18)
[2018-11-22] MEDS: ENOXAPARIN 40 MG/0.4 ML SYR SC SCH (08:24)
--- NOTE | 2018-11-22 09:28 | SOAPPROG ---
SOAP Progress Note Assessment/Plan: Assessment/Plan 38 year old male with OM left foot s/p 2d 3rd toe and metatarsal amputatio. Path negative for osteo. Homeless, alcohol abuse. IV vanc to stop today, oxy/gabapentin for pain control clear for discharge from a surgical standpoint continue wound management/dressing changes-ok to shower cam boot for walking and support S: Very relieved O: Sitting on edge of bed, NAD afebrile, VSS no increased WOB HR reg skin warm and dry, left foot-pedal and distal tibial pulses 2+. Minor swelling. No erythema , 11/16/18 10:27 11/16/18 10:33 11/16/18 10:35 11/16/18 10:37 11/16/18 15:34 11/16/18 15:37 11/16/18 15:39 11/16/18 16:27 11/22/18 09:26 Objective: Vital Signs Temp Pulse Resp BP Pulse Ox 37.0 C 88 16 106/74 96 11/22/18 08:52 11/22/18 08:52 11/22/18 08:52 11/22/18 08:52 11/22/18 08:52 Microbiology 11/14/18 17:30 Gram Stain - Final Toe - Bone Anaerobic Culture - Final Staphylococcus Aureus Laboratory Results 11/17/18 04:50 11/21/18 09:30 11/21/18 11/22/18 11/23/18 05:59 05:59 05:59 Intake Total 1200 850 Balance 1200 850 PT 13.2 SEC (12.0-15.0) 11/12/18 04:38 INR 1.04 (0.83-1.16) 11/12/18 04:38 ICD10 Worksheet Patient Problems: Problems Problem Status Onset Cellulitis of foot Acute Osteomyelitis Acute Left arm cellulitis Acute
[2018-11-22 11:23] VITALS: BP 112/82
--- NOTE | 2018-11-22 12:27 | ASDISCHSUM ---
Discharge Information Plan Status:Homeless/[facility] Medically Cleared to Leave:11/22/2018 Discharge Date:11/22/2018 CM D/C Disposition:Home, Routine, Self-Care ADT D/C Disposition: Projected Discharge Date:11/22/2018 Transportation at D/C:Bus Ticket Discharge Delay Reason: Follow-Up Date:11/22/2018 Discharge Slot: Final Diagnosis: Placement Information Patient Contact Information Contact Name:ANA Relationship: Address: Home Phone: Work Phone: City: Alternate Phone: State/PCS [place] Code: Email: Financial Information Financial Class:Medicaid Primary Plan Desc:[facility] Primary Plan Number:[id number] Secondary Plan Desc: Secondary Plan Number: Assessment Information [facility] Progress Note CM Note CM Note Notes: Patient admitted with L Foot Osteomyelitis, surgery following - may need amputation. Per RN, patient has concerns about long-term plan if surgery is indicated. Met with patient to discuss concerns. Patient is currently homeless, has been staying with a friend some. He states he has been trying to work, however, the pain in his feet has caused some limitations. CM explained the options including: possible SNF placement under LTC Medicaid or residential/[facility] follow-up if surgery is not indicated (Patient is currently being followed by [facility]). Patient states he is a [facility] patient and has completed CE in the past. Once medical plan is confirmed, will proceed with disposition plan, either d/c home with community follow-up or attempt to place in SNF. Patient states he would agree to the 30-day Medicaid stay. CM will follow. Plan: TBD Date Signed: 11/13/2018 03:45 PM Electronically Signed By:Tegan Sotelo RN [facility] Progress Note CM Note CM Note Notes: Patient is to go to OR for amputation of two toes. He expressed to hospital medicine a desire to inflict harm to himself, [facility] called and is seeing patient. I have sent the [facility] 100 application to see if LTC can be a feasible option. CM to follow for needs. Plan: TBD Date Signed: 11/14/2018 03:41 PM Electronically Signed By:Martha Banuelos RN [facility] Progress Note Notes Note: Notes: Pt's hospitalist contacted [facility], after pt referred to some vague SI, just prior to undergoing surgery where he will lose part if not all of his foot. [facility] clinician spent 90 minutes with pt. Pt is presently unemployed and homeless; he has had multiple losses throughout his life, both material and emotional, and is now facing the loss of part of his limb. He is without family support and is not involved in [facility] or other supportive agency. He has had medical needs in the past that have been addressed and left him feeling uncared for and neglected. He is expressing much anxiety, fear and sadness. Pt will not directly say whether he is suicidal. He speaks of a friend who has committed suicide and casually expresses methods that he could use if he also wanted to kill himself. His suicidal language appears directly related to above mentioned emotions and to his concern of surviving in his world with less physical capacity. He has been treated for psychiatric issues in the past, most probablly depression. Following the amputation of his big toe,from his presently infected foot, he was sent to [facility]. He also refers to being placed on anti-depressants in the past. Throughout the course of the discussion pt's speech became less guarded and less angry; he was able to express increasingly personal information. Many of his statements inferred that he is expecting a future following surgery. Pt does not currently present as a danger to himelf ; however depending on the outcome of surgery and whether he will be able to be provided some medical respite prior to returning to his homelessness, this could again become a concern. [facility]HA clincian will check in with pt following his surgery. Date Signed: 11/14/2018 04:22 PM Electronically Signed By:Shira Barragan [facility] Progress Note Notes Note: Notes: [facility] clinician met again with pt following surgery. He had 2 of his toes on his left foot removed. In 3 days they will determine if any additional surgery is needed. Pt's spirits were bright; he shared details of his growing up in a poor and tough neighborhood and used his sense of humor to, as he called it ,"reframe" this experience. He spoke of things he would like to do in his future; he has been thinking of returning to school. There are noconcerns at the current time re self-harm/suicidal intent. Date Signed: 11/14/2018 08:47 PM Electronically Signed By:Shira Barragan [facility] Progress Note CM Note CM Note Notes: Chart reviewed. POD 2. No therapies yet. [facility] to come to assess today. [facility] following. CM to follow for needs, Plan: TBD Date Signed: 11/16/2018 10:19 AM Electronically Signed By:Martha Banuelos RN [facility] Progress Note CM Note CM Note Notes: Patient plan of care reviewed in am rounds. Patient is a 38 year old homeless male with anxiety and history of alcohol abuse admitted with osteomylitis of his toes on left foot. Amputation of second and third toes 2 days ago. Awaiting PT evaluation. Dr. Lorena Hernandez asked to weigh in on behaviours and [facility] has seen the patient two times recently. He is not appropriate for behavioral health admission per Dr. Hernandez at this time. This feature writer has left a message with Carmita Arreola to see patient. Patient is hoping to get some type of respite care and seems very cooperative with measures to taper alcohol use. He has no family or contacts. [facility] 100 pending. Awaiting therapy recommendations. Plan: TBD Date Signed: 11/16/2018 03:32 PM Electronically Signed By:Martha Banuelos RN [facility] Progress Note CM Note CM Note Notes: CM received call from Carmita Arreola, she shared she is unable to meet with the patient and will be able to meet with him on Tuesday if he is still inpatient. CM met with patient to sign Release of Information for [employer] to support [facility] processing. Patient signed WILLIAM without issue. Mike shared he is ready to leave the hospital and is frustrated about his condition. CM worked with the patient during the last discharge and reflected back to him that he is sharing his discomfort with medical treatment and also see he presented back to the hospital after he was discharged and asked what motivated him to come back. He shared his toes looked really bad and though he is frustrated & depressed, he does not want to . 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 CM shared I will fax the Medical Records request to [facility] (faxed & received confirmation) to continue processing for application for [facility] Medicaid. CM to follow. D/C Plan: TBD Date Signed: 11/17/2018 02:56 PM Electronically Signed By:Nidhi Weaver [facility] Progress Note CM Note CM Note Notes: 11/20/2018 Case Management Note Discussed pt during rounds this morning. Path results pending to determine discharge iv antibiotic needs. Pt on contact precautions for MRSA and MSSA. PT has cleared for independent discharge. Pt ambulates in the halls without difficulty. Met w/pt to discuss discharge options. Pt is not willing to agree to a 30 day stay in SNF. Pt states he feels he will recover faster than that. Mari Vickers from [facility] to assess pt today for Level 2 PASRR. Provided requested records. Pt does not have friends or family in the area where he can recuperate. Attempted to discuss coming to the outpatient infusion center daily. Pt stated if transportation were provided he would consider it, however he felt the iv abx were not needed. Pt is upset about multiple iv insertions. Pt also upset that he is not allowed to smoke on [facility] campus. Updated Correctional Officer Captain and Director on case. Case Management d/c poc: to be determined. Case Management to follow. Date Signed: 11/20/2018 12:47 PM Electronically Signed By:Brii Rascon RN [facility] Progress Note CM Note CM Note Notes: Mari from [facility] here today to complete a Level 2 PASRR evaluation. She will write up report jeni. Pt's d/c plan still unclear. D/C plan: TBD Date Signed: 11/20/2018 03:53 PM Electronically Signed By:DARLYN Nathan [facility] Progress Note CM Note CM Note Notes: 11/21/2018 Case Management Note Discussed pt during rounds. Pathology report pending. Please see Carmita Arreola note from 11/20. Please see RN note from 11/20 regarding pt behaviors overnight. Discharge plan regarding IV antibiotics will be complicated by event last night. Case Management d/c poc: to be determined. Case Management to follow. Date Signed: 11/21/2018 11:49 AM Electronically Signed By:Brii Rascon RN Intervention Information
--- NOTE | 2018-11-22 14:15 | PDDCSUM ---
Discharge Summary Discharge Summary: Date of Admission: 11/13/2018 Date of Discharge: 11/22/2018 Consults: Surgery, ID Procedures: Foot XR, MRI LE, UE U/S, S/p resection of 2nd/3rd toes LLE Followup: Surgery, PCP Hospital Course Problem List: #Left foot OM: s/p resection of 2nd and 3rd toes (great toe previously resected) -S/p 10 days of IV Vanc per ID - Bone pathology shows no evidence of osteomyelitis at proximal margins of left 2nd and 3rd toes as well as no osteomyelitis of the 2nd and 3rd metatarsal heads. - Patient will have follow-up with surgery postoperatively for ongoing management of his surgical site. #RUE Superficial Thrombophlebitis: seen on U/S done 11/20. Apply warm compress. #ETOH abuse: counseled on cessation. # SI - suspect there is a component of PTSD, mood depressed with amputation -[facility] evaluation ordered #Tobacco use - Nicorette gum # Homeless Time spent on discharge was >35 minutes with >50% of time spent on patient education and counseling.
--- NOTE | 2018-11-22 16:25 | ASMTLACE ---
IDALIA Length of stay for Answers: 7-13 days current admission Acuity / Level of Answers: Yes Care: Did the patient have an inpatient admission? Comorbidities - select Answers: Other Notes: neuropathy in feet, toe all that apply amputation, osteomyelit is # of Emergency department Answers: 5-8 visits in the last 6 months Social determinants Answers: History of substance abuse (ETOH, street drugs, prescription drugs, etc.) Homelessness (street, assisted) Score: 19 Date Signed: 11/22/2018 04:25 PM Electronically Signed By:DARLYN Nathan
--- NOTE | 2018-11-22 16:26 | ASMTDCNOTE ---
Case Management Discharge Discharge Order Complete? Answers: Yes Patient to Obtain Answers: Independently Medications Transportation Arranged Answers: Bus Tokens Discharge Comments Notes: Pt is discharging independent today. A long term bed was reserved for him tonight and he was provided a bus voucher. Date Signed: 11/22/2018 04:25 PM Electronically Signed By:DARLYN Nathan
== END 2018-11-22 13:21 | disposition home or self-care (01) | DRG 314 ==
LOC: EDUNIT# → F1N 11-12 07:58 → OBSVTOIN 11-13 16:02
PROVIDERS: ADMIT Student in an Organized Health Care Education/Training Program; ATTEND Student in an Organized Health Care Education/Training Program
PROC: 0Y6U0Z0 Detachment at Left 3rd Toe, Complete, Open Approach (ICD-10-PCS; principal; 2018-11-14 15:30)
PROC: 0Y6S0Z0 Detachment at Left 2nd Toe, Complete, Open Approach (ICD-10-PCS; principal; 2018-11-14 15:30)
DX: M86.172 Other acute osteomyelitis, left ankle and foot (principal); I80.8 Phlebitis and thrombophlebitis of other sites; L03.032 Cellulitis of left toe; Y90.8 Blood alcohol level of 240 mg/100 ml or more; F10.10 Alcohol abuse, uncomplicated; Z59.0 Homelessness; F43.10 Post-traumatic stress disorder, unspecified; F32.9 Major depressive disorder, single episode, unspecified; Z72.0 Tobacco use; Z89.412 Acquired absence of left great toe
CPT/HCPCS: 96365; 97161-GP; 97165-GO; 97530-GO; A9585; G0378; G0480; J0696; J1650; J2060; J2250; J2543; J2704; J2710; J3010; J3370

== ENCOUNTER 2019-01-25 17:29 | Emergency (ER) | payer MEDICAID ==
--- NOTE | 2019-01-25 17:46 | EDPHY ---
H & P Time Seen by Provider: 01/25/19 17:34 HPI/ROS: CHIEF COMPLAINT: "Feeling high" HISTORY OF PRESENT ILLNESS: The patient is a 38-year-old male presents emergency department with a strain sensation of feeling high. This morning the patient smoked marijuana. This is typical for him. He did not have any odd sensation. The patient states that approximately 1:00 p.m. he took 800 mg of gabapentin. He had been off that medication for the past month and this was his 1st dose. He says after taking the gabapentin he felt hot and high. The patient also complains of a right buttock wound. He feels he may have sat on a pine needle. Patient denies any fevers or chills. No focal weakness or numbness. No visual change. No headache. No neck pain. No chest pain or shortness of breath. No abdominal pain. The patient denies alcohol use. REVIEW OF SYSTEMS: 10 systems were reveiwed and are negative with the exception of the elements mentioned in the history of present illness. Past Medical/Surgical History: Social history: Includes marijuana use. [facility]. Smoking Status: Current every day smoker Physical Exam: Vitals noted GENERAL: Well-appearing, in no acute distress, alert. HEENT: Eyes normal to inspection, normal pharynx, no signs of dehydration. NECK: Normal, supple. RESPIRATORY: Clear to auscultation bilaterally, no rales, rhonchi or wheezing. CVS: Regular rate and rhythm, no rubs, murmurs, or gallops. ABDOMEN: Soft, nontender, nondistended, no organomegaly. BACK: Normal to inspection, no CVA tenderness. SKIN: Patient's right buttock has an early superficial ulcer. There is no surrounding erythema or warmth. No fluctuance or mass. No discharge. No visible foreign body. His skin is otherwisenormal color, no rash, warm, dry. No pallor. EXTREMITIES: No pedal edema, no calf tenderness, no Homans sign or cords, no joint swelling. NEURO/PSYCH: Alert and oriented, normal mood and affect, normal motor sensory exam. No obvious cranial nerve deficit. Allergies/Adverse Reactions: No Known Allergies Allergy (Unverified 11/11/18 23:22) Home Medications: Medication Instructions Recorded Amitriptyline HCl [Elavil] 25 mg PO TID 10/08/18 Gabapentin [Gabapentin 800 mg] 800 mg PO TID 10/08/18 Herbals/Supplements -Info Only 1 ea PO DAILY 10/08/18 Melatonin [Melatonin 3 MG (*)] 3 mg PO HS PRN 10/08/18 Multivitamins [Multivitamin (*)] 1 each PO DAILY 10/08/18 Regina-3 Fatty Acids [Fish Oil 1000 1,000 mg PO DAILY 10/08/18 mg (*)] hydrOXYzine HCL [Vistaril 50MG 50 mg PO DAILY 10/08/18 (RX)] hydrOXYzine HCL [Vistaril 50MG 50 mg PO TID PRN 10/08/18 (RX)] Folic Acid [Folic Acid 1 MG (*)] 1 mg PO DAILY #30 tab 11/22/18 Ibuprofen [Motrin (*)] 600 mg PO Q6HRS PRN tab 11/22/18 Thiamine HCl [Vitamin B-1] 100 mg PO DAILY #30 tab 11/22/18 oxyCODONE IR [Oxycodone Ir (*)] 5 - 15 mg PO Q3HRS PRN #30 tab 11/22/18 Medical Decision Making ED Course/Re-evaluation: In the emergency department discussed possible etiologies. I answered all his questions. At this time I do not feel the patient needs laboratories 10 sting or imaging. Patient's wound was cleaned and dressed. He was given Band-Aids and bacitracin upon discharge for wound care. He was given follow-up with outpatient medicine. I do not feel the patient needs systemic antibiotics. Differential Diagnosis: Differential includes but is not limited to ulcer, cellulitis, abscess, medication reaction, CVA, toxication Departure - Departure Disposition: Home, Routine, Self-Care Clinical Impression: Decubitus ulcer, buttock Qualifiers: Pressure injury stage: stage 1 Laterality: right Qualified Code(s): L89.311 - Pressure ulcer of right buttock, stage 1 Condition: Good Instructions: Pressure Injury (ED), Acute Wounds (ED) Additional Instructions: Return with increasing confusion, headache, weakness, numbness, fever or any other concerns. Change your buttock dressing once daily. Referrals: Abel Orr DO [Doctor of Osteopathy] - 5-7 days, call for appt.
[2019-01-25 18:59] VITALS: BP 110/77
== END 2019-01-25 18:59 | disposition home or self-care (01) ==
LOC: EDUNIT#
DX: L89.311 Pressure ulcer of right buttock, stage 1 (principal); F17.210 Nicotine dependence, cigarettes, uncomplicated